=== PATIENT | female | born 1975 | race Caucasian/White ===

== ENCOUNTER 2020-09-13 17:10 | Inpatient (IN) | payer MEDICAID ==
[~2020-09-13] VITALS: Ht 175.3 cm; Wt 90.4 kg
--- NOTE | 2020-09-13 18:22 | PDOC2 ---
CONSULT Date of Consult Date of Consult DATE: 09/13/20 TIME: 18:17 Reason for Consult Reason for Consult: Abdominal pain Referring Physician Referring Physician: Pedro Identification/Chief Complaint Chief Complaint Abdominal pain nausea vomiting Source Source: Chart review, Patient History of Present Illness Reason for Visit: 45-year-old female with 2-week history of epigastric abdominal pain. She has been self-medicating with Aleve and ibuprofen. Does drink alcohol but has not for the last 3 days. She developed nausea vomiting over the last 24 hours and was told by a friend that a look like she was vomiting blood that is why she came to the emergency department for further evaluation. CT scan performed which showed abnormal thickening of the stomach consistent with gastritis as well as small extraluminal air perigastric concerning for gastric ulcer perforation. Patient currently is resting in bed describes her pain as 7 out of 10 although she appears fairly comfortable. She denies any nausea vomiting since coming to the emergency room. Patient denies any other medical problems although she has not seen a physician since 2006 and has not been taking her medications if she has not had a medical card since then but could not elaborate on the medication she is supposed to be taking Past Medical History Cardiovascular: No pertinent hx Pulmonary: No pertinent hx GI: No pertinent hx Heme/Onc: No pertinent hx Hepatobiliary: No pertinent hx Psych: No pertinent hx Rheumatologic: No pertinent hx Infectious disease: No pertinent hx ENT: No pertinent hx Renal/: No pertinent hx Endocrine: No pertinent hx Dermatology: No pertinent hx Past Surgical History Past Surgical History: Other (Repair of fracture left arm) Family History Family History: No Significant Social History ALCOHOL: occassional Drugs: None Lives: with Family ROS General: YES: Malaise Gastrointestinal: Yes Nausea, Yes Vomiting, Yes Abdominal Pain Physical Exam General: Alert, Oriented X3, Cooperative, mild distress HEENT: Atraumatic, EOMI Lungs: Clear to auscultation, Normal air movement Heart: Regular rate, No murmurs Abdomen: Soft, Other (Hypoactive bowel sounds tender to palpation in the epigastrium no peritoneal signs) Extremities: No edema Skin: No significant lesion Neuro: Normal speech Psych/Mental Status: Mental status NL Assessment/Plan Assessment/Plan Epigastric pain with possible gastric ulcer microperforation currently stable. Treat medically IV antibiotics proton pump inhibitor strict n.p.o. except for ice chips. Repeat lab in the a.m. with physical exam may need surgical interven tion if condition worsens JHONY NÚÑEZ MD Sep 13, 2020 18:22
[2020-09-13 19:00] VITALS: BP 117/77
[2020-09-13] MEDS ORDERED: IBUP200T44 PO (19:55)
[2020-09-13] MEDS ORDERED: NAPR500T8 PO (19:55)
[2020-09-13] MEDS: MORPHINE SULFATE 2 MG/ML INJ. IV PRN ×2 (20:39→22:53)
--- NOTE | 2020-09-13 20:59 | PDOC1 ---
History and Physical Date of Service: DOS: DATE: 09/13/20 TIME: 20:49 Chief Complaint: Chief Complain: Abdominal pain History of Present Illness: HPI: Patient is a 45-year-old female with past medical history of plaque psoriasis, alcohol use, smoking who presents with 2-week history of epigastric abdominal pain and nausea vomiting. Abdominal pain got worse last Thursday, 9 out of 10 cramping sensation. She states that there is some blood in her vomitus and it in her stool. Her last alcoholic drink was on . She has been taking Aleve and ibuprofen for her pains. She does not take any antiacid medications. She was seen in the ED at [facility] and found on CT scan performed which showed abnormal thickening of the stomach consistent with gastritis as well as small extraluminal air perigastric concerning for gastric ulcer perforation. Patient currently is complaining of epigastric abdominal pain and appears to be very much in distress. Past Medical/Surgical History: PMH/PSH: Medical history of plaque psoriasis. Denies any surgical history Allergies: Allergies: Coded Allergies: No Known Drug Allergies (Unverified , 09/13/20) Family History: Family History: Reviewed with no relevant findings Social History: Social History: Alcohol use not often according to her and continues to smoke Current Medications: Current Medications Current Medications Morphine Sulfate (Morphine Sulfate) 2 mg PRN Q2HR PRN IV PAIN Last administered on 09/13/20at 20:39; Start 09/13/20 at 20:30 Active Scripts Active Reported Motrin Ib (Ibuprofen) 200 Mg Tablet 200 Mg PO PRN Q4-6HRS PRN Naproxen 500 Mg Tablet.dr 500 Mg PO 6XDAY ROS: Review of Systems Review of System REVIEW OF SYSTEMS: GENERAL: Denies weakness SKIN: No bruising, hair changes or rashes. EYES: No blurred, double or loss of vision. NOSE AND THROAT: No history of nosebleeds, hoarseness or sore throat. HEART: No history of palpitations, chest pain or shortness of breath on exertion. LUNGS: Denies cough, hemoptysis, wheezing or shortness of breath. GASTROINTESTINAL: Denies changes in appetite, nausea, vomiting, diarrhea or constipation. GENITOURINARY: No history of frequency, urgency, hesitancy or nocturia. NEUROLOGIC: Denies history of numbness, tingling, or tremor. PSYCHIATRIC: No history of panic, anxiety or depression. ENDOCRINE: No history of heat or cold intolerance, polyuria or polydipsia. EXTREMITIES: Denies joint pain, pain on walking or stiffness. Physical Exam: Physcial Exam: GEN: No apparent distress. Alert and oriented HEENT: Normal cephalic, atraumatic, external auditory canals are patent EYES: Extraocular muscles are intact, pupil are equally round and reactive to light and accommodation MUSCULOSKELETAL: Well developed , well nourished, good range of motion ENDOCRINE: No thyromegaly was palpated LYMPHATICS: No cervical chain or axillary nodes were noted HEMATOPOIETIC: No bruising NECK: Supple, no JVD, no thyromegaly was noted LUNGS: Clear to auscultation in all lung ruggiero without rhonchi or wheezing HEART: RRR, S!, S2 present. Peripheral pulses intact, no obvious murmurs noted ABDOMEN: Soft, epigastric tenderness with guarding positive bowel sounds, no organomegaly, normal bowel sounds EXTREMITIES: Without clubbing, cyanosis, or edema. Pedal pulses intact. Negative Homans sign NEUROLOGIC: Normal speech and tone. A&O x 3, moves all extremities, no obvious focal deficits PSYCHIATRIC: Normal affect, normal mood. Stable SKIN: No ulcerations or rashes, good skin turgor, no jaundice VASCULAR: Good capillary refill, neurovascular bundle appears to be intact Labs: Labs: Significant for sodium of 130 Potassium of 2.9 Creatinine of 1.1 WBC of 20.6 Images: Images CT scan performed which showed abnormal thickening of the stomach consistent with gastritis as well as small extraluminal air perigastric concerning for gastric ulcer perforation Assessment/Plan Assessment/Plan Sepsis Acute abdominal pain due to perforated gastric ulcer Hyponatremia BARBARA due to vasomotor nephropathy Tobacco misuse Admit to medicine for further management General surgery consult Strict n.p.o. Continue IV fluids IV electrolyte replacement as needed IV Protonix Serial abdominal exams Contraindicated for DVT prophylaxis IV Protonix GI prophylaxis Full code Discussed with RN and SW Disposition inpatient management as above Surrogate decision maker is boyfriend Smoking cessation: Total time spent was 12 minutes in face to face counseling. Patient has agreed to consider nicotine patches/gum or to start on Varnicline when discharged Justifications for Admission Other Justification AVELINO RING MD Sep 13, 2020 20:59
[2020-09-13] MEDS ORDERED: DEXTROSE 50% 25 GM / 50ML DISP.SYRIN. IV PRN (21:00)
[2020-09-13] MEDS ORDERED: MORPHINE SULFATE 2 MG/ML INJ. IVP PRN (21:00)
[2020-09-13] MEDS ORDERED: ONDANSETRON PF 4 MG/2 ML VIAL. IVP PRN (21:00)
[2020-09-13] MEDS ORDERED: DOCUSATE SODIUM 100 MG CAPSULE. PO PRN (21:00)
[2020-09-13] MEDS ORDERED: SENNOSIDES 8.6 MG TABLET PO PRN (21:00)
[2020-09-13] MEDS ORDERED: MORPHINE SULFATE 2 MG/ML INJ. IV PRN (21:00)
[2020-09-13 21:31] LABS: BASO # 0.1 x10^3/uL (0.0-0.2); BASO % 1 % (0-3); EOS % 0 % (0-3); HEMATOCRIT 45.1 % (36.0-47.0); HEMOGLOBIN 15.3 g/dL (12.0-15.5); LYMPH # 0.2 x10^3/uL (1.0-4.8); LYMPH % 2 % (24-48); MEAN CORPUSCULAR HEMOGLOBIN 33 pg (25-35); MEAN CORPUSCULAR HGB CONC 34 g/dL (31-37); MEAN CORPUSCULAR VOLUME 97 fL (79-100); MONO # 0.3 x10^3/uL (0.0-1.1); MONO % 3 % (0-9); NEUT # 9.7 x10^3/uL (1.8-7.7); NEUT % 94 % (31-73); PLATELET COUNT 188 x10^3/uL (140-400); RED BLOOD COUNT 4.65 x10^6/uL (3.50-5.40); WHITE BLOOD COUNT 10.3 x10^3/uL (4.0-11.0)
[2020-09-13] MEDS: IV NORMAL SALINE 1000ML BAG 1,000 ML IV SCH (21:39)
[2020-09-13] MEDS: PANTOPRAZOLE IV PUSH 40 MG VIAL. IVP SCH (21:39)
[2020-09-13 21:46] LABS: ALBUMIN 3.4 g/dL (3.4-5.0); ALBUMIN/GLOBULIN RATIO 0.9 (1.0-1.7); CALCIUM 8.8 mg/dL (8.5-10.1); CREATININE 1.5 mg/dL (0.6-1.0); GFR 37.6; MAGNESIUM 1.6 mg/dL (1.8-2.4); PHOSPHORUS 2.6 mg/dL (2.6-4.7); POTASSIUM 3.9 mmol/L (3.5-5.1)
[2020-09-13 21:58] LABS: % BANDS 30 % (0-9); % LYMPHS 2 % (24-48); % MONOS 4 % (0-10); % SEGS 64 % (35-66); PLT ESTIMATE ADEQUATE (ADEQUATE); TOXIC VACUOLATION SLIGHT
[2020-09-13] MEDS: PIPERACILLIN/TAZOBACTAM 3.375 GM in IV NORMAL SALINE 50ML 50 ML IV SCH (22:53)
[2020-09-13 23:00] VITALS: BP 89/55
[2020-09-14] VITALS (20 sets, daily range): BP systolic 64–127; BP diastolic 40–77
[2020-09-14] MEDS ORDERED: ELECTROLYTE (NON-ICU) PROTOCOL. MC PRN (02:00)
[2020-09-14] MEDS: MORPHINE SULFATE 2 MG/ML INJ. IV PRN ×2 (02:19→18:27)
[2020-09-14] MEDS ORDERED: IV NORMAL SALINE 1000ML BAG 1,000 ML IV ONE ×2 (03:30)
[2020-09-14] MEDS ORDERED: MAGNESIUM SULFATE 2GM 50 ML IV ONE (03:30)
[2020-09-14] MEDS: DICYCLOMINE 20 MG/2 ML VIAL. IM PRN (04:15)
[2020-09-14] MEDS: PIPERACILLIN/TAZOBACTAM 3.375 GM in IV NORMAL SALINE 50ML 50 ML IV SCH ×2 (04:55→12:31)
[2020-09-14] MEDS: IV NORMAL SALINE 1000ML BAG 1,000 ML IV SCH ×3 (05:24→16:47)
--- NOTE | 2020-09-14 05:51 | NUR ---
Notified of low blood pressure and patient unable to urinate (bladder scan showed 0). Orders for another 500ml bolus and contact him with BP results when complete.
[2020-09-14] MEDS ORDERED: IV NORMAL SALINE 500ML BAG 500 ML IV ONE ×2 (06:15→07:15)
[2020-09-14 08:30] LABS: BASO % 0 % (0-3); EOS % 0 % (0-3); HEMATOCRIT 34.7 % (36.0-47.0); HEMOGLOBIN 11.6 g/dL (12.0-15.5); LYMPH # 0.4 x10^3/uL (1.0-4.8); LYMPH % 4 % (24-48); MEAN CORPUSCULAR HEMOGLOBIN 33 pg (25-35); MEAN CORPUSCULAR HGB CONC 33 g/dL (31-37); MEAN CORPUSCULAR VOLUME 99 fL (79-100); MONO # 0.4 x10^3/uL (0.0-1.1); MONO % 4 % (0-9); NEUT % 92 % (31-73); PLATELET COUNT 148 x10^3/uL (140-400); RED BLOOD COUNT 3.51 x10^6/uL (3.50-5.40); RED CELL DISTRIBUTION WIDTH 14.2 % (11.5-14.5); WHITE BLOOD COUNT 9.9 x10^3/uL (4.0-11.0)
[2020-09-14 09:08] LABS: CALCIUM 7.2 mg/dL (8.5-10.1); CREATININE 2.3 mg/dL (0.6-1.0); GFR 22.9; MAGNESIUM 1.9 mg/dL (1.8-2.4); PHOSPHORUS 2.9 mg/dL (2.6-4.7); POTASSIUM 3.7 mmol/L (3.5-5.1)
[2020-09-14] MEDS: PANTOPRAZOLE IV PUSH 40 MG VIAL. IVP SCH (10:18)
[2020-09-14 10:54] LABS: BARBITURATES NEG (NEG); BENZODIAZEPINES NEG (NEG); CANNABINOIDS NEG (NEG); COCAINE NEG (NEG); METHADONE NEG (NEG); OPIATES POS (NEG); PHENCYCLIDINE NEG (NEG)
[2020-09-14 10:56] LABS: AMPHETAMINE/METHAMPHETAMINE NEG (NEG)
--- NOTE | 2020-09-14 11:14 | PDOC ---
MARTIN GARCIA AMMONIUM NITRATE NEUTRALIZER 09/14/20 1114: SURGICAL PROGRESS NOTE DATE: 09/14/20 TIME: 11:12 Subjective ongoing pain d/w IPC, continue low pressor, now ARF, ICU tx Vital Signs Vital Signs Date Time Temp Pulse Resp B/P (MAP) Pulse Ox O2 Delivery O2 Flow Rate FiO2 09/14/20 08:00 Room Air 09/14/20 07:00 98.7 112 17 73/53 (60) 90 98.7 I&O Intake and Output 09/14/20 07:00 Intake Total 0 ml Balance 0 ml Intake Oral 0 ml General: Cooperative, Other (ill appearing ) Abdomen: Soft, Other (ttp upper abdomen) Labs Laboratory Tests Test 09/13/20 21:15 09/14/20 07:25 09/14/20 10:13 White Blood Count 10.3 x10^3/uL (4.0-11.0) 9.9 x10^3/uL (4.0-11.0) Red Blood Count 4.65 x10^6/uL (3.50-5.40) 3.51 x10^6/uL (3.50-5.40) Hemoglobin 15.3 g/dL (12.0-15.5) 11.6 g/dL (12.0-15.5) Hematocrit 45.1 % (36.0-47.0) 34.7 % (36.0-47.0) Mean Corpuscular Volume 97 fL (79-100) 99 fL (79-100) Mean Corpuscular Hemoglobin 33 pg (25-35) 33 pg (25-35) Mean Corpuscular Hemoglobin Concent 34 g/dL (31-37) 33 g/dL (31-37) Red Cell Distribution Width 14.0 % (11.5-14.5) 14.2 % (11.5-14.5) Platelet Count 188 x10^3/uL (140-400) 148 x10^3/uL (140-400) Neutrophils (%) (Auto) 94 % (31-73) 92 % (31-73) Lymphocytes (%) (Auto) 2 % (24-48) 4 % (24-48) Monocytes (%) (Auto) 3 % (0-9) 4 % (0-9) Eosinophils (%) (Auto) 0 % (0-3) 0 % (0-3) Basophils (%) (Auto) 1 % (0-3) 0 % (0-3) Neutrophils # (Auto) 9.7 x10^3/uL (1.8-7.7) 9.0 x10^3/uL (1.8-7.7) Lymphocytes # (Auto) 0.2 x10^3/uL (1.0-4.8) 0.4 x10^3/uL (1.0-4.8) Monocytes # (Auto) 0.3 x10^3/uL (0.0-1.1) 0.4 x10^3/uL (0.0-1.1) Eosinophils # (Auto) 0.0 x10^3/uL (0.0-0.7) 0.0 x10^3/uL (0.0-0.7) Basophils # (Auto) 0.1 x10^3/uL (0.0-0.2) 0.0 x10^3/uL (0.0-0.2) Segmented Neutrophils % 64 % (35-66) Band Neutrophils % 30 % (0-9) Lymphocytes % 2 % (24-48) Monocytes % 4 % (0-10) Toxic Vacuolation Slight Platelet Estimate Adequate (ADEQUATE) Prothrombin Time 13.0 SEC (11.7-14.0) Prothromb Time International Ratio 1.0 (0.8-1.1) Sodium Level 132 mmol/L (136-145) 138 mmol/L (136-145) Potassium Level 3.9 mmol/L (3.5-5.1) 3.7 mmol/L (3.5-5.1) Chloride Level 98 mmol/L (98-107) 108 mmol/L (98-107) Carbon Dioxide Level 24 mmol/L (21-32) 19 mmol/L (21-32) Anion Gap 10 (6-14) 11 (6-14) Blood Urea Nitrogen 19 mg/dL (7-20) 24 mg/dL (7-20) Creatinine 1.5 mg/dL (0.6-1.0) 2.3 mg/dL (0.6-1.0) Estimated GFR (Cockcroft-Gault) 37.6 22.9 BUN/Creatinine Ratio 13 (6-20) Glucose Level 134 mg/dL (70-99) 109 mg/dL (70-99) Lactic Acid Level 1.8 mmol/L (0.4-2.0) Calcium Level 8.8 mg/dL (8.5-10.1) 7.2 mg/dL (8.5-10.1) Phosphorus Level 2.6 mg/dL (2.6-4.7) 2.9 mg/dL (2.6-4.7) Magnesium Level 1.6 mg/dL (1.8-2.4) 1.9 mg/dL (1.8-2.4) Total Bilirubin 1.0 mg/dL (0.2-1.0) Aspartate Amino Transf (AST/SGOT) 14 U/L (15-37) Alanine Aminotransferase (ALT/SGPT) 12 U/L (14-59) Alkaline Phosphatase 56 U/L (46-116) Total Protein 7.0 g/dL (6.4-8.2) Albumin 3.4 g/dL (3.4-5.0) Albumin/Globulin Ratio 0.9 (1.0-1.7) Urine Opiates Screen Pos (NEG) Urine Methadone Screen Neg (NEG) Urine Barbiturates Neg (NEG) Urine Phencyclidine Screen Neg (NEG) Urine Amphetamine/Methamphetamine Neg (NEG) Urine Benzodiazepines Screen Neg (NEG) Urine Cocaine Screen Neg (NEG) Urine Cannabinoids Screen Neg (NEG) Urine Ethyl Alcohol Neg (NEG) Laboratory Tests Test 09/13/20 21:15 09/14/20 07:25 09/14/20 10:13 White Blood Count 10.3 x10^3/uL (4.0-11.0) 9.9 x10^3/uL (4.0-11.0) Red Blood Count 4.65 x10^6/uL (3.50-5.40) 3.51 x10^6/uL (3.50-5.40) Hemoglobin 15.3 g/dL (12.0-15.5) 11.6 g/dL (12.0-15.5) Hematocrit 45.1 % (36.0-47.0) 34.7 % (36.0-47.0) Mean Corpuscular Volume 97 fL (79-100) 99 fL (79-100) Mean Corpuscular Hemoglobin 33 pg (25-35) 33 pg (25-35) Mean Corpuscular Hemoglobin Concent 34 g/dL (31-37) 33 g/dL (31-37) Red Cell Distribution Width 14.0 % (11.5-14.5) 14.2 % (11.5-14.5) Platelet Count 188 x10^3/uL (140-400) 148 x10^3/uL (140-400) Neutrophils (%) (Auto) 94 % (31-73) 92 % (31-73) Lymphocytes (%) (Auto) 2 % (24-48) 4 % (24-48) Monocytes (%) (Auto) 3 % (0-9) 4 % (0-9) Eosinophils (%) (Auto) 0 % (0-3) 0 % (0-3) Basophils (%) (Auto) 1 % (0-3) 0 % (0-3) Neutrophils # (Auto) 9.7 x10^3/uL (1.8-7.7) 9.0 x10^3/uL (1.8-7.7) Lymphocytes # (Auto) 0.2 x10^3/uL (1.0-4.8) 0.4 x10^3/uL (1.0-4.8) Monocytes # (Auto) 0.3 x10^3/uL (0.0-1.1) 0.4 x10^3/uL (0.0-1.1) Eosinophils # (Auto) 0.0 x10^3/uL (0.0-0.7) 0.0 x10^3/uL (0.0-0.7) Basophils # (Auto) 0.1 x10^3/uL (0.0-0.2) 0.0 x10^3/uL (0.0-0.2) Segmented Neutrophils % 64 % (35-66) Band Neutrophils % 30 % (0-9) Lymphocytes % 2 % (24-48) Monocytes % 4 % (0-10) Toxic Vacuolation Slight Platelet Estimate Adequate (ADEQUATE) Prothrombin Time 13.0 SEC (11.7-14.0) Prothromb Time International Ratio 1.0 (0.8-1.1) Sodium Level 132 mmol/L (136-145) 138 mmol/L (136-145) Potassium Level 3.9 mmol/L (3.5-5.1) 3.7 mmol/L (3.5-5.1) Chloride Level 98 mmol/L (98-107) 108 mmol/L (98-107) Carbon Dioxide Level 24 mmol/L (21-32) 19 mmol/L (21-32) Anion Gap 10 (6-14) 11 (6-14) Blood Urea Nitrogen 19 mg/dL (7-20) 24 mg/dL (7-20) Creatinine 1.5 mg/dL (0.6-1.0) 2.3 mg/dL (0.6-1.0) Estimated GFR (Cockcroft-Gault) 37.6 22.9 BUN/Creatinine Ratio 13 (6-20) Glucose Level 134 mg/dL (70-99) 109 mg/dL (70-99) Lactic Acid Level 1.8 mmol/L (0.4-2.0) Calcium Level 8.8 mg/dL (8.5-10.1) 7.2 mg/dL (8.5-10.1) Phosphorus Level 2.6 mg/dL (2.6-4.7) 2.9 mg/dL (2.6-4.7) Magnesium Level 1.6 mg/dL (1.8-2.4) 1.9 mg/dL (1.8-2.4) Total Bilirubin 1.0 mg/dL (0.2-1.0) Aspartate Amino Transf (AST/SGOT) 14 U/L (15-37) Alanine Aminotransferase (ALT/SGPT) 12 U/L (14-59) Alkaline Phosphatase 56 U/L (46-116) Total Protein 7.0 g/dL (6.4-8.2) Albumin 3.4 g/dL (3.4-5.0) Albumin/Globulin Ratio 0.9 (1.0-1.7) Urine Opiates Screen Pos (NEG) Urine Methadone Screen Neg (NEG) Urine Barbiturates Neg (NEG) Urine Phencyclidine Screen Neg (NEG) Urine Amphetamine/Methamphetamine Neg (NEG) Urine Benzodiazepines Screen Neg (NEG) Urine Cocaine Screen Neg (NEG) Urine Cannabinoids Screen Neg (NEG) Urine Ethyl Alcohol Neg (NEG) Assessment/Plan gastric ulcer, possible perf will review with Dr Núñez, likely require surgical intervention Justicifation of Admission Dx: Justifications for Admission: Justification of Admission Dx: Yes Sepsis: Hemodynamic Instability JHONY NÚÑEZ MD 09/14/20 1136: SURGICAL PROGRESS NOTE Assessment/Plan Patient with continued pain elevated lactate decreased urine output hypotension in light of these changes plan on diagnostic laparoscopy with repair of presumed gastric ulcer or duodenal ulcer may need open laparotomy this was discussed with the patient plan for surgery today MARTIN GARCIA APRN Sep 14, 2020 11:14 JHONY NÚÑEZ MD Sep 14, 2020 11:36
[2020-09-14] MEDS ORDERED: VASOPRESSIN 20 UNIT in IV DEXTROSE 5% 100ML 100 ML IV PRN (11:15)
[2020-09-14] MEDS ORDERED: IV RINGERS,LACTATED 1000ML 1,000 ML IV SCH (12:00)
[2020-09-14] MEDS ORDERED: HYDROmorphone 2 MG/ML VIAL IVP PRN (12:00)
[2020-09-14] MEDS ORDERED: fentaNYL PF VIAL 100 MCG/2 ML VIAL IVP PRN (12:00)
[2020-09-14] MEDS ORDERED: PROCHLORPERAZINE 10 MG/2 ML VIAL. IVP PRN (12:00)
[2020-09-14] MEDS ORDERED: MORPHINE SULFATE 2 MG/ML INJ. IVP PRN (12:00)
[2020-09-14] MEDS: PANTOPRAZOLE SODIUM IV DRIP 80 MG in IV NORMAL SALINE 100ML 100 ML IV SCH ×2 (12:01→19:54)
[2020-09-14] MEDS: NOREPINEPHRINE VIAL 8 MG in IV DEXTROSE 5% 250 ML IV PRN ×2 (12:02→23:55)
--- NOTE | 2020-09-14 12:24 | PDOC ---
[facility] [facility] PROGRESS NOTE Date of Service DOS: DATE: 09/14/20 TIME: 12:21 Chief Complaint Chief Complaint Septic shock Hemodynamic instability BARBARA due to vasomotor nephropathyworsening Acute abdominal pain due to perforated gastric ulcer, concern for uncontained perforation Hyponatremia Tobacco misuse Admit to medicine for further management General surgery consult Strict n.p.o. Continue IV fluids IV electrolyte replacement as needed IV Protonix Serial abdominal exams Contraindicated for DVT prophylaxis IV Protonix GI prophylaxis Full code Discussed with RN and SW Disposition inpatient management as above Surrogate decision maker is boyfriend History of Present Illness History of Present Illness 45-year-old female with past medical history of plaque psoriasis, alcohol use, smoking who presents with 2-week history of epigastric abdominal pain and nausea vomiting. Abdominal pain got worse last Thursday, 9 out of 10 cramping sensation. She states that there is some blood in her vomitus and it in her stool. Her last alcoholic drink was on . She has been taking Aleve and ibuprofen for her pains. She does not take any antiacid medications. She was seen in the ED at [facility] and found on CT scan performed which showed abnormal thickening of the stomach consistent with gastritis as well as small extraluminal air perigastric concerning for gastric ulcer perforation. Patient currently is complaining of epigastric abdominal pain and appears to be very much in distress. 09/14/2020 Patient with labile blood pressures hanging in the low 70s to 80s systolics. About 3 L normal saline bolus and no urine output for the past 6 hours. Creatinine increased from 1.2-2.6. Patient will be transferred to the ICU for vasopressor and possible surgical intervention. Abdominal exam remained stable throughout my call. Patient's chart, labs, images were reviewed and discussed with RN Vitals/I&O Vitals/I&O: Vital Signs Date Time Temp Pulse Resp B/P (MAP) Pulse Ox O2 Delivery O2 Flow Rate FiO2 09/14/20 12:15 97.6 114 16 83/57 (66) 98 Room Air 97.6 I & O 09/13/20 09/13/20 09/14/20 15:00 23:00 07:00 Intake Total 0 ml Balance 0 ml Physical Exam General: Cooperative, Other (ill appearing ) Heart: Regular rate, No murmurs Abdomen: Soft, Other (ttp upper abdomen) Extremities: No edema Skin: No significant lesion Labs Labs: Laboratory Tests Test 09/13/20 21:15 09/14/20 07:25 09/14/20 09:30 09/14/20 10:13 White Blood Count 10.3 x10^3/uL (4.0-11.0) 9.9 x10^3/uL (4.0-11.0) Red Blood Count 4.65 x10^6/uL (3.50-5.40) 3.51 x10^6/uL (3.50-5.40) Hemoglobin 15.3 g/dL (12.0-15.5) 11.6 g/dL (12.0-15.5) Hematocrit 45.1 % (36.0-47.0) 34.7 % (36.0-47.0) Mean Corpuscular Volume 97 fL (79-100) 99 fL (79-100) Mean Corpuscular Hemoglobin 33 pg (25-35) 33 pg (25-35) Mean Corpuscular Hemoglobin Concent 34 g/dL (31-37) 33 g/dL (31-37) Red Cell Distribution Width 14.0 % (11.5-14.5) 14.2 % (11.5-14.5) Platelet Count 188 x10^3/uL (140-400) 148 x10^3/uL (140-400) Neutrophils (%) (Auto) 94 % (31-73) 92 % (31-73) Lymphocytes (%) (Auto) 2 % (24-48) 4 % (24-48) Monocytes (%) (Auto) 3 % (0-9) 4 % (0-9) Eosinophils (%) (Auto) 0 % (0-3) 0 % (0-3) Basophils (%) (Auto) 1 % (0-3) 0 % (0-3) Neutrophils # (Auto) 9.7 x10^3/uL (1.8-7.7) 9.0 x10^3/uL (1.8-7.7) Lymphocytes # (Auto) 0.2 x10^3/uL (1.0-4.8) 0.4 x10^3/uL (1.0-4.8) Monocytes # (Auto) 0.3 x10^3/uL (0.0-1.1) 0.4 x10^3/uL (0.0-1.1) Eosinophils # (Auto) 0.0 x10^3/uL (0.0-0.7) 0.0 x10^3/uL (0.0-0.7) Basophils # (Auto) 0.1 x10^3/uL (0.0-0.2) 0.0 x10^3/uL (0.0-0.2) Segmented Neutrophils % 64 % (35-66) Band Neutrophils % 30 % (0-9) Lymphocytes % 2 % (24-48) Monocytes % 4 % (0-10) Toxic Vacuolation Slight Platelet Estimate Adequate (ADEQUATE) Prothrombin Time 13.0 SEC (11.7-14.0) Prothromb Time International Ratio 1.0 (0.8-1.1) Sodium Level 132 mmol/L (136-145) 138 mmol/L (136-145) Potassium Level 3.9 mmol/L (3.5-5.1) 3.7 mmol/L (3.5-5.1) Chloride Level 98 mmol/L (98-107) 108 mmol/L (98-107) Carbon Dioxide Level 24 mmol/L (21-32) 19 mmol/L (21-32) Anion Gap 10 (6-14) 11 (6-14) Blood Urea Nitrogen 19 mg/dL (7-20) 24 mg/dL (7-20) Creatinine 1.5 mg/dL (0.6-1.0) 2.3 mg/dL (0.6-1.0) Estimated GFR (Cockcroft-Gault) 37.6 22.9 BUN/Creatinine Ratio 13 (6-20) Glucose Level 134 mg/dL (70-99) 109 mg/dL (70-99) Lactic Acid Level 1.8 mmol/L (0.4-2.0) 2.3 mmol/L (0.4-2.0) Calcium Level 8.8 mg/dL (8.5-10.1) 7.2 mg/dL (8.5-10.1) Phosphorus Level 2.6 mg/dL (2.6-4.7) 2.9 mg/dL (2.6-4.7) Magnesium Level 1.6 mg/dL (1.8-2.4) 1.9 mg/dL (1.8-2.4) Total Bilirubin 1.0 mg/dL (0.2-1.0) Aspartate Amino Transf (AST/SGOT) 14 U/L (15-37) Alanine Aminotransferase (ALT/SGPT) 12 U/L (14-59) Alkaline Phosphatase 56 U/L (46-116) Total Protein 7.0 g/dL (6.4-8.2) Albumin 3.4 g/dL (3.4-5.0) Albumin/Globulin Ratio 0.9 (1.0-1.7) Urine Opiates Screen Pos (NEG) Urine Methadone Screen Neg (NEG) Urine Barbiturates Neg (NEG) Urine Phencyclidine Screen Neg (NEG) Urine Amphetamine/Methamphetamine Neg (NEG) Urine Benzodiazepines Screen Neg (NEG) Urine Cocaine Screen Neg (NEG) Urine Cannabinoids Screen Neg (NEG) Urine Ethyl Alcohol Neg (NEG) Comment Review of Relevant I have reviewed the following items joel (where applicable) has been applied. Medications: Current Medications Medications (Trade) Dose Ordered Sig/Mouna Route PRN Reason Start Time Stop Time Status Last Admin Dose Admin Morphine Sulfate (Morphine Sulfate) 2 mg PRN Q2HR PRN IV PAIN 09/13/20 20:30 09/14/20 02:19 Sodium Chloride 1,000 ml @ 150 mls/hr Q6H40M IV 09/13/20 21:00 09/14/20 12:03 Piperacillin Sod/ Tazobactam Sod 3.375 gm/Sodium Chloride 50 ml @ 100 mls/hr Q6HRS IV 09/14/20 00:00 09/14/20 04:55 Pantoprazole Sodium (PROTONIX VIAL for IV PUSH) 40 mg BID IVP 09/13/20 21:00 09/14/20 10:42 DC 09/14/20 10:18 Magnesium Sulfate 50 ml @ 25 mls/hr 1X ONCE IV 09/14/20 03:30 09/14/20 05:29 DC 09/14/20 04:14 Dicyclomine HCl (Bentyl) 10 mg PRN QID PRN IM ABDOMINAL CRAMPS 09/14/20 03:00 09/14/20 04:15 Sodium Chloride 1,000 ml @ 1,000 mls/hr 1X ONCE IV 09/14/20 03:30 09/14/20 04:29 DC 09/14/20 04:15 Sodium Chloride 1,000 ml @ 1,000 mls/hr 1X ONCE IV 09/14/20 03:30 09/14/20 04:29 DC 09/14/20 04:15 Sodium Chloride 500 ml @ 500 mls/hr 1X ONCE IV 09/14/20 06:15 09/14/20 07:14 DC 09/14/20 06:15 Sodium Chloride 500 ml @ 500 mls/hr 1X ONCE IV 09/14/20 07:15 09/14/20 08:14 DC 09/14/20 07:15 Pantoprazole Sodium 80 mg/ Sodium Chloride 100 ml @ 10 mls/hr Q10H IV 09/14/20 11:30 09/14/20 12:01 Norepinephrine Bitartrate 8 mg/ Dextrose 258 ml @ 15.48 mls/ hr CONT PRN IV PER PROTOCOL 09/14/20 11:15 09/14/20 12:02 Justifications for Admission Other Justification Abdominal pain due to perforated gastric ulcer AVELINO RING MD Sep 14, 2020 12:24
--- NOTE | 2020-09-14 12:38 | NUR ---
SW following. Discussed with RN, pt from home, room air, NPO. Pt's blood pressure low. Pt transferred to the ICU. Michelle (JUWAN) to follow.
[2020-09-14] MEDS ORDERED: SUCCINYLCHOLINE 200 MG/10 ML VIAL. ONE (13:15)
[2020-09-14] MEDS ORDERED: ELECTROLYTE (ICU) PROTOCOL. MC PRN (13:15)
[2020-09-14] MEDS ORDERED: VASOPRESSIN 20 UNIT/ML VIAL. ONE (13:15)
[2020-09-14] MEDS ORDERED: ROCURONIUM 50 MG/5 ML VIAL. ONE ×2 (13:15→14:35)
[2020-09-14] MEDS ORDERED: KETAMINE HCL IN NACL, ISO-OSM 50 MG/5 ML SYRINGE ONE (13:15)
[2020-09-14] MEDS ORDERED: MIDAZOLAM HCL/PF 2 MG/2 ML VIAL. ONE (13:16)
[2020-09-14 13:32] LABS: U PREG PATIENT NEGATIVE (NEG)
[2020-09-14] MEDS ORDERED: BUPIVACAINE-EPI 0.25%-1:200000 MPF 30 ML VIAL. ONE (13:38)
[2020-09-14] MEDS ORDERED: SEVOFLURANE 61 TO 120 MINUTES. IH ONE (15:23)
[2020-09-14] MEDS ORDERED: NEOSTIGMINE 10 MG/10 ML VIAL. ONE (15:29)
[2020-09-14] MEDS ORDERED: GLYCOPYRROLATE 1 MG/5 ML VIAL. ONE (15:29)
--- NOTE | 2020-09-14 15:33 | PDOC4 ---
Operative Note Operative Note Date: September 14, 2020 at 1528 Preoperative diagnosis: Perforated gastric ulcer Postoperative diagnosis: Same Procedure: Robotic assisted laparoscopic repair of gastric ulcer and French patch Surgeon: Marshall Specimen: None Dictation: Patient is a 45-year-old female was mated to the hospital with epigastric abdominal pain but hemodynamically stable. Over the night she became unstable with more pain. The procedure of laparoscopic repair of gastric ulcer possible open repair was explained to the patient in detail risk benefits were also discussed including bleeding infection injury to intra-abdominal contents possible necessitating further or open operations alternatives to this procedure also discussed with the patient who seemed to understand and gave a verbal written consent to have the procedure performed. Patient was taken to the operating room placed in the supine position general anesthesia was initiated once patient was sleeping intubated central line was placed by anesthesia and then her abdomen was prepped and draped in usual sterile fashion using ChloraPrep. An area just below the umbilicus was injected with quarter percent Marcaine with epinephrine incision was made 11 blade scalpel and a varies needle was placed creating pneumoperitoneum once this was complete a 5 mm port was placed and a 5 mm camera was placed within the abdomen was noted there is quite a bit of ascites. A 5 mm port was placed in the left midabdomen and a 5 mm port was placed in the right midabdomen. Using a grasper the anterior surface of the stomach was visualized and inspected towards the distal end of the stomach prepyloric area there was a attached portion of omentum with blackened surface that came off of the stomach very easily and underneath that was a dime sized hole within the stomach. At this point the 5 mm ports were changed out for 8 mm da Ramana ports the da Ramana robot is brought and docked all port sites surgeon went to the robotic console using a grasper and needle drivers a two OV lock absorbable suture was used to oversew the ulcer closing the hole. A tongue of omentum was then placed over the top of this and sewn to the stomach covering the portion of the closed hole as a French patch. The abdomen was suctioned and irrigated especially the right and left upper quadrants. At this point the da Ramana robot was undocked from all ports surgeon went back to the operative field and a 19 Sami STONE drain was placed through the right port site the drain was placed between the liver and the stomach from the left to the right side this was sewn into place with a 2-0 silk. The pneumoperitoneum was reduced all ports were removed port sites were all closed with 4 subcuticular Monocryl Mastisol Steri-Strips and island dressings were applied. Patient was awakened and extubated in the operating room taken to recovery in stable condition all sponge instrument needle counts listed as correct estimated blood loss 5 mL JHONY NÚÑEZ MD Sep 14, 2020 15:33
[2020-09-14] MEDS ORDERED: fentaNYL PF VIAL 100 MCG/2 ML VIAL ONE ×2 (16:04→16:06)
[2020-09-14] MEDS ORDERED: PHENYLEPHRINE in 0.9% NACL PF 1 MG/10 ML SYRINGE. IV ONE (16:05)
[2020-09-14] MEDS ORDERED: PROCHLORPERAZINE 10 MG/2 ML VIAL. ONE (16:06)
[2020-09-14] MEDS: fentaNYL PF VIAL 100 MCG/2 ML VIAL IVP PRN ×4 (16:11→23:44)
--- NOTE | 2020-09-14 16:37 | RAD ---
Portable chest x-ray without comparison for status post line placement, NG tube placement. FINDINGS: There is a right IJ central line the distal tip which is at the cavoatrial junction, suitab le for use. There is an enteric tube present as well, the distal tip of which is in the distal esopha amara. Advancement by 10-12 cm is recommended. Left basilar effusion with associated atelectasis or inf iltrate. Myocardial megaly. Line overlying the abdomen of uncertain location and significance. Subjac ent emphysema throughout the left hemiabdominal wall is seen on the margin of the film. There is an o ld fracture of left clavicle which may be chronically nonunited. IMPRESSION: 1. Short enterogastric tube at the level of the distal esophagus. Advancement by 10 to 12 cm is recom mended. 2. Left pleural effusion with associated atelectasis or infiltrate. 3. Patchy gas within the left hemiabdominal wall at the lateral margin of the film. This is new from the patient's CT scan dated 09/13/2020, and may be postoperative? 4. 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
--- NOTE | 2020-09-14 16:40 | RAD ---
KUB without comparison for NG tube placement. FINDINGS: Enteric tube is present with the distal aspect of the tube within the gastric lumen. There is a drain projecting over the abdomen. There is large amount of subcutaneous is air throughout the l eft hemiabdominal wall. There is some contrast in the colon, and there are air-filled dilated loops o f small bowel over the left hemiabdomen. Bilateral pleural effusions, left greater than right are pre sent along with atelectasis and/or infiltrate at the left lung base. IMPRESSION: 1. Appropriate positioned enterogastric tube. 2. Other post surgical changes as described. Electronically signed by: Job Sexton MD (09/14/2020 4:38 PM) [id number]
[2020-09-14] MEDS: PIPERACILLIN/TAZOBACTAM 2.25 GM in IV NORMAL SALINE 50ML 50 ML IV SCH ×2 (18:28→23:47)
[2020-09-15] VITALS (20 sets, daily range): BP systolic 91–120; BP diastolic 64–92
[2020-09-15] MEDS: IV NORMAL SALINE 1000ML BAG 1,000 ML IV SCH ×4 (02:05→20:16)
[2020-09-15] MEDS: fentaNYL PF VIAL 100 MCG/2 ML VIAL IVP PRN ×8 (03:52→20:17)
[2020-09-15] MEDS: NOREPINEPHRINE VIAL 8 MG in IV DEXTROSE 5% 250 ML IV PRN (05:25)
[2020-09-15] MEDS: PANTOPRAZOLE SODIUM IV DRIP 80 MG in IV NORMAL SALINE 100ML 100 ML IV SCH ×2 (05:25→16:22)
[2020-09-15] MEDS: PIPERACILLIN/TAZOBACTAM 2.25 GM in IV NORMAL SALINE 50ML 50 ML IV SCH ×2 (05:26→11:54)
[2020-09-15 08:40] LABS: HEMATOCRIT 32.9 % (36.0-47.0); HEMOGLOBIN 10.9 g/dL (12.0-15.5); RED BLOOD COUNT 3.36 x10^6/uL (3.50-5.40); RED CELL DISTRIBUTION WIDTH 14.4 % (11.5-14.5); WHITE BLOOD COUNT 20.5 x10^3/uL (4.0-11.0)
[2020-09-15 09:14] LABS: ALBUMIN 1.9 g/dL (3.4-5.0); ALBUMIN/GLOBULIN RATIO 0.6 (1.0-1.7); CALCIUM 7.3 mg/dL (8.5-10.1); CREATININE 1.1 mg/dL (0.6-1.0); GFR 53.7; POTASSIUM 3.7 mmol/L (3.5-5.1); TOTAL BILIRUBIN 0.4 mg/dL (0.2-1.0); TOTAL PROTEIN 5.2 g/dL (6.4-8.2)
--- NOTE | 2020-09-15 09:20 | PDOC ---
PROGRESS NOTES Date of Service: DATE: 09/15/20 TIME: 09:20 Chief Complaint Chief Complaint Septic shock Hemodynamic instability BARBARA due to vasomotor nephropathyworsening Acute abdominal pain due to perforated gastric ulcer, concern for uncontained perforation Hyponatremia Tobacco misuse Admit to medicine for further management General surgery consult Strict n.p.o. Continue IV fluids IV electrolyte replacement as needed IV Protonix Serial abdominal exams Contraindicated for DVT prophylaxis IV Protonix GI prophylaxis Full code Discussed with RN and SW Disposition inpatient management as above Surrogate decision maker is boyfriend History of Present Illness History of Present Illness 45-year-old female with past medical history of plaque psoriasis, alcohol use, smoking who presents with 2-week history of epigastric abdominal pain and nausea vomiting. Abdominal pain got worse last Thursday, 9 out of 10 cramping sensation. She states that there is some blood in her vomitus and it in her stool. Her last alcoholic drink was on . She has been taking Aleve and ibuprofen for her pains. She does not take any antiacid medications. She was seen in the ED at [facility] and found on CT scan performed which showed abnormal thickening of the stomach consistent with gastritis as well as small extraluminal air perigastric concerning for gastric ulcer perforation. Patient currently is complaining of epigastric abdominal pain and appears to be very much in distress. 09/15/2020 Patient with labile blood pressures hanging in the low 70s to 80s systolics. Creatinine increased from 1.2-2.6. transferred to the ICU for vasopressor and possible surgical intervention. Patient's chart, labs, images were reviewed and discussed with RN Septic shock Hemodynamic instability BARBARA due to vasomotor nephropathyworsening Acute abdominal pain due to perforated gastric ulcer, concern for uncontained perforation Hyponatremia Tobacco misuse Admit to medicine for further management General surgery consult Strict n.p.o. Continue IV fluids IV electrolyte replacement as needed IV Protonix Serial abdominal exams Contraindicated for DVT prophylaxis 33 min cc time Vitals Vitals Vital Signs Date Time Temp Pulse Resp B/P (MAP) Pulse Ox O2 Delivery O2 Flow Rate FiO2 09/15/20 08:24 30 97 Room Air 6.0 09/15/20 06:00 92 108/76 (87) 09/15/20 04:00 99.1 99.1 Physical Exam General: Alert, Oriented X3, Cooperative, No acute distress, Other (ill appea ring ) Heart: Regular rate, Normal S1, Normal S2, No murmurs Abdomen: Soft, Other (ttp upper abdomen) Extremities: No cyanosis, No edema Skin: No significant lesion Labs LABS Laboratory Tests Test 09/14/20 09:30 09/14/20 10:13 09/14/20 13:04 09/14/20 13:08 Lactic Acid Level 2.3 mmol/L (0.4-2.0) Urine Opiates Screen Pos (NEG) Urine Methadone Screen Neg (NEG) Urine Barbiturates Neg (NEG) Urine Phencyclidine Screen Neg (NEG) Urine Amphetamine/Methamphetamine Neg (NEG) Urine Benzodiazepines Screen Neg (NEG) Urine Cocaine Screen Neg (NEG) Urine Cannabinoids Screen Neg (NEG) Urine Ethyl Alcohol Neg (NEG) SARS-CoV-2 Antigen (Rapid) Negative (NEGATIVE) Urine Test Negative (NEG) Test 09/14/20 14:30 09/15/20 08:30 Lactic Acid Level 1.6 mmol/L (0.4-2.0) White Blood Count 20.5 x10^3/uL (4.0-11.0) Red Blood Count 3.36 x10^6/uL (3.50-5.40) Hemoglobin 10.9 g/dL (12.0-15.5) Hematocrit 32.9 % (36.0-47.0) Mean Corpuscular Volume 98 fL (79-100) Mean Corpuscular Hemoglobin 32 pg (25-35) Mean Corpuscular Hemoglobin Concent 33 g/dL (31-37) Red Cell Distribution Width 14.4 % (11.5-14.5) Platelet Count 181 x10^3/uL (140-400) Sodium Level 138 mmol/L (136-145) Potassium Level 3.7 mmol/L (3.5-5.1) Chloride Level 109 mmol/L (98-107) Carbon Dioxide Level 19 mmol/L (21-32) Anion Gap 10 (6-14) Blood Urea Nitrogen 25 mg/dL (7-20) Creatinine 1.1 mg/dL (0.6-1.0) Estimated GFR (Cockcroft-Gault) 53.7 BUN/Creatinine Ratio 23 (6-20) Glucose Level 119 mg/dL (70-99) Calcium Level 7.3 mg/dL (8.5-10.1) Total Bilirubin 0.4 mg/dL (0.2-1.0) Aspartate Amino Transf (AST/SGOT) 33 U/L (15-37) Alanine Aminotransferase (ALT/SGPT) 16 U/L (14-59) Alkaline Phosphatase 56 U/L (46-116) Total Protein 5.2 g/dL (6.4-8.2) Albumin 1.9 g/dL (3.4-5.0) Albumin/Globulin Ratio 0.6 (1.0-1.7) Comment Review of Relevant I have reviewed the following items joel (where applicable) has been applied. Labs Laboratory Tests Test 09/13/20 21:15 09/14/20 07:25 09/14/20 09:30 09/14/20 10:13 White Blood Count 10.3 x10^3/uL (4.0-11.0) 9.9 x10^3/uL (4.0-11.0) Red Blood Count 4.65 x10^6/uL (3.50-5.40) 3.51 x10^6/uL (3.50-5.40) Hemoglobin 15.3 g/dL (12.0-15.5) 11.6 g/dL (12.0-15.5) Hematocrit 45.1 % (36.0-47.0) 34.7 % (36.0-47.0) Mean Corpuscular Volume 97 fL (79-100) 99 fL (79-100) Mean Corpuscular Hemoglobin 33 pg (25-35) 33 pg (25-35) Mean Corpuscular Hemoglobin Concent 34 g/dL (31-37) 33 g/dL (31-37) Red Cell Distribution Width 14.0 % (11.5-14.5) 14.2 % (11.5-14.5) Platelet Count 188 x10^3/uL (140-400) 148 x10^3/uL (140-400) Neutrophils (%) (Auto) 94 % (31-73) 92 % (31-73) Lymphocytes (%) (Auto) 2 % (24-48) 4 % (24-48) Monocytes (%) (Auto) 3 % (0-9) 4 % (0-9) Eosinophils (%) (Auto) 0 % (0-3) 0 % (0-3) Basophils (%) (Auto) 1 % (0-3) 0 % (0-3) Neutrophils # (Auto) 9.7 x10^3/uL (1.8-7.7) 9.0 x10^3/uL (1.8-7.7) Lymphocytes # (Auto) 0.2 x10^3/uL (1.0-4.8) 0.4 x10^3/uL (1.0-4.8) Monocytes # (Auto) 0.3 x10^3/uL (0.0-1.1) 0.4 x10^3/uL (0.0-1.1) Eosinophils # (Auto) 0.0 x10^3/uL (0.0-0.7) 0.0 x10^3/uL (0.0-0.7) Basophils # (Auto) 0.1 x10^3/uL (0.0-0.2) 0.0 x10^3/uL (0.0-0.2) Segmented Neutrophils % 64 % (35-66) Band Neutrophils % 30 % (0-9) Lymphocytes % 2 % (24-48) Monocytes % 4 % (0-10) Toxic Vacuolation Slight Platelet Estimate Adequate (ADEQUATE) Prothrombin Time 13.0 SEC (11.7-14.0) Prothromb Time International Ratio 1.0 (0.8-1.1) Sodium Level 132 mmol/L (136-145) 138 mmol/L (136-145) Potassium Level 3.9 mmol/L (3.5-5.1) 3.7 mmol/L (3.5-5.1) Chloride Level 98 mmol/L (98-107) 108 mmol/L (98-107) Carbon Dioxide Level 24 mmol/L (21-32) 19 mmol/L (21-32) Anion Gap 10 (6-14) 11 (6-14) Blood Urea Nitrogen 19 mg/dL (7-20) 24 mg/dL (7-20) Creatinine 1.5 mg/dL (0.6-1.0) 2.3 mg/dL (0.6-1.0) Estimated GFR (Cockcroft-Gault) 37.6 22.9 BUN/Creatinine Ratio 13 (6-20) Glucose Level 134 mg/dL (70-99) 109 mg/dL (70-99) Lactic Acid Level 1.8 mmol/L (0.4-2.0) 2.3 mmol/L (0.4-2.0) Calcium Level 8.8 mg/dL (8.5-10.1) 7.2 mg/dL (8.5-10.1) Phosphorus Level 2.6 mg/dL (2.6-4.7) 2.9 mg/dL (2.6-4.7) Magnesium Level 1.6 mg/dL (1.8-2.4) 1.9 mg/dL (1.8-2.4) Total Bilirubin 1.0 mg/dL (0.2-1.0) Aspartate Amino Transf (AST/SGOT) 14 U/L (15-37) Alanine Aminotransferase (ALT/SGPT) 12 U/L (14-59) Alkaline Phosphatase 56 U/L (46-116) Total Protein 7.0 g/dL (6.4-8.2) Albumin 3.4 g/dL (3.4-5.0) Albumin/Globulin Ratio 0.9 (1.0-1.7) Urine Opiates Screen Pos (NEG) Urine Methadone Screen Neg (NEG) Urine Barbiturates Neg (NEG) Urine Phencyclidine Screen Neg (NEG) Urine Amphetamine/Methamphetamine Neg (NEG) Urine Benzodiazepines Screen Neg (NEG) Urine Cocaine Screen Neg (NEG) Urine Cannabinoids Screen Neg (NEG) Urine Ethyl Alcohol Neg (NEG) Test 09/14/20 13:04 09/14/20 13:08 09/14/20 14:30 09/15/20 08:30 SARS-CoV-2 Antigen (Rapid) Negative (NEGATIVE) Urine Test Negative (NEG) Lactic Acid Level 1.6 mmol/L (0.4-2.0) White Blood Count 20.5 x10^3/uL (4.0-11.0) Red Blood Count 3.36 x10^6/uL (3.50-5.40) Hemoglobin 10.9 g/dL (12.0-15.5) Hematocrit 32.9 % (36.0-47.0) Mean Corpuscular Volume 98 fL (79-100) Mean Corpuscular Hemoglobin 32 pg (25-35) Mean Corpuscular Hemoglobin Concent 33 g/dL (31-37) Red Cell Distribution Width 14.4 % (11.5-14.5) Platelet Count 181 x10^3/uL (140-400) Sodium Level 138 mmol/L (136-145) Potassium Level 3.7 mmol/L (3.5-5.1) Chloride Level 109 mmol/L (98-107) Carbon Dioxide Level 19 mmol/L (21-32) Anion Gap 10 (6-14) Blood Urea Nitrogen 25 mg/dL (7-20) Creatinine 1.1 mg/dL (0.6-1.0) Estimated GFR (Cockcroft-Gault) 53.7 BUN/Creatinine Ratio 23 (6-20) Glucose Level 119 mg/dL (70-99) Calcium Level 7.3 mg/dL (8.5-10.1) Total Bilirubin 0.4 mg/dL (0.2-1.0) Aspartate Amino Transf (AST/SGOT) 33 U/L (15-37) Alanine Aminotransferase (ALT/SGPT) 16 U/L (14-59) Alkaline Phosphatase 56 U/L (46-116) Total Protein 5.2 g/dL (6.4-8.2) Albumin 1.9 g/dL (3.4-5.0) Albumin/Globulin Ratio 0.6 (1.0-1.7) Laboratory Tests Test 09/14/20 09:30 09/14/20 10:13 09/14/20 13:04 09/14/20 13:08 Lactic Acid Level 2.3 mmol/L (0.4-2.0) Urine Opiates Screen Pos (NEG) Urine Methadone Screen Neg (NEG) Urine Barbiturates Neg (NEG) Urine Phencyclidine Screen Neg (NEG) Urine Amphetamine/Methamphetamine Neg (NEG) Urine Benzodiazepines Screen Neg (NEG) Urine Cocaine Screen Neg (NEG) Urine Cannabinoids Screen Neg (NEG) Urine Ethyl Alcohol Neg (NEG) SARS-CoV-2 Antigen (Rapid) Negative (NEGATIVE) Urine Test Negative (NEG) Test 09/14/20 14:30 09/15/20 08:30 Lactic Acid Level 1.6 mmol/L (0.4-2.0) White Blood Count 20.5 x10^3/uL (4.0-11.0) Red Blood Count 3.36 x10^6/uL (3.50-5.40) Hemoglobin 10.9 g/dL (12.0-15.5) Hematocrit 32.9 % (36.0-47.0) Mean Corpuscular Volume 98 fL (79-100) Mean Corpuscular Hemoglobin 32 pg (25-35) Mean Corpuscular Hemoglobin Concent 33 g/dL (31-37) Red Cell Distribution Width 14.4 % (11.5-14.5) Platelet Count 181 x10^3/uL (140-400) Sodium Level 138 mmol/L (136-145) Potassium Level 3.7 mmol/L (3.5-5.1) Chloride Level 109 mmol/L (98-107) Carbon Dioxide Level 19 mmol/L (21-32) Anion Gap 10 (6-14) Blood Urea Nitrogen 25 mg/dL (7-20) Creatinine 1.1 mg/dL (0.6-1.0) Estimated GFR (Cockcroft-Gault) 53.7 BUN/Creatinine Ratio 23 (6-20) Glucose Level 119 mg/dL (70-99) Calcium Level 7.3 mg/dL (8.5-10.1) Total Bilirubin 0.4 mg/dL (0.2-1.0) Aspartate Amino Transf (AST/SGOT) 33 U/L (15-37) Alanine Aminotransferase (ALT/SGPT) 16 U/L (14-59) Alkaline Phosphatase 56 U/L (46-116) Total Protein 5.2 g/dL (6.4-8.2) Albumin 1.9 g/dL (3.4-5.0) Albumin/Globulin Ratio 0.6 (1.0-1.7) Medications Current Medications Morphine Sulfate (Morphine Sulfate) 2 mg PRN Q2HR PRN IV SEVERE PAIN - 1ST CHOICE Last administered on 09/14/20at 18:27; Start 09/13/20 at 20:30 Sennosides (Senna) 17.2 mg PRN BID PRN PO CONSTIPATION; Start 09/13/20 at 21:00 Docusate Sodium (Colace) 100 mg PRN DAILY PRN PO HARD STOOLS; Start 09/13/20 at 21:00 Ondansetron HCl (Zofran) 4 mg PRN Q6HRS PRN IVP NAUSEA/VOMITING; Start 09/13/20 at 21:00 Dextrose (Dextrose 50%-Water Syringe) 12.5 gm PRN Q15MIN PRN IV SEE COMMENTS; Start 09/13/20 at 21:00 Sodium Chloride 1,000 ml @ 125 mls/hr Q8H IV Last administered on 09/15/20at 02:05; Start 09/13/20 at 21:00 Acetaminophen (Tylenol) 650 mg PRN Q4HRS PRN PO TEMP OVER 100.4F OR MILD PAIN; Start 09/13/20 at 21:00 Piperacillin Sod/ Tazobactam Sod 3.375 gm/Sodium Chloride 50 ml @ 100 mls/hr Q6HRS IV Last administered on 09/14/20at 12:31; Start 09/14/20 at 00:00; Stop 09/14/20 at 13:16; Status DC Pantoprazole Sodium (PROTONIX VIAL for IV PUSH) 40 mg BID IVP Last administered on 09/14/20at 10:18; Start 09/13/20 at 21:00; Stop 09/14/20 at 10:42; Status DC Morphine Sulfate (Morphine Sulfate) 1 mg PRN Q1HR PRN IV MODERATE PAIN- 1ST CHOICE; Start 09/13/20 at 21:00 Morphine Sulfate (Morphine Sulfate) 2 mg PRN Q2HR PRN IVP SEVERE PAIN 7-10; Start 09/13/20 at 21:00; Stop 09/14/20 at 01:58; Status DC Info (Non-Icu Electrolyte Protocol) 1 ea CONT PRN PRN MC PER PROTOCOL; Start 09/14/20 at 02:00; Status Cancel Magnesium Sulfate 50 ml @ 25 mls/hr 1X ONCE IV Last administered on 09/14/20at 04:14; Start 09/14/20 at 03:30; Stop 09/14/20 at 05:29; Status DC Dicyclomine HCl (Bentyl) 10 mg PRN QID PRN IM ABDOMINAL CRAMPS Last administered on 09/14/20at 04:15; Start 09/14/20 at 03:00 Sodium Chloride 1,000 ml @ 1,000 mls/hr 1X ONCE IV Last administered on 09/14/20at 04:15; Start 09/14/20 at 03:30; Stop 09/14/20 at 04:29; Status DC Sodium Chloride 1,000 ml @ 1,000 mls/hr 1X ONCE IV Last administered on 09/14at 04:15; Start 09/14/20 at 03:30; Stop 09/14/20 at 04:29; Status DC Sodium Chloride 500 ml @ 500 mls/hr 1X ONCE IV Last administered on 09/14/20at 06:15; Start 09/14/20 at 06:15; Stop 09/14/20 at 07:14; Status DC Sodium Chloride 500 ml @ 500 mls/hr 1X ONCE IV Last administered on 09/14/20at 07:15; Start 09/14/20 at 07:15; Stop 09/14/20 at 08:14; Status DC Pantoprazole Sodium 80 mg/ Sodium Chloride 100 ml @ 10 mls/hr Q10H IV Last administered on 09/15/20at 05:25; Start 09/14/20 at 11:30; Stop 09/17/20 at 11:29 Norepinephrine Bitartrate 8 mg/ Dextrose 258 ml @ 15.48 mls/ hr CONT PRN IV PER PROTOCOL Last administered on 09/15/20at 05:25; Start 09/14/20 at 11:15 Vasopressin 20 unit/Dextrose 101 ml @ 12 mls/hr CONT PRN IV SEE I/O RECORD; Start 09/14/20 at 11:15 Fentanyl Citrate (Fentanyl 2ml Vial) 25 mcg PRN Q5MIN PRN IVP MILD PAIN 1-3 Last administered on 09/14/20at 16:32; Start 09/14/20 at 12:00; Stop 09/14/20 at 20:14; Status DC Fentanyl Citrate (Fentanyl 2ml Vial) 50 mcg PRN Q5MIN PRN IVP MODERATE PAIN 4-6 Last administered on 09/14/20at 16:57; Start 09/14/20 at 12:00; Stop 09/14/20 at 20:14; Status DC Morphine Sulfate (Morphine Sulfate) 1 mg PRN Q10MIN PRN IVP SEVERE PAIN 7-10; Start 09/14/20 at 12:00; Stop 09/14/20 at 20:15; Status DC Ringer's Solution 1,000 ml @ 30 mls/hr Q24H IV Last administered on 09/14/20at 16:31; Start 09/14/20 at 12:00; Stop 09/14/20 at 20:15; Status DC Hydromorphone HCl (Dilaudid) 0.5 mg PRN Q10MIN PRN IVP SEVERE PAIN 7-10, 2nd CHOICE; Start 09/14/20 at 12:00; Stop 09/14/20 at 20:15; Status DC Prochlorperazine Edisylate (Compazine) 5 mg PACU PRN PRN IVP NAUSEA, MRX1 Last administered on 09/14/20at 16:32; Start 09/14/20 at 12:00; Stop 09/14/20 at 20:15; Status DC Info (Icu Electrolyte Protocol) 1 ea CONT PRN PRN MC SEE COMMENTS; Start 09/14/20 at 13:15 Ketamine HCl (Ketamine) 50 mg STK-MED ONCE .ROUTE ; Start 09/14/20 at 13:15; Stop 09/14/20 at 13:15; Status DC Succinylcholine Chloride (Anectine) 200 mg STK-MED ONCE .ROUTE ; Start 09/14/20 at 13:15; Stop 09/14/20 at 13:15; Status DC Rocuronium [place] (Zemuron) 50 mg STK-MED ONCE .ROUTE ; Start 09/14/20 at 13:15; Stop 09/14/20 at 13:15; Status DC Vasopressin (Vasostrict) 20 unit STK-MED ONCE .ROUTE ; Start 09/14/20 at 13:15; Stop 09/14/20 at 13:16; Status DC Midazolam HCl (Versed) 2 mg STK-MED ONCE .ROUTE ; Start 09/14/20 at 13:16; Stop 09/14/20 at 13:16; Status DC Piperacillin Sod/ Tazobactam Sod 2.25 gm/Sodium Chloride 50 ml @ 100 mls/hr Q6HRS IV Last administered on 09/15/20at 05:26; Start 09/14/20 at 18:00 Bupivacaine HCl/ Epinephrine Bitart (Sensorcaine-Epi 0.25%-1:623905 Mpf) 30 ml STK-MED ONCE .ROUTE Last administered on 09/14/20at 14:33; Start 09/14/20 at 13:38; Stop 09/14/20 at 13:39; Status DC Rocuronium [place] (Zemuron) 50 mg STK-MED ONCE .ROUTE ; Start 09/14/20 at 14:35; Stop 09/14/20 at 14:35; Status DC Sevoflurane (Ultane) 60 ml STK-MED ONCE IH ; Start 09/14/20 at 15:23; Stop 09/14/20 at 15:23; Status DC Neostigmine Methylsulfate (Bloxiverz) 10 mg STK-MED ONCE .ROUTE ; Start 09/14/20 at 15:29; Stop 09/14/20 at 15:29; Status DC Glycopyrrolate (Robinul) 1 mg STK-MED ONCE .ROUTE ; Start 09/14/20 at 15:29; Stop 09/14/20 at 15:29; Status DC Fentanyl Citrate (Fentanyl 2ml Vial) 100 mcg STK-MED ONCE .ROUTE ; Start 09/14/20 at 16:04; Stop 09/14/20 at 16:04; Status DC Phenylephrine HCl (PHENYLEPHRINE in 0.9% NACL PF) 1 mg STK-MED ONCE IV ; Start 09/14/20 at 16:05; Stop 09/14/20 at 16:05; Status DC Prochlorperazine Edisylate (Compazine) 10 mg STK-MED ONCE .ROUTE ; Start 09/14/20 at 16:06; Stop 09/14/20 at 16:06; Status DC Fentanyl Citrate (Fentanyl 2ml Vial) 100 mcg STK-MED ONCE .ROUTE ; Start 09/14/20 at 16:06; Stop 09/14/20 at 16:06; Status DC Fentanyl Citrate (Fentanyl 2ml Vial) 75 mcg PRN Q2HR PRN IVP SEVERE PAIN Last administered on 09/15/20at 08:24; Start 09/14/20 at 18:45 Fentanyl Citrate (Fentanyl 2ml Vial) 50 mcg PRN Q2HR PRN IVP MODERATE PAIN Last administered on 09/15/20at 05:54; Start 09/14/20 at 18:45 Active Scripts Active Reported Motrin Ib (Ibuprofen) 200 Mg Tablet 200 Mg PO PRN Q4-6HRS PRN Naproxen 500 Mg Tablet.dr 500 Mg PO 6XDAY Vitals/I & O Vital Sign - Last 24 Hours 09/14/20 09/14/20 09/14/20 09/14/20 11:15 11:30 11:45 12:00 Pulse 114 111 114 Resp 18 16 18 B/P (MAP) 100/59 (73) 70/46 (54) 80/54 (63) Pulse Ox 98 98 97 O2 Delivery Room Air Room Air Room Air Room Air 09/14/20 09/14/20 09/14/20 09/14/20 12:00 12:15 13:00 13:45 Temp 97.6 97.6 Pulse 111 114 108 111 Resp 20 16 18 16 B/P (MAP) 64/40 (48) 83/57 (66) 87/67 (74) 127/63 (84) Pulse Ox 97 98 97 98 O2 Delivery Room Air Room Air Room Air Room Air 09/14/20 09/14/20 09/14/20 09/14/20 14:00 15:00 15:44 15:44 Temp 97.9 97.9 Pulse 108 114 Resp 18 20 B/P (MAP) 85/60 (68) 93/66 Pulse Ox 97 94 O2 Delivery Room Air Room Air Simple Mask Mask O2 Flow Rate 10 10 09/14/20 09/14/20 09/14/20 09/14/20 15:59 16:00 16:00 16:11 Pulse 95 Resp 22 22 B/P (MAP) 92/62 Pulse Ox 93 90 O2 Delivery Simple Mask Room Air Room Air Simple Mask O2 Flow Rate 10 10.0 09/14/20 09/14/20 09/14/20 09/14/20 16:14 16:29 16:32 16:45 Pulse 85 98 86 Resp 24 22 22 22 B/P (MAP) 99/65 97/58 90/63 Pulse Ox 95 93 99 93 O2 Delivery Simple Mask Simple Mask Simple Mask Nasal Cannula O2 Flow Rate 10 10 10.0 2 09/14/20 09/14/20 09/14/20 09/14/20 16:50 16:57 17:00 17:00 Temp 98.0 98.0 Pulse 86 Resp 21 20 4 20 B/P (MAP) 90/60 Pulse Ox 95 94 92 93 O2 Delivery Nasal Cannula Nasal Cannula Nasal Cannula Simple Mask O2 Flow Rate 6.0 2.0 6.0 10 09/14/20 09/14/20 09/14/20 09/14/20 17:00 18:00 18:18 18:27 Temp 97.4 97.4 Pulse 91 92 Resp 20 25 B/P (MAP) 101/77 (85) 106/61 (76) Pulse Ox 93 91 91 97 O2 Delivery Nasal Cannula Nasal Cannula Room Air Nasal Cannula O2 Flow Rate 5.0 6.0 6.0 6.0 09/14/20 09/14/20 09/14/20 09/14/20 19:00 20:00 20:00 21:00 Temp 98.1 98.1 Pulse 88 94 90 Resp 24 26 B/P (MAP) 93/59 (70) 89/57 (68) 98/60 (73) Pulse Ox 100 97 98 O2 Delivery Room Air Room Air Room Air Room Air 09/14/20 09/14/20 09/14/20 09/14/20 21:22 21:52 22:00 23:00 Pulse 110 106 Resp 16 B/P (MAP) 117/66 (83) 90/55 (67) Pulse Ox 98 98 93 93 O2 Delivery Room Air Room Air Room Air Room Air 09/14/20 09/15/20 09/15/20 09/15/20 23:44 00:00 00:00 01:00 Temp 97.7 97.7 Pulse 94 96 Resp 23 16 B/P (MAP) 95/72 (80) 93/68 (76) Pulse Ox 95 95 94 O2 Delivery Room Air Room Air Room Air Room Air 09/15/20 09/15/20 09/15/20 09/15/20 02:00 03:00 03:52 04:00 Pulse 94 100 Resp 24 B/P (MAP) 91/64 (73) 109/71 (84) Pulse Ox 95 94 97 O2 Delivery Room Air Room Air Room Air Room Air 09/15/20 09/15/20 09/15/20 09/15/20 04:00 05:00 05:54 06:00 Temp 99.1 99.1 Pulse 94 88 92 Resp 16 24 B/P (MAP) 99/67 (78) 107/76 (86) 108/76 (87) Pulse Ox 93 96 95 O2 Delivery Room Air Room Air Room Air Room Air 09/15/20 08:24 Resp 30 Pulse Ox 97 O2 Delivery Room Air O2 Flow Rate 6.0 Intake and Output 7/16/21 7/16/21 7/17/21 15:00 23:00 07:00 Intake Total 0 ml 2150 ml 50 ml Output Total 100 ml 745 ml 375 ml Balance -100 ml 1405 ml -325 ml Justicifation of Admission Dx: Justifications for Admission: Justification of Admission Dx: Yes Sepsis: Hemodynamic Instability JHONY ENG MD Sep 15, 2020 09:20
[2020-09-15] MEDS ORDERED: NICOTINE 21MG PATCH. TD ONE (12:00)
[2020-09-15] MEDS: PIPERACILLIN/TAZOBACTAM 3.375 GM in IV NORMAL SALINE 50ML 50 ML IV SCH ×2 (12:00→17:56)
[2020-09-15] MEDS: NICOTINE 21MG PATCH. TD SCH (12:25)
--- NOTE | 2020-09-15 12:41 | PDOC ---
PROGRESS NOTES Date of Service DATE: 09/15/20 TIME: 12:40 Subjective Subjective bothered by NG Objective Objective Vital Signs Date Time Temp Pulse Resp B/P (MAP) Pulse Ox O2 Delivery O2 Flow Rate FiO2 09/15/20 12:00 Room Air 09/15/20 12:00 98.0 101 30 99/68 (78) 98 98.0 09/15/20 08:24 6.0 Intake and Output 09/15/20 07:00 Intake Total 3194 ml Output Total 1265 ml Balance 1929 ml Intake Oral 0 ml IV Total 3194 ml Output Urine Total 985 ml Drainage Total 275 ml Estimated Blood Loss 5 ml Physical Exam Abdomen: Soft (drain serosang) Assessment Assessment S/P repair gastric ulcer Plan Plan of Care postop care, cont NG tube Comment Review of Relevant I have reviewed the following items joel (where applicable) has been applied. Labs Laboratory Tests Test 09/13/20 21:15 09/14/20 07:25 09/14/20 09:30 09/14/20 10:13 White Blood Count 10.3 x10^3/uL (4.0-11.0) 9.9 x10^3/uL (4.0-11.0) Red Blood Count 4.65 x10^6/uL (3.50-5.40) 3.51 x10^6/uL (3.50-5.40) Hemoglobin 15.3 g/dL (12.0-15.5) 11.6 g/dL (12.0-15.5) Hematocrit 45.1 % (36.0-47.0) 34.7 % (36.0-47.0) Mean Corpuscular Volume 97 fL (79-100) 99 fL (79-100) Mean Corpuscular Hemoglobin 33 pg (25-35) 33 pg (25-35) Mean Corpuscular Hemoglobin Concent 34 g/dL (31-37) 33 g/dL (31-37) Red Cell Distribution Width 14.0 % (11.5-14.5) 14.2 % (11.5-14.5) Platelet Count 188 x10^3/uL (140-400) 148 x10^3/uL (140-400) Neutrophils (%) (Auto) 94 % (31-73) 92 % (31-73) Lymphocytes (%) (Auto) 2 % (24-48) 4 % (24-48) Monocytes (%) (Auto) 3 % (0-9) 4 % (0-9) Eosinophils (%) (Auto) 0 % (0-3) 0 % (0-3) Basophils (%) (Auto) 1 % (0-3) 0 % (0-3) Neutrophils # (Auto) 9.7 x10^3/uL (1.8-7.7) 9.0 x10^3/uL (1.8-7.7) Lymphocytes # (Auto) 0.2 x10^3/uL (1.0-4.8) 0.4 x10^3/uL (1.0-4.8) Monocytes # (Auto) 0.3 x10^3/uL (0.0-1.1) 0.4 x10^3/uL (0.0-1.1) Eosinophils # (Auto) 0.0 x10^3/uL (0.0-0.7) 0.0 x10^3/uL (0.0-0.7) Basophils # (Auto) 0.1 x10^3/uL (0.0-0.2) 0.0 x10^3/uL (0.0-0.2) Segmented Neutrophils % 64 % (35-66) Band Neutrophils % 30 % (0-9) Lymphocytes % 2 % (24-48) Monocytes % 4 % (0-10) Toxic Vacuolation Slight Platelet Estimate Adequate (ADEQUATE) Prothrombin Time 13.0 SEC (11.7-14.0) Prothromb Time International Ratio 1.0 (0.8-1.1) Sodium Level 132 mmol/L (136-145) 138 mmol/L (136-145) Potassium Level 3.9 mmol/L (3.5-5.1) 3.7 mmol/L (3.5-5.1) Chloride Level 98 mmol/L (98-107) 108 mmol/L (98-107) Carbon Dioxide Level 24 mmol/L (21-32) 19 mmol/L (21-32) Anion Gap 10 (6-14) 11 (6-14) Blood Urea Nitrogen 19 mg/dL (7-20) 24 mg/dL (7-20) Creatinine 1.5 mg/dL (0.6-1.0) 2.3 mg/dL (0.6-1.0) Estimated GFR (Cockcroft-Gault) 37.6 22.9 BUN/Creatinine Ratio 13 (6-20) Glucose Level 134 mg/dL (70-99) 109 mg/dL (70-99) Lactic Acid Level 1.8 mmol/L (0.4-2.0) 2.3 mmol/L (0.4-2.0) Calcium Level 8.8 mg/dL (8.5-10.1) 7.2 mg/dL (8.5-10.1) Phosphorus Level 2.6 mg/dL (2.6-4.7) 2.9 mg/dL (2.6-4.7) Magnesium Level 1.6 mg/dL (1.8-2.4) 1.9 mg/dL (1.8-2.4) Total Bilirubin 1.0 mg/dL (0.2-1.0) Aspartate Amino Transf (AST/SGOT) 14 U/L (15-37) Alanine Aminotransferase (ALT/SGPT) 12 U/L (14-59) Alkaline Phosphatase 56 U/L (46-116) Total Protein 7.0 g/dL (6.4-8.2) Albumin 3.4 g/dL (3.4-5.0) Albumin/Globulin Ratio 0.9 (1.0-1.7) Urine Opiates Screen Pos (NEG) Urine Methadone Screen Neg (NEG) Urine Barbiturates Neg (NEG) Urine Phencyclidine Screen Neg (NEG) Urine Amphetamine/Methamphetamine Neg (NEG) Urine Benzodiazepines Screen Neg (NEG) Urine Cocaine Screen Neg (NEG) Urine Cannabinoids Screen Neg (NEG) Urine Ethyl Alcohol Neg (NEG) Test 09/14/20 13:04 09/14/20 13:08 09/14/20 14:30 09/15/20 08:30 SARS-CoV-2 Antigen (Rapid) Negative (NEGATIVE) Urine Test Negative (NEG) Lactic Acid Level 1.6 mmol/L (0.4-2.0) White Blood Count 20.5 x10^3/uL (4.0-11.0) Red Blood Count 3.36 x10^6/uL (3.50-5.40) Hemoglobin 10.9 g/dL (12.0-15.5) Hematocrit 32.9 % (36.0-47.0) Mean Corpuscular Volume 98 fL (79-100) Mean Corpuscular Hemoglobin 32 pg (25-35) Mean Corpuscular Hemoglobin Concent 33 g/dL (31-37) Red Cell Distribution Width 14.4 % (11.5-14.5) Platelet Count 181 x10^3/uL (140-400) Sodium Level 138 mmol/L (136-145) Potassium Level 3.7 mmol/L (3.5-5.1) Chloride Level 109 mmol/L (98-107) Carbon Dioxide Level 19 mmol/L (21-32) Anion Gap 10 (6-14) Blood Urea Nitrogen 25 mg/dL (7-20) Creatinine 1.1 mg/dL (0.6-1.0) Estimated GFR (Cockcroft-Gault) 53.7 BUN/Creatinine Ratio 23 (6-20) Glucose Level 119 mg/dL (70-99) Calcium Level 7.3 mg/dL (8.5-10.1) Total Bilirubin 0.4 mg/dL (0.2-1.0) Aspartate Amino Transf (AST/SGOT) 33 U/L (15-37) Alanine Aminotransferase (ALT/SGPT) 16 U/L (14-59) Alkaline Phosphatase 56 U/L (46-116) Troponin I Quantitative 1.562 ng/mL (0.000-0.055) Total Protein 5.2 g/dL (6.4-8.2) Albumin 1.9 g/dL (3.4-5.0) Albumin/Globulin Ratio 0.6 (1.0-1.7) Laboratory Tests Test 09/14/20 13:04 09/14/20 13:08 09/14/20 14:30 09/15/20 08:30 SARS-CoV-2 Antigen (Rapid) Negative (NEGATIVE) Urine Test Negative (NEG) Lactic Acid Level 1.6 mmol/L (0.4-2.0) White Blood Count 20.5 x10^3/uL (4.0-11.0) Red Blood Count 3.36 x10^6/uL (3.50-5.40) Hemoglobin 10.9 g/dL (12.0-15.5) Hematocrit 32.9 % (36.0-47.0) Mean Corpuscular Volume 98 fL (79-100) Mean Corpuscular Hemoglobin 32 pg (25-35) Mean Corpuscular Hemoglobin Concent 33 g/dL (31-37) Red Cell Distribution Width 14.4 % (11.5-14.5) Platelet Count 181 x10^3/uL (140-400) Sodium Level 138 mmol/L (136-145) Potassium Level 3.7 mmol/L (3.5-5.1) Chloride Level 109 mmol/L (98-107) Carbon Dioxide Level 19 mmol/L (21-32) Anion Gap 10 (6-14) Blood Urea Nitrogen 25 mg/dL (7-20) Creatinine 1.1 mg/dL (0.6-1.0) Estimated GFR (Cockcroft-Gault) 53.7 BUN/Creatinine Ratio 23 (6-20) Glucose Level 119 mg/dL (70-99) Calcium Level 7.3 mg/dL (8.5-10.1) Total Bilirubin 0.4 mg/dL (0.2-1.0) Aspartate Amino Transf (AST/SGOT) 33 U/L (15-37) Alanine Aminotransferase (ALT/SGPT) 16 U/L (14-59) Alkaline Phosphatase 56 U/L (46-116) Troponin I Quantitative 1.562 ng/mL (0.000-0.055) Total Protein 5.2 g/dL (6.4-8.2) Albumin 1.9 g/dL (3.4-5.0) Albumin/Globulin Ratio 0.6 (1.0-1.7) Medications Current Medications Morphine Sulfate (Morphine Sulfate) 2 mg PRN Q2HR PRN IV SEVERE PAIN - 1ST CHOICE Last administered on 09/14/20at 18:27; Start 09/13/20 at 20:30 Sennosides (Senna) 17.2 mg PRN BID PRN PO CONSTIPATION; Start 09/13/20 at 21:00 Docusate Sodium (Colace) 100 mg PRN DAILY PRN PO HARD STOOLS; Start 09/13/20 at 21:00 Ondansetron HCl (Zofran) 4 mg PRN Q6HRS PRN IVP NAUSEA/VOMITING; Start 09/13/20 at 21:00 Dextrose (Dextrose 50%-Water Syringe) 12.5 gm PRN Q15MIN PRN IV SEE COMMENTS; Start 09/13/20 at 21:00 Sodium Chloride 1,000 ml @ 125 mls/hr Q8H IV Last administered on 09/15/20at 10:13; Start 09/13/20 at 21:00 Acetaminophen (Tylenol) 650 mg PRN Q4HRS PRN PO TEMP OVER 100.4F OR MILD PAIN; Start 09/13/20 at 21:00 Piperacillin Sod/ Tazobactam Sod 3.375 gm/Sodium Chloride 50 ml @ 100 mls/hr Q6HRS IV Last administered on 09/14/20at 12:31; Start 09/14/20 at 00:00; Stop 09/14/20 at 13:16; Status DC Pantoprazole Sodium (PROTONIX VIAL for IV PUSH) 40 mg BID IVP Last administered on 09/14/20at 10:18; Start 09/13/20 at 21:00; Stop 09/14/20 at 10:42; Status DC Morphine Sulfate (Morphine Sulfate) 1 mg PRN Q1HR PRN IV MODERATE PAIN- 1ST CHOICE; Start 09/13/20 at 21:00 Morphine Sulfate (Morphine Sulfate) 2 mg PRN Q2HR PRN IVP SEVERE PAIN 7-10; Start 09/13/20 at 21:00; Stop 09/14/20 at 01:58; Status DC Info (Non-Icu Electrolyte Protocol) 1 ea CONT PRN PRN MC PER PROTOCOL; Start 09/14/20 at 02:00; Status Cancel Magnesium Sulfate 50 ml @ 25 mls/hr 1X ONCE IV Last administered on 09/14/20at 04:14; Start 09/14/20 at 03:30; Stop 09/14/20 at 05:29; Status DC Dicyclomine HCl (Bentyl) 10 mg PRN QID PRN IM ABDOMINAL CRAMPS Last administered on 09/14/20at 04:15; Start 09/14/20 at 03:00 Sodium Chloride 1,000 ml @ 1,000 mls/hr 1X ONCE IV Last administered on 09/14/20at 04:15; Start 09/14/20 at 03:30; Stop 09/14/20 at 04:29; Status DC Sodium Chloride 1,000 ml @ 1,000 mls/hr 1X ONCE IV Last administered on 09/14/20at 04:15; Start 09/14/20 at 03:30; Stop 09/14/20 at 04:29; Status DC Sodium Chloride 500 ml @ 500 mls/hr 1X ONCE IV Last administered on 09/14/20at 06:15; Start 09/14/20 at 06:15; Stop 09/14/20 at 07:14; Status DC Sodium Chloride 500 ml @ 500 mls/hr 1X ONCE IV Last administered on 09/14/20at 07:15; Start 09/14/20 at 07:15; Stop 09/14/20 at 08:14; Status DC Pantoprazole Sodium 80 mg/ Sodium Chloride 100 ml @ 10 mls/hr Q10H IV Last administered on 09/15/20at 05:25; Start 09/14/20 at 11:30; Stop 09/17/20 at 11:29 Norepinephrine Bitartrate 8 mg/ Dextrose 258 ml @ 15.48 mls/ hr CONT PRN IV PER PROTOCOL Last administered on 09/15/20at 05:25; Start 09/14/20 at 11:15 Vasopressin 20 unit/Dextrose 101 ml @ 12 mls/hr CONT PRN IV SEE I/O RECORD; Start 09/14/20 at 11:15 Fentanyl Citrate (Fentanyl 2ml Vial) 25 mcg PRN Q5MIN PRN IVP MILD PAIN 1-3 Last administered on 09/14/20at 16:32; Start 09/14/20 at 12:00; Stop 09/14/20 at 20:14; Status DC Fentanyl Citrate (Fentanyl 2ml Vial) 50 mcg PRN Q5MIN PRN IVP MODERATE PAIN 4-6 Last administered on 09/14/20at 16:57; Start 09/14/20 at 12:00; Stop 09/14/20 at 20:14; Status DC Morphine Sulfate (Morphine Sulfate) 1 mg PRN Q10MIN PRN IVP SEVERE PAIN 7-10; Start 09/14/20 at 12:00; Stop 09/14/20 at 20:15; Status DC Ringer's Solution 1,000 ml @ 30 mls/hr Q24H IV Last administered on 09/14/20at 16:31; Start 09/14/20 at 12:00; Stop 09/14/20 at 20:15; Status DC Hydromorphone HCl (Dilaudid) 0.5 mg PRN Q10MIN PRN IVP SEVERE PAIN 7-10, 2nd CHOICE; Start 09/14/20 at 12:00; Stop 09/14/20 at 20:15; Status DC Prochlorperazine Edisylate (Compazine) 5 mg PACU PRN PRN IVP NAUSEA, MRX1 Last administered on 09/14/20at 16:32; Start 09/14/20 at 12:00; Stop 09/14/20 at 20:15; Status DC Info (Icu Electrolyte Protocol) 1 ea CONT PRN PRN MC SEE COMMENTS; Start 09/14/20 at 13:15 Ketamine HCl (Ketamine) 50 mg STK-MED ONCE .ROUTE ; Start 09/14/20 at 13:15; Stop 09/14/20 at 13:15; Status DC Succinylcholine Chloride (Anectine) 200 mg STK-MED ONCE .ROUTE ; Start 09/14/20 at 13:15; Stop 09/14/20 at 13:15; Status DC Rocuronium [place] (Zemuron) 50 mg STK-MED ONCE .ROUTE ; Start 09/14/20 at 13:15; Stop 09/14/20 at 13:15; Status DC Vasopressin (Vasostrict) 20 unit STK-MED ONCE .ROUTE ; Start 09/14/20 at 13:15; Stop 09/14/20 at 13:16; Status DC Midazolam HCl (Versed) 2 mg STK-MED ONCE .ROUTE ; Start 09/14/20 at 13:16; Stop 09/14/20 at 13:16; Status DC Piperacillin Sod/ Tazobactam Sod 2.25 gm/Sodium Chloride 50 ml @ 100 mls/hr Q6HRS IV Last administered on 09/15/20at 11:54; Start 09/14/20 at 18:00; Stop 09/15/20 at 11:59; Status DC Bupivacaine HCl/ Epinephrine Bitart (Sensorcaine-Epi 0.25%-1:141980 Mpf) 30 ml STK-MED ONCE .ROUTE Last administered on 09/14/20at 14:33; Start 09/14/20 at 13:38; Stop 09/14/20 at 13:39; Status DC Rocuronium [place] (Zemuron) 50 mg STK-MED ONCE .ROUTE ; Start 09/14/20 at 14:35; Stop 09/14/20 at 14:35; Status DC Sevoflurane (Ultane) 60 ml STK-MED ONCE IH ; Start 09/14/20 at 15:23; Stop 09/14/20 at 15:23; Status DC Neostigmine Methylsulfate (Bloxiverz) 10 mg STK-MED ONCE .ROUTE ; Start 09/14/20 at 15:29; Stop 09/14/20 at 15:29; Status DC Glycopyrrolate (Robinul) 1 mg STK-MED ONCE .ROUTE ; Start 09/14/20 at 15:29; Stop 09/14/20 at 15:29; Status DC Fentanyl Citrate (Fentanyl 2ml Vial) 100 mcg STK-MED ONCE .ROUTE ; Start 09/14/20 at 16:04; Stop 09/14/20 at 16:04; Status DC Phenylephrine HCl (PHENYLEPHRINE in 0.9% NACL PF) 1 mg STK-MED ONCE IV ; Start 09/14/20 at 16:05; Stop 09/14/20 at 16:05; Status DC Prochlorperazine Edisylate (Compazine) 10 mg STK-MED ONCE .ROUTE ; Start 09/14/20 at 16:06; Stop 09/14/20 at 16:06; Status DC Fentanyl Citrate (Fentanyl 2ml Vial) 100 mcg STK-MED ONCE .ROUTE ; Start 09/14/20 at 16:06; Stop 09/14/20 at 16:06; Status DC Fentanyl Citrate (Fentanyl 2ml Vial) 75 mcg PRN Q2HR PRN IVP SEVERE PAIN Last administered on 09/15/20at 10:36; Start 09/14/20 at 18:45 Fentanyl Citrate (Fentanyl 2ml Vial) 50 mcg PRN Q2HR PRN IVP MODERATE PAIN Last administered on 09/15/20at 05:54; Start 09/14/20 at 18:45 Nicotine (Nicoderm Cq 21mg) 1 patch DAILY TD Last administered on 09/15/20at 12:25; Start 09/15/20 at 12:00 Nicotine (Nicoderm Cq 21mg) 1 patch 1X ONCE TD ; Start 09/15/20 at 12:00; Stop 09/15/20 at 12:01; Status UNV Piperacillin Sod/ Tazobactam Sod 3.375 gm/Sodium Chloride 50 ml @ 100 mls/hr Q6HRS IV ; Start 09/15/20 at 12:00 Active Scripts Active Reported Motrin Ib (Ibuprofen) 200 Mg Tablet 200 Mg PO PRN Q4-6HRS PRN Naproxen 500 Mg Tablet.dr 500 Mg PO 6XDAY Vitals/I & O Vital Sign - Last 24 Hours 09/14/20 09/14/20 09/14/20 09/14/20 13:00 13:45 14:00 15:00 Pulse 108 111 108 Resp 18 16 18 B/P (MAP) 87/67 (74) 127/63 (84) 85/60 (68) Pulse Ox 97 98 97 O2 Delivery Room Air Room Air Room Air Room Air 09/14/20 09/14/20 09/14/20 09/14/20 15:44 15:44 15:59 16:00 Temp 97.9 97.9 Pulse 114 95 Resp 20 22 B/P (MAP) 93/66 92/62 Pulse Ox 94 93 O2 Delivery Simple Mask Mask Simple Mask Room Air O2 Flow Rate 10 10 10 09/14/20 09/14/20 09/14/20 09/14/20 16:00 16:11 16:14 16:29 Pulse 85 98 Resp 22 22 B/P (MAP) 99/65 97/58 Pulse Ox 90 95 93 O2 Delivery Room Air Simple Mask Simple Mask Simple Mask O2 Flow Rate 10.0 10 10 09/14/20 09/14/20 09/14/20 09/14/20 16:32 16:45 16:50 16:57 Pulse 86 Resp 22 22 21 20 B/P (MAP) 90/63 Pulse Ox 99 93 95 94 O2 Delivery Simple Mask Nasal Cannula Nasal Cannula Nasal Cannula O2 Flow Rate 10.0 2 6.0 2.0 09/14/20 09/14/20 09/14/20 09/14/20 17:00 17:00 17:00 18:00 Temp 98.0 97.4 98.0 97.4 Pulse 86 91 92 Resp 4 20 B/P (MAP) 90/60 101/77 (85) 106/61 (76) Pulse Ox 92 93 93 91 O2 Delivery Nasal Cannula Simple Mask Nasal Cannula Nasal Cannula O2 Flow Rate 6.0 10 5.0 6.0 09/14/20 09/14/20 09/14/20 09/14/20 18:18 18:27 19:00 20:00 Pulse 88 Resp 21 B/P (MAP) 93/59 (70) Pulse Ox 91 97 100 O2 Delivery Room Air Nasal Cannula Room Air Room Air O2 Flow Rate 6.0 6.0 09/14/20 09/14/20 09/14/20 09/14/20 20:00 21:00 21:22 21:52 Temp 98.1 98.1 Pulse 94 90 Resp 19 B/P (MAP) 89/57 (68) 98/60 (73) Pulse Ox 97 98 98 98 O2 Delivery Room Air Room Air Room Air Room Air 09/14/20 09/14/20 09/14/20 09/15/20 22:00 23:00 23:44 00:00 Temp 97.7 97.7 Pulse 110 106 94 Resp 23 B/P (MAP) 117/66 (83) 90/55 (67) 95/72 (80) Pulse Ox 93 93 95 95 O2 Delivery Room Air Room Air Room Air Room Air 09/15/20 09/15/20 09/15/20 09/15/20 00:00 01:00 02:00 03:00 Pulse 96 94 100 Resp 16 19 B/P (MAP) 93/68 (76) 91/64 (73) 109/71 (84) Pulse Ox 94 95 94 O2 Delivery Room Air Room Air Room Air Room Air 09/15/20 09/15/20 09/15/20 09/15/20 03:52 04:00 04:00 05:00 Temp 99.1 99.1 Pulse 94 88 Resp 24 16 16 B/P (MAP) 99/67 (78) 107/76 (86) Pulse Ox 97 93 96 O2 Delivery Room Air Room Air Room Air Room Air 09/15/20 09/15/20 09/15/20 09/15/20 05:54 06:00 07:00 08:00 Pulse 92 90 Resp 22 B/P (MAP) 108/76 (87) 120/85 (97) Pulse Ox 95 96 O2 Delivery Room Air Room Air Room Air Room Air 09/15/20 09/15/20 09/15/20 09/15/20 08:00 08:24 08:54 09:00 Temp 97.8 97.8 Pulse 114 93 Resp 22 30 18 25 B/P (MAP) 119/83 (95) 105/77 (86) Pulse Ox 97 97 100 95 O2 Delivery Room Air Room Air Room Air Room Air O2 Flow Rate 6.0 09/15/20 09/15/20 09/15/20 09/15/20 10:00 10:36 11:00 11:06 Pulse 95 101 Resp 24 30 22 18 B/P (MAP) 118/85 (96) 93/70 (78) Pulse Ox 97 96 94 100 O2 Delivery Room Air Room Air Room Air Room Air 09/15/20 09/15/20 12:00 12:00 Temp 98.0 98.0 Pulse 101 Resp 30 B/P (MAP) 99/68 (78) Pulse Ox 98 O2 Delivery Room Air Room Air Intake and Output 09/14/20 09/14/20 09/15/20 15:00 23:00 07:00 Intake Total 0 ml 2150 ml 1044 ml Output Total 100 ml 745 ml 420 ml Balance -100 ml 1405 ml 624 ml Justifications for Admission Other Justification Abdominal pain due to perforated gastric ulcer RACHAEL BOYD MD Sep 15, 2020 12:41
--- NOTE | 2020-09-15 13:11 | CONS ---
DATE OF CONSULTATION: 09/15/2020 REFERRING PHYSICIAN: Rogelio Guevara MD REASON FOR CONSULTATION: Sepsis, antibiotic management. HISTORY OF PRESENT ILLNESS: A 45-year-old female who presented to [facility] with complaints of epigastric pain. Two weeks prior to admission, the patient developed nausea and vomiting. She started vomiting blood. CT of the abdomen showed abnormal thickening of the stomach consistent with gastritis as well as small extraluminal air perigastric concerning for gastric ulcer perforation. The patient underwent robotic-assisted laparoscopic repair of the gastric ulcer and French patch on 09/14/2020. The patient had BARBARA, hyponatremia on admission, which is currently resolved. White count is elevated at 20.5 today, hemoglobin is 10.9, was 15.3. Urine test was negative. UDS was only positive for opiates. SARS-COVID was negative. ID consultation was requested for antibiotic management. Today, the patient states her pain is under control. Denies any nausea, vomiting, fevers, chills, or symptoms. PAST MEDICAL HISTORY: Psoriasis. PAST SURGICAL HISTORY: None. ALLERGIES: None. SOCIAL HISTORY: Continues to smoke. ETOH social. CURRENT MEDICATIONS: Zosyn. Other medications reviewed in medication list. REVIEW OF SYSTEMS: Negative except for above in HPI. PHYSICAL EXAMINATION: VITAL SIGNS: Temperature 97.8, pulse 101, respiratory rate 22, blood pressure 93/70, oxygen saturation 100% on room air. GENERAL: Alert, oriented x 3 female sitting upright in chair in ICU, in no acute distress. HEENT: Normocephalic, atraumatic. Anicteric. NG tube in place. NECK: Supple, no lymphadenopathy. LUNGS: Clear bilaterally. No wheezing. HEART: S1, S2. No gallops or murmurs. ABDOMEN: Soft. Laparoscopic dressing intact, dry, not taken down. Drain in place. Mild tenderness to palpation in the upper quadrant. No rebound or guarding. EXTREMITIES: No edema, no cyanosis. DERMATOLOGIC: Warm, dry, no generalized rash. NEUROLOGIC: Alert, oriented x 3, grossly nonfocal. PSYCHIATRIC: Calm and cooperative. LABORATORY DATA: WBC 20.5, hemoglobin 10.9, hematocrit 32.9, platelets 181. Sodium 138, potassium 3.7, chloride 109, bicarb 19, BUN 25, creatinine 1.1, glucose 119. Troponin 1.562. Albumin 1.9. UA none. Urine test negative. SARS-COVID negative. UDS noted. IMAGING: KUB and chest x-ray noted. IMPRESSION: 1. Septic shock from perforated viscus. 2. Acute abdominal pain due to perforated gastric ulcer. 3. Status post robotic-assisted laparoscopic repair of gastric ulcer and French patch on 09/14/2020. 4. Leukocytosis, likely reactive.Recent postoperative pt 5. Anemia, acute blood loss. 6. History of tobaccoism. 7. BARBARA with hyponatremia, resolved. 8. Protein-calorie malnutrition. RECOMMENDATIONS: 1. Change Zosyn to 3.375 q. 6 hours as renal function has improved. 2. Drain and wound care as directed. 3. Follow up labs and cultures. 4. Continue supportive care. 5. Maintain aspiration precaution. Thank you, Dr. Guevara, for consulting Infectious Disease to participate in this patient's care. If you have any questions, do not hesitate to contact me. Discussed with nursing staff. CCT: 35 minutes. GILMAR/JIM/JEFF DR: Andre TID: [id number] MTDD
--- NOTE | 2020-09-15 15:07 | RAD ---
EXAM: XR CHEST 1V 09/15/2020 11:52 AM CLINICAL INDICATION: Atelectasis COMPARISON: Chest radiograph 09/14/2020 TECHNIQUE: AP view of the chest FINDINGS: The right IJ central venous catheter is unchanged with tip at the superior cavoatrial junc tion. Nasogastric tube has been advanced and terminates in the gastric body. An additional drain proj ects over the left upper quadrant. The heart is enlarged, unchanged. There is mediastinal and hilar f ullness, unchanged. Small left pleural effusion and basilar opacities are unchanged. There are calcif ied granulomas in the lungs. No pneumothorax. Old left clavicle fracture is unchanged. IMPRESSION: 1. Unchanged fullness of the mediastinum and left hilum. This could be due to mediastinal lymphadenop athy, mediastinal mass, or enlargement/tortuosity of the aorta. Considered CT of the chest to further evaluate if indicated. 2. Unchanged small left pleural effusion and basilar opacities. Electronically signed by: Tamie Johnson MD (09/15/2020 3:05 PM) [id number]
--- NOTE | 2020-09-15 15:16 | EKG ---
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
[2020-09-16] VITALS (8 sets, daily range): BP systolic 122–161; BP diastolic 67–106
[2020-09-16] MEDS: PIPERACILLIN/TAZOBACTAM 3.375 GM in IV NORMAL SALINE 50ML 50 ML IV SCH ×4 (00:11→18:11)
[2020-09-16] MEDS: PANTOPRAZOLE SODIUM IV DRIP 80 MG in IV NORMAL SALINE 100ML 100 ML IV SCH ×2 (02:05→11:47)
[2020-09-16] MEDS: fentaNYL PF VIAL 100 MCG/2 ML VIAL IVP PRN ×8 (02:05→22:37)
[2020-09-16] MEDS: IV NORMAL SALINE 1000ML BAG 1,000 ML IV SCH ×3 (02:38→19:59)
[2020-09-16 06:19] LABS: BASO % 0 % (0-3); EOS # 0.1 x10^3/uL (0.0-0.7); EOS % 0 % (0-3); HEMATOCRIT 30.4 % (36.0-47.0); HEMOGLOBIN 9.8 g/dL (12.0-15.5); LYMPH # 0.4 x10^3/uL (1.0-4.8); LYMPH % 2 % (24-48); MEAN CORPUSCULAR HEMOGLOBIN 32 pg (25-35); MEAN CORPUSCULAR HGB CONC 32 g/dL (31-37); MEAN CORPUSCULAR VOLUME 98 fL (79-100); MONO # 0.7 x10^3/uL (0.0-1.1); MONO % 4 % (0-9); NEUT % 93 % (31-73); PLATELET COUNT 154 x10^3/uL (140-400); RED CELL DISTRIBUTION WIDTH 14.7 % (11.5-14.5); WHITE BLOOD COUNT 18.2 x10^3/uL (4.0-11.0)
[2020-09-16 06:35] LABS: ALBUMIN 1.7 g/dL (3.4-5.0); ALBUMIN/GLOBULIN RATIO 0.7 (1.0-1.7); CALCIUM 7.2 mg/dL (8.5-10.1); CREATININE 0.8 mg/dL (0.6-1.0); GFR 77.6; POTASSIUM 3.3 mmol/L (3.5-5.1); TOTAL BILIRUBIN 0.4 mg/dL (0.2-1.0); TOTAL PROTEIN 4.2 g/dL (6.4-8.2)
[2020-09-16] MEDS: POTASSIUM CHLORIDE 20MEQ 100 ML IV SCH ×2 (07:36→09:43)
--- NOTE | 2020-09-16 07:40 | PDOC ---
Infectious Disease Note Subjective: Subjective Patient feels better Had a bowel movement Has been passing gas Denies any fever, nausea, vomiting, shortness of breath or cough Vital Signs: Vital Signs Vital Signs Date Time Temp Pulse Resp B/P (MAP) Pulse Ox O2 Delivery O2 Flow Rate FiO2 09/16/20 04:15 98.0 98 24 136/96 (109) 99 Room Air 98.0 09/15/20 08:24 6.0 Physical Exam: PHYSICAL EXAM GENERAL: Alert, oriented x 3 female lying in bed in no acute distress. HEENT: Normocephalic, atraumatic. Anicteric. NG tube in place. Poor dentition NECK: Supple, no lymphadenopathy. LUNGS: Clear bilaterally. No wheezing. HEART: S1, S2. No gallops or murmurs. ABDOMEN: Soft. Laparoscopic dressing intact, dry, not taken down. Drain in place. Mild tenderness to palpation in the upper quadrant. No rebound or guarding. EXTREMITIES: No edema, no cyanosis. DERMATOLOGIC: Warm, dry, no generalized rash. NEUROLOGIC: Alert, oriented x 3, grossly nonfocal. PSYCHIATRIC: Calm and cooperative. Medications: Inpatient Meds: Medications reviewed. Labs: Lab Laboratory Tests Test 09/15/20 08:30 09/15/20 18:00 09/16/20 06:00 White Blood Count 20.5 x10^3/uL (4.0-11.0) 18.2 x10^3/uL (4.0-11.0) Red Blood Count 3.36 x10^6/uL (3.50-5.40) 3.10 x10^6/uL (3.50-5.40) Hemoglobin 10.9 g/dL (12.0-15.5) 9.8 g/dL (12.0-15.5) Hematocrit 32.9 % (36.0-47.0) 30.4 % (36.0-47.0) Mean Corpuscular Volume 98 fL (79-100) 98 fL (79-100) Mean Corpuscular Hemoglobin 32 pg (25-35) 32 pg (25-35) Mean Corpuscular Hemoglobin Concent 33 g/dL (31-37) 32 g/dL (31-37) Red Cell Distribution Width 14.4 % (11.5-14.5) 14.7 % (11.5-14.5) Platelet Count 181 x10^3/uL (140-400) 154 x10^3/uL (140-400) Sodium Level 138 mmol/L (136-145) 139 mmol/L (136-145) Potassium Level 3.7 mmol/L (3.5-5.1) 3.3 mmol/L (3.5-5.1) Chloride Level 109 mmol/L (98-107) 108 mmol/L (98-107) Carbon Dioxide Level 19 mmol/L (21-32) 18 mmol/L (21-32) Anion Gap 10 (6-14) 13 (6-14) Blood Urea Nitrogen 25 mg/dL (7-20) 19 mg/dL (7-20) Creatinine 1.1 mg/dL (0.6-1.0) 0.8 mg/dL (0.6-1.0) Estimated GFR (Cockcroft-Gault) 53.7 77.6 BUN/Creatinine Ratio 23 (6-20) 24 (6-20) Glucose Level 119 mg/dL (70-99) 63 mg/dL (70-99) Calcium Level 7.3 mg/dL (8.5-10.1) 7.2 mg/dL (8.5-10.1) Total Bilirubin 0.4 mg/dL (0.2-1.0) 0.4 mg/dL (0.2-1.0) Aspartate Amino Transf (AST/SGOT) 33 U/L (15-37) 16 U/L (15-37) Alanine Aminotransferase (ALT/SGPT) 16 U/L (14-59) 14 U/L (14-59) Alkaline Phosphatase 56 U/L (46-116) 61 U/L (46-116) Troponin I Quantitative 1.562 ng/mL (0.000-0.055) 0.703 ng/mL (0.000-0.055) 0.284 ng/mL (0.000-0.055) Total Protein 5.2 g/dL (6.4-8.2) 4.2 g/dL (6.4-8.2) Albumin 1.9 g/dL (3.4-5.0) 1.7 g/dL (3.4-5.0) Albumin/Globulin Ratio 0.6 (1.0-1.7) 0.7 (1.0-1.7) Neutrophils (%) (Auto) 93 % (31-73) Lymphocytes (%) (Auto) 2 % (24-48) Monocytes (%) (Auto) 4 % (0-9) Eosinophils (%) (Auto) 0 % (0-3) Basophils (%) (Auto) 0 % (0-3) Neutrophils # (Auto) 17.0 x10^3/uL (1.8-7.7) Lymphocytes # (Auto) 0.4 x10^3/uL (1.0-4.8) Monocytes # (Auto) 0.7 x10^3/uL (0.0-1.1) Eosinophils # (Auto) 0.1 x10^3/uL (0.0-0.7) Basophils # (Auto) 0.0 x10^3/uL (0.0-0.2) Objective: Assessment: 1. Septic shock from perforated viscus. 2. Acute abdominal pain due to perforated gastric ulcer. 3. Status post robotic-assisted laparoscopic repair of gastric ulcer and French patch on 09/14/2020. 4. Leukocytosis, likely reactive. 5. Anemia, acute blood loss. 6. History of tobaccoism. 7. BARBARA with hyponatremia, resolved. 8. Protein-calorie malnutrition. Plan: Plan of Care : cont Zosyn Drain and wound care as directed. Follow up labs and cultures. Continue supportive care. Maintain aspiration precaution. DARYN SHEPPARD MD Sep 16, 2020 07:39
[2020-09-16] MEDS: NICOTINE 21MG PATCH. TD SCH (09:42)
--- NOTE | 2020-09-16 10:19 | PDOC ---
PROGRESS NOTES Date of Service DATE: 09/16/20 TIME: 10:18 Subjective Subjective improving Objective Objective Vital Signs Date Time Temp Pulse Resp B/P (MAP) Pulse Ox O2 Delivery O2 Flow Rate FiO2 09/16/20 08:06 23 100 Room Air 09/16/20 08:00 97.8 97 137/93 (108) 97.8 09/15/20 08:24 6.0 Intake and Output 09/16/20 07:00 Intake Total 2166 ml Output Total 2035 ml Balance 131 ml Intake Oral 350 ml IV Total 1816 ml Output Urine Total 1075 ml Gastric Drainage Total 900 ml Drainage Total 60 ml Physical Exam Abdomen: Soft (STONE serosang) Assessment Assessment S/P repair gastric perforation Plan Plan of Care Rob Peraza in 1 more day Comment Review of Relevant I have reviewed the following items joel (where applicable) has been applied. Labs Laboratory Tests Test 09/14/20 13:04 09/14/20 13:08 09/14/20 14:30 09/15/20 08:30 SARS-CoV-2 Antigen (Rapid) Negative (NEGATIVE) Urine Test Negative (NEG) Lactic Acid Level 1.6 mmol/L (0.4-2.0) White Blood Count 20.5 x10^3/uL (4.0-11.0) Red Blood Count 3.36 x10^6/uL (3.50-5.40) Hemoglobin 10.9 g/dL (12.0-15.5) Hematocrit 32.9 % (36.0-47.0) Mean Corpuscular Volume 98 fL (79-100) Mean Corpuscular Hemoglobin 32 pg (25-35) Mean Corpuscular Hemoglobin Concent 33 g/dL (31-37) Red Cell Distribution Width 14.4 % (11.5-14.5) Platelet Count 181 x10^3/uL (140-400) Sodium Level 138 mmol/L (136-145) Potassium Level 3.7 mmol/L (3.5-5.1) Chloride Level 109 mmol/L (98-107) Carbon Dioxide Level 19 mmol/L (21-32) Anion Gap 10 (6-14) Blood Urea Nitrogen 25 mg/dL (7-20) Creatinine 1.1 mg/dL (0.6-1.0) Estimated GFR (Cockcroft-Gault) 53.7 BUN/Creatinine Ratio 23 (6-20) Glucose Level 119 mg/dL (70-99) Calcium Level 7.3 mg/dL (8.5-10.1) Total Bilirubin 0.4 mg/dL (0.2-1.0) Aspartate Amino Transf (AST/SGOT) 33 U/L (15-37) Alanine Aminotransferase (ALT/SGPT) 16 U/L (14-59) Alkaline Phosphatase 56 U/L (46-116) Troponin I Quantitative 1.562 ng/mL (0.000-0.055) Total Protein 5.2 g/dL (6.4-8.2) Albumin 1.9 g/dL (3.4-5.0) Albumin/Globulin Ratio 0.6 (1.0-1.7) Test 09/15/20 18:00 09/16/20 06:00 Troponin I Quantitative 0.703 ng/mL (0.000-0.055) 0.284 ng/mL (0.000-0.055) White Blood Count 18.2 x10^3/uL (4.0-11.0) Red Blood Count 3.10 x10^6/uL (3.50-5.40) Hemoglobin 9.8 g/dL (12.0-15.5) Hematocrit 30.4 % (36.0-47.0) Mean Corpuscular Volume 98 fL (79-100) Mean Corpuscular Hemoglobin 32 pg (25-35) Mean Corpuscular Hemoglobin Concent 32 g/dL (31-37) Red Cell Distribution Width 14.7 % (11.5-14.5) Platelet Count 154 x10^3/uL (140-400) Neutrophils (%) (Auto) 93 % (31-73) Lymphocytes (%) (Auto) 2 % (24-48) Monocytes (%) (Auto) 4 % (0-9) Eosinophils (%) (Auto) 0 % (0-3) Basophils (%) (Auto) 0 % (0-3) Neutrophils # (Auto) 17.0 x10^3/uL (1.8-7.7) Lymphocytes # (Auto) 0.4 x10^3/uL (1.0-4.8) Monocytes # (Auto) 0.7 x10^3/uL (0.0-1.1) Eosinophils # (Auto) 0.1 x10^3/uL (0.0-0.7) Basophils # (Auto) 0.0 x10^3/uL (0.0-0.2) Sodium Level 139 mmol/L (136-145) Potassium Level 3.3 mmol/L (3.5-5.1) Chloride Level 108 mmol/L (98-107) Carbon Dioxide Level 18 mmol/L (21-32) Anion Gap 13 (6-14) Blood Urea Nitrogen 19 mg/dL (7-20) Creatinine 0.8 mg/dL (0.6-1.0) Estimated GFR (Cockcroft-Gault) 77.6 BUN/Creatinine Ratio 24 (6-20) Glucose Level 63 mg/dL (70-99) Calcium Level 7.2 mg/dL (8.5-10.1) Total Bilirubin 0.4 mg/dL (0.2-1.0) Aspartate Amino Transf (AST/SGOT) 16 U/L (15-37) Alanine Aminotransferase (ALT/SGPT) 14 U/L (14-59) Alkaline Phosphatase 61 U/L (46-116) Total Protein 4.2 g/dL (6.4-8.2) Albumin 1.7 g/dL (3.4-5.0) Albumin/Globulin Ratio 0.7 (1.0-1.7) Laboratory Tests Test 09/15/20 18:00 09/16/20 06:00 Troponin I Quantitative 0.703 ng/mL (0.000-0.055) 0.284 ng/mL (0.000-0.055) White Blood Count 18.2 x10^3/uL (4.0-11.0) Red Blood Count 3.10 x10^6/uL (3.50-5.40) Hemoglobin 9.8 g/dL (12.0-15.5) Hematocrit 30.4 % (36.0-47.0) Mean Corpuscular Volume 98 fL (79-100) Mean Corpuscular Hemoglobin 32 pg (25-35) Mean Corpuscular Hemoglobin Concent 32 g/dL (31-37) Red Cell Distribution Width 14.7 % (11.5-14.5) Platelet Count 154 x10^3/uL (140-400) Neutrophils (%) (Auto) 93 % (31-73) Lymphocytes (%) (Auto) 2 % (24-48) Monocytes (%) (Auto) 4 % (0-9) Eosinophils (%) (Auto) 0 % (0-3) Basophils (%) (Auto) 0 % (0-3) Neutrophils # (Auto) 17.0 x10^3/uL (1.8-7.7) Lymphocytes # (Auto) 0.4 x10^3/uL (1.0-4.8) Monocytes # (Auto) 0.7 x10^3/uL (0.0-1.1) Eosinophils # (Auto) 0.1 x10^3/uL (0.0-0.7) Basophils # (Auto) 0.0 x10^3/uL (0.0-0.2) Sodium Level 139 mmol/L (136-145) Potassium Level 3.3 mmol/L (3.5-5.1) Chloride Level 108 mmol/L (98-107) Carbon Dioxide Level 18 mmol/L (21-32) Anion Gap 13 (6-14) Blood Urea Nitrogen 19 mg/dL (7-20) Creatinine 0.8 mg/dL (0.6-1.0) Estimated GFR (Cockcroft-Gault) 77.6 BUN/Creatinine Ratio 24 (6-20) Glucose Level 63 mg/dL (70-99) Calcium Level 7.2 mg/dL (8.5-10.1) Total Bilirubin 0.4 mg/dL (0.2-1.0) Aspartate Amino Transf (AST/SGOT) 16 U/L (15-37) Alanine Aminotransferase (ALT/SGPT) 14 U/L (14-59) Alkaline Phosphatase 61 U/L (46-116) Total Protein 4.2 g/dL (6.4-8.2) Albumin 1.7 g/dL (3.4-5.0) Albumin/Globulin Ratio 0.7 (1.0-1.7) Medications Current Medications Morphine Sulfate (Morphine Sulfate) 2 mg PRN Q2HR PRN IV SEVERE PAIN - 1ST CHOICE Last administered on 09/14/20at 18:27; Start 09/13/20 at 20:30 Sennosides (Senna) 17.2 mg PRN BID PRN PO CONSTIPATION; Start 09/13/20 at 21:00 Docusate Sodium (Colace) 100 mg PRN DAILY PRN PO HARD STOOLS; Start 09/13/20 at 21:00 Ondansetron HCl (Zofran) 4 mg PRN Q6HRS PRN IVP NAUSEA/VOMITING; Start 09/13/20 at 21:00 Dextrose (Dextrose 50%-Water Syringe) 12.5 gm PRN Q15MIN PRN IV SEE COMMENTS; Start 09/13/20 at 21:00 Sodium Chloride 1,000 ml @ 125 mls/hr Q8H IV Last administered on 09/15/20at 20:16; Start 09/13/20 at 21:00 Acetaminophen (Tylenol) 650 mg PRN Q4HRS PRN PO TEMP OVER 100.4F OR MILD PAIN; Start 09/13/20 at 21:00 Piperacillin Sod/ Tazobactam Sod 3.375 gm/Sodium Chloride 50 ml @ 100 mls/hr Q6HRS IV Last administered on 09/14/20at 12:31; Start 09/14/20 at 00:00; Stop 09/14/20 at 13:16; Status DC Pantoprazole Sodium (PROTONIX VIAL for IV PUSH) 40 mg BID IVP Last administered on 09/14/20at 10:18; Start 09/13/20 at 21:00; Stop 09/14/20 at 10:42; Status DC Morphine Sulfate (Morphine Sulfate) 1 mg PRN Q1HR PRN IV MODERATE PAIN- 1ST CHOICE; Start 09/13/20 at 21:00 Morphine Sulfate (Morphine Sulfate) 2 mg PRN Q2HR PRN IVP SEVERE PAIN 7-10; Start 09/13/20 at 21:00; Stop 09/14/20 at 01:58; Status DC Info (Non-Icu Electrolyte Protocol) 1 ea CONT PRN PRN MC PER PROTOCOL; Start 09/14/20 at 02:00; Status Cancel Magnesium Sulfate 50 ml @ 25 mls/hr 1X ONCE IV Last administered on 09/14/20at 04:14; Start 09/14/20 at 03:30; Stop 09/14/20 at 05:29; Status DC Dicyclomine HCl (Bentyl) 10 mg PRN QID PRN IM ABDOMINAL CRAMPS Last administered on 09/14/20at 04:15; Start 09/14/20 at 03:00 Sodium Chloride 1,000 ml @ 1,000 mls/hr 1X ONCE IV Last administered on 09/14/20at 04:15; Start 09/14/20 at 03:30; Stop 09/14/20 at 04:29; Status DC Sodium Chloride 1,000 ml @ 1,000 mls/hr 1X ONCE IV Last administered on 09/14/20at 04:15; Start 09/14/20 at 03:30; Stop 09/14/20 at 04:29; Status DC Sodium Chloride 500 ml @ 500 mls/hr 1X ONCE IV Last administered on 09/14/20at 06:15; Start 09/14/20 at 06:15; Stop 09/14/20 at 07:14; Status DC Sodium Chloride 500 ml @ 500 mls/hr 1X ONCE IV Last administered on 09/14/20at 07:15; Start 09/14/20 at 07:15; Stop 09/14/20 at 08:14; Status DC Pantoprazole Sodium 80 mg/ Sodium Chloride 100 ml @ 10 mls/hr Q10H IV Last administered on 09/16/20at 02:05; Start 09/14/20 at 11:30; Stop 09/17/20 at 11:29 Norepinephrine Bitartrate 8 mg/ Dextrose 258 ml @ 15.48 mls/ hr CONT PRN IV PER PROTOCOL Last administered on 09/15/20at 05:25; Start 09/14/20 at 11:15 Vasopressin 20 unit/Dextrose 101 ml @ 12 mls/hr CONT PRN IV SEE I/O RECORD; Start 09/14/20 at 11:15 Fentanyl Citrate (Fentanyl 2ml Vial) 25 mcg PRN Q5MIN PRN IVP MILD PAIN 1-3 Last administered on 09/14/20at 16:32; Start 09/14/20 at 12:00; Stop 09/14/20 at 20:14; Status DC Fentanyl Citrate (Fentanyl 2ml Vial) 50 mcg PRN Q5MIN PRN IVP MODERATE PAIN 4-6 Last administered on 09/14/20at 16:57; Start 09/14/20 at 12:00; Stop 09/14/20 at 20:14; Status DC Morphine Sulfate (Morphine Sulfate) 1 mg PRN Q10MIN PRN IVP SEVERE PAIN 7-10; Start 09/14/20 at 12:00; Stop 09/14/20 at 20:15; Status DC Ringer's Solution 1,000 ml @ 30 mls/hr Q24H IV Last administered on 09/14/20at 16:31; Start 09/14/20 at 12:00; Stop 09/14/20 at 20:15; Status DC Hydromorphone HCl (Dilaudid) 0.5 mg PRN Q10MIN PRN IVP SEVERE PAIN 7-10, 2nd CHOICE; Start 09/14/20 at 12:00; Stop 09/14/20 at 20:15; Status DC Prochlorperazine Edisylate (Compazine) 5 mg PACU PRN PRN IVP NAUSEA, MRX1 Last administered on 09/14/20at 16:32; Start 09/14/20 at 12:00; Stop 09/14/20 at 20:15; Status DC Info (Icu Electrolyte Protocol) 1 ea CONT PRN PRN MC SEE COMMENTS; Start 09/14/20 at 13:15 Ketamine HCl (Ketamine) 50 mg STK-MED ONCE .ROUTE ; Start 09/14/20 at 13:15; Stop 09/14/20 at 13:15; Status DC Succinylcholine Chloride (Anectine) 200 mg STK-MED ONCE .ROUTE ; Start 09/14/20 at 13:15; Stop 09/14/20 at 13:15; Status DC Rocuronium [place] (Zemuron) 50 mg STK-MED ONCE .ROUTE ; Start 09/14/20 at 13:15; Stop 09/14/20 at 13:15; Status DC Vasopressin (Vasostrict) 20 unit STK-MED ONCE .ROUTE ; Start 09/14/20 at 13:15; Stop 09/14/20 at 13:16; Status DC Midazolam HCl (Versed) 2 mg STK-MED ONCE .ROUTE ; Start 09/14/20 at 13:16; Stop 09/14/20 at 13:16; Status DC Piperacillin Sod/ Tazobactam Sod 2.25 gm/Sodium Chloride 50 ml @ 100 mls/hr Q6HRS IV Last administered on 09/15/20at 11:54; Start 09/14/20 at 18:00; Stop 09/15/20 at 11:59; Status DC Bupivacaine HCl/ Epinephrine Bitart (Sensorcaine-Epi 0.25%-1:324395 Mpf) 30 ml STK-MED ONCE .ROUTE Last administered on 09/14/20at 14:33; Start 09/14/20 at 13:38; Stop 09/14/20 at 13:39; Status DC Rocuronium [place] (Zemuron) 50 mg STK-MED ONCE .ROUTE ; Start 09/14/20 at 14:35; Stop 09/14/20 at 14:35; Status DC Sevoflurane (Ultane) 60 ml STK-MED ONCE IH ; Start 09/14/20 at 15:23; Stop at 15:23; Status DC Neostigmine Methylsulfate (Bloxiverz) 10 mg STK-MED ONCE .ROUTE ; Start 09/14/20 at 15:29; Stop 09/14/20 at 15:29; Status DC Glycopyrrolate (Robinul) 1 mg STK-MED ONCE .ROUTE ; Start 09/14/20 at 15:29; Stop 09/14/20 at 15:29; Status DC Fentanyl Citrate (Fentanyl 2ml Vial) 100 mcg STK-MED ONCE .ROUTE ; Start 09/14/20 at 16:04; Stop 09/14/20 at 16:04; Status DC Phenylephrine HCl (PHENYLEPHRINE in 0.9% NACL PF) 1 mg STK-MED ONCE IV ; Start 09/14/20 at 16:05; Stop 09/14/20 at 16:05; Status DC Prochlorperazine Edisylate (Compazine) 10 mg STK-MED ONCE .ROUTE ; Start 09/14/20 at 16:06; Stop 09/14/20 at 16:06; Status DC Fentanyl Citrate (Fentanyl 2ml Vial) 100 mcg STK-MED ONCE .ROUTE ; Start 09/14/20 at 16:06; Stop 09/14/20 at 16:06; Status DC Fentanyl Citrate (Fentanyl 2ml Vial) 75 mcg PRN Q2HR PRN IVP SEVERE PAIN Last administered on 09/16/20at 07:36; Start 09/14/20 at 18:45 Fentanyl Citrate (Fentanyl 2ml Vial) 50 mcg PRN Q2HR PRN IVP MODERATE PAIN Last administered on 09/15/20at 05:54; Start 09/14/20 at 18:45 Nicotine (Nicoderm Cq 21mg) 1 patch DAILY TD Last administered on 09/16/20at 09:42; Start 09/15/20 at 12:00 Nicotine (Nicoderm Cq 21mg) 1 patch 1X ONCE TD ; Start 09/15/20 at 12:00; Stop 09/15/20 at 12:01; Status UNV Piperacillin Sod/ Tazobactam Sod 3.375 gm/Sodium Chloride 50 ml @ 100 mls/hr Q6HRS IV Last administered on 09/16/20at 05:22; Start 09/15/20 at 12:00 Potassium Chloride/Water 100 ml @ 100 mls/hr Q1H IV Last administered on 09/16/20at 09:43; Start 09/16/20 at 07:30; Stop 09/16/20 at 09:29; Status DC Active Scripts Active Reported Motrin Ib (Ibuprofen) 200 Mg Tablet 200 Mg PO PRN Q4-6HRS PRN Naproxen 500 Mg Tablet.dr 500 Mg PO 6XDAY Vitals/I & O Vital Sign - Last 24 Hours 09/15/20 09/15/20 09/15/20 09/15/20 10:36 11:00 11:06 12:00 Temp 98.0 98.0 Pulse 101 101 Resp 30 22 18 30 B/P (MAP) 93/70 (78) 99/68 (78) Pulse Ox 96 94 100 98 O2 Delivery Room Air Room Air Room Air Room Air 09/15/20 09/15/20 09/15/20 09/15/20 12:00 12:37 13:00 13:07 Pulse 100 Resp 30 24 24 B/P (MAP) 92/64 (73) Pulse Ox 97 95 95 O2 Delivery Room Air Room Air Room Air Room Air 09/15/20 09/15/20 09/15/20 09/15/20 14:00 15:00 15:43 16:00 Temp 97.5 97.5 Pulse 106 110 111 Resp 26 27 20 26 B/P (MAP) 107/73 (84) 106/77 (87) 96/71 (79) Pulse Ox 99 94 93 95 O2 Delivery Room Air Room Air Room Air Room Air 09/15/20 09/15/20 09/15/20 09/15/20 16:00 16:13 17:00 17:59 Pulse 110 Resp 30 B/P (MAP) 107/83 (91) Pulse Ox 95 95 97 O2 Delivery Room Air Room Air Room Air Room Air 09/15/20 09/15/20 09/15/20 09/15/20 18:00 18:45 20:04 20:08 Temp 98.6 98.6 Pulse 121 114 Resp 24 B/P (MAP) 112/68 (83) 117/92 (100) Pulse Ox 96 96 95 O2 Delivery Room Air Room Air Room Air Room Air 09/15/20 09/15/20 09/16/20 09/16/20 20:17 20:54 00:13 02:05 Temp 98.3 98.3 Pulse 103 Resp B/P (MAP) 122/93 (103) Pulse Ox 95 95 98 98 O2 Delivery Room Air Room Air Room Air Room Air 09/16/20 09/16/20 09/16/20 09/16/20 02:35 04:15 07:36 08:00 Temp 98.0 98.0 Pulse 98 Resp B/P (MAP) 136/96 (109) Pulse Ox 98 99 100 O2 Delivery Room Air Room Air Room Air Room Air 09/16/20 09/16/20 08:00 08:06 Temp 97.8 97.8 Pulse 97 Resp B/P (MAP) 137/93 (108) Pulse Ox 99 100 O2 Delivery Room Air Room Air Intake and Output 09/15/20 09/15/20 09/16/20 15:00 23:00 07:00 Intake Total 264 ml 1602 ml 300 ml Output Total 400 ml 1105 ml 530 ml Balance -136 ml 497 ml -230 ml Justifications for Admission Other Justification Abdominal pain due to perforated gastric ulcer RACHAEL BOYD MD Sep 16, 2020 10:19
--- NOTE | 2020-09-16 10:42 | PDOC ---
PROGRESS NOTES Date of Service: DATE: 09/16/20 TIME: 10:42 Chief Complaint Chief Complaint impression Septic shock Hemodynamic instability BARBARA due to vasomotor nephropathyworsening Acute abdominal pain due to perforated gastric ulcer, concern for uncontained perforation Hyponatremia Tobacco misuse Admit to medicine for further management General surgery consult Strict n.p.o. Continue IV fluids IV electrolyte replacement as needed IV Protonix Serial abdominal exams Contraindicated for DVT prophylaxis IV Protonix GI prophylaxis Full code Discussed with RN and SW Disposition inpatient management as above Surrogate decision maker is boyfriend History of Present Illness History of Present Illness 45-year-old female with past medical history of plaque psoriasis, alcohol use, smoking who presents with 2-week history of epigastric abdominal pain and nausea vomiting. Abdominal pain got worse last Thursday, 9 out of 10 cramping sensation. She states that there is some blood in her vomitus and it in her stool. Her last alcoholic drink was on . She has been taking Aleve and ibuprofen for her pains. She does not take any antiacid medications. She was seen in the ED at [facility] and found on CT scan performed which showed abnormal thickening of the stomach consistent with gastritis as well as small extraluminal air perigastric concerning for gastric ulcer perforation. Patient currently is complaining of epigastric abdominal pain and appears to be very much in distress. 09/16/2020 continue Zosyn to 3.375 q. 6 hours Status post robotic-assisted laparoscopic repair of gastric ulcer and French patch on 09/14/2020. Leukocytosis, likely reactive.Recent postoperative pt Patient with labile blood pressures hanging in the low 70s to 80s systolics. Creatinine increased from 1.2-2.6. transferred to the ICU for vasopressor and possible surgical intervention. 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 Continue IV fluids IV electrolyte replacement as needed IV Protonix Serial abdominal exams Contraindicated for DVT prophylaxis mediastinal lymphadenopathy, mediastinal mass, or enlargement/tortuosity of the aorta. CT of the chest to further evaluate . / PULM CONSULT ECHO 33 min cc time 09/15/2020 Patient with labile blood pressures hanging in the low 70s to 80s systolics. Creatinine increased from 1.2-2.6. transferred to the ICU for vasopressor and possible surgical intervention. Patient's chart, labs, images were reviewed and discussed with RN Septic shock Hemodynamic instability BARBARA due to vasomotor nephropathyworsening Acute abdominal pain due to perforated gastric ulcer, concern for uncontained perforation Hyponatremia Tobacco misuse Admit to medicine for further management General surgery consult Strict n.p.o. Continue IV fluids IV electrolyte replacement as needed IV Protonix Serial abdominal exams Contraindicated for DVT prophylaxis 33 min cc time Vitals Vitals Vital Signs Date Time Temp Pulse Resp B/P (MAP) Pulse Ox O2 Delivery O2 Flow Rate FiO2 09/16/20 08:06 23 100 Room Air 09/16/20 08:00 97.8 97 137/93 (108) 97.8 09/15/20 08:24 6.0 Physical Exam Physical Exam GENERAL: Alert, oriented x 3 female lying in bed in no acute distress. HEENT: Normocephalic, atraumatic. Anicteric. NG tube in place. Poor dentition NECK: Supple, no lymphadenopathy. LUNGS: Clear bilaterally. No wheezing. HEART: S1, S2. No gallops or murmurs. ABDOMEN: Soft. Laparoscopic dressing intact, dry, not taken down. Drain in place. Mild tenderness to palpation in the upper quadrant. No rebound or guarding. EXTREMITIES: No edema, no cyanosis. DERMATOLOGIC: Warm, dry, no generalized rash. NEUROLOGIC: Alert, oriented x 3, grossly nonfocal. PSYCHIATRIC: Calm and cooperative. General: Alert, Oriented X3, Cooperative, No acute distress, Other (ill appearing ) Heart: Regular rate, Normal S1, Normal S2, No murmurs Abdomen: Soft (STONE serosang) Extremities: No cyanosis, No edema Skin: No significant lesion Labs LABS OPERATIVE REPORT Patient Name: Rod Nicholson Unit Number: [id number] Date of : 1975 Patient Status: Admitted Inpatient Attending Doctor: Rosaura Beth III, DO Operative Note Operative Note Operative Note Date: September 14, 2020 at 1528 Preoperative diagnosis: Perforated gastric ulcer Postoperative diagnosis: Same Procedure: Robotic assisted laparoscopic repair of gastric ulcer and French patch Surgeon: Marshall Specimen: None Dictation: Patient is a 45-year-old female was mated to the hospital with epiga stric abdominal pain but hemodynamically stable. Over the night she became unstable with more pain. The procedure of laparoscopic repair of gastric ulcer possible open repair was explained to the patient in detail risk benefits were also discussed including bleeding infection injury to intra-abdominal contents possible necessitating further or open operations alternatives to this procedure also discussed with the patient who seemed to understand and gave a verbal written consent to have the procedure performed. Patient was taken to the operating room placed in the supine position general anesthesia was initiated once patient was sleeping intubated central line was placed by anesthesia and then her abdomen was prepped and draped in usual sterile fashion using ChloraPrep. An area just below the umbilicus was injected with quarter percent Marcaine with epinephrine incision was made 11 blade scalpel and a varies needle was placed creating pneumoperitoneum once this was complete a 5 mm port was placed and a 5 mm camera was placed within the abdomen was noted there is quite a bit of ascites. A 5 mm port was placed in the left midabdomen and a 5 mm port was placed in the right midabdomen. Using a grasper the anterior surface of the stomach was visualized and inspected towards the distal end of the stomach prepyloric area there was a attached portion of omentum with blackened surface that came off of the stomach very easily and underneath that was a dime sized hole within the stomach. At this point the 5 mm ports were changed out for 8 mm da Ramana ports the da Ramana robot is brought and docked all port sites surgeon went to the robotic console using a grasper and needle drivers a two OV lock absorbable suture was used to oversew the ulcer closing the hole. A tongue of omentum was then placed over the top of this and sewn to the stomach covering the portion of the closed hole as a French patch. The abdomen was suctioned and irrigated especially the right and left upper quadrants. At this point the da Ramana robot was undocked from all ports surgeon went back to the operative field and a 19 Mong[place]ian STONE drain was placed through the right port site the drain was placed between the liver and the stomach from the left to the right side this was sewn into place with a 2-0 silk. The pneumoperitoneum was reduced all ports were removed port sites were all closed with 4 subcuticular Monocryl Mastisol Steri-Strips and island dressings were applied. Patient was awakened and extubated in the operating room taken to recovery in stable condition all sponge instrument needle counts listed as correct estimated blood loss 5 mL JHONY NÚÑEZ MD Signed PATIENT: ROD NICHOLSON AACCOUNT: [id number] : 1975 LOCATION: [address] [place] [address] AGE: 45 SEX: F EXAM STATUS: ADM IN ORD. PHYSICIAN: JHONY ENG MD REASON: ATELECTASIS PROCEDURE: CHEST AP ONLY EXAM: XR CHEST 1V 09/15/2020 11:52 AM CLINICAL INDICATION: Atelectasis COMPARISON: Chest radiograph 09/14/2020 TECHNIQUE: AP view of the chest FINDINGS: The right IJ central venous catheter is unchanged with tip at the superior cavoatrial junction. Nasogastric tube has been advanced and terminates in the gastric body. An additional drain projects over the left upper quadrant. The heart is enlarged, unchanged. There is mediastinal and hilar fullness, unchanged. Small left pleural effusion and basilar opacities are unchanged. There are calcified granulomas in the lungs. No pneumothorax. Old left clavicle fracture is unchanged. IMPRESSION: 1. Unchanged fullness of the mediastinum and left hilum. This could be due to mediastinal lymphadenopathy, mediastinal mass, or enlargement/tortuosity of the aorta. Considered CT of the chest to further evaluate if indicated. 2. Unchanged small left pleural effusion and basilar opacities. Electronically signed by: Tamie Johnson MD (09/15/2020 3:05 PM) [id number] DICTATED and SIGNED BY: TAMIE JOHNSON MD DATE: 09/15/20 [id number] 0 Laboratory Tests Test 09/15/20 18:00 09/16/20 06:00 Troponin I Quantitative 0.703 ng/mL (0.000-0.055) 0.284 ng/mL (0.000-0.055) White Blood Count 18.2 x10^3/uL (4.0-11.0) Red Blood Count 3.10 x10^6/uL (3.50-5.40) Hemoglobin 9.8 g/dL (12.0-15.5) Hematocrit 30.4 % (36.0-47.0) Mean Corpuscular Volume 98 fL (79-100) Mean Corpuscular Hemoglobin 32 pg (25-35) Mean Corpuscular Hemoglobin Concent 32 g/dL (31-37) Red Cell Distribution Width 14.7 % (11.5-14.5) Platelet Count 154 x10^3/uL (140-400) Neutrophils (%) (Auto) 93 % (31-73) Lymphocytes (%) (Auto) 2 % (24-48) Monocytes (%) (Auto) 4 % (0-9) Eosinophils (%) (Auto) 0 % (0-3) Basophils (%) (Auto) 0 % (0-3) Neutrophils # (Auto) 17.0 x10^3/uL (1.8-7.7) Lymphocytes # (Auto) 0.4 x10^3/uL (1.0-4.8) Monocytes # (Auto) 0.7 x10^3/uL (0.0-1.1) Eosinophils # (Auto) 0.1 x10^3/uL (0.0-0.7) Basophils # (Auto) 0.0 x10^3/uL (0.0-0.2) Sodium Level 139 mmol/L (136-145) Potassium Level 3.3 mmol/L (3.5-5.1) Chloride Level 108 mmol/L (98-107) Carbon Dioxide Level 18 mmol/L (21-32) Anion Gap 13 (6-14) Blood Urea Nitrogen 19 mg/dL (7-20) Creatinine 0.8 mg/dL (0.6-1.0) Estimated GFR (Cockcroft-Gault) 77.6 BUN/Creatinine Ratio 24 (6-20) Glucose Level 63 mg/dL (70-99) Calcium Level 7.2 mg/dL (8.5-10.1) Total Bilirubin 0.4 mg/dL (0.2-1.0) Aspartate Amino Transf (AST/SGOT) 16 U/L (15-37) Alanine Aminotransferase (ALT/SGPT) 14 U/L (14-59) Alkaline Phosphatase 61 U/L (46-116) Total Protein 4.2 g/dL (6.4-8.2) Albumin 1.7 g/dL (3.4-5.0) Albumin/Globulin Ratio 0.7 (1.0-1.7) Comment Review of Relevant I have reviewed the following items joel (where applicable) has been applied. Labs Laboratory Tests Test 09/14/20 13:04 09/14/20 13:08 09/14/20 14:30 09/15/20 08:30 SARS-CoV-2 Antigen (Rapid) Negative (NEGATIVE) Urine Test Negative (NEG) Lactic Acid Level 1.6 mmol/L (0.4-2.0) White Blood Count 20.5 x10^3/uL (4.0-11.0) Red Blood Count 3.36 x10^6/uL (3.50-5.40) Hemoglobin 10.9 g/dL (12.0-15.5) Hematocrit 32.9 % (36.0-47.0) Mean Corpuscular Volume 98 fL (79-100) Mean Corpuscular Hemoglobin 32 pg (25-35) Mean Corpuscular Hemoglobin Concent 33 g/dL (31-37) Red Cell Distribution Width 14.4 % (11.5-14.5) Platelet Count 181 x10^3/uL (140-400) Sodium Level 138 mmol/L (136-145) Potassium Level 3.7 mmol/L (3.5-5.1) Chloride Level 109 mmol/L (98-107) Carbon Dioxide Level 19 mmol/L (21-32) Anion Gap 10 (6-14) Blood Urea Nitrogen 25 mg/dL (7-20) Creatinine 1.1 mg/dL (0.6-1.0) Estimated GFR (Cockcroft-Gault) 53.7 BUN/Creatinine Ratio 23 (6-20) Glucose Level 119 mg/dL (70-99) Calcium Level 7.3 mg/dL (8.5-10.1) Total Bilirubin 0.4 mg/dL (0.2-1.0) Aspartate Amino Transf (AST/SGOT) 33 U/L (15-37) Alanine Aminotransferase (ALT/SGPT) 16 U/L (14-59) Alkaline Phosphatase 56 U/L (46-116) Troponin I Quantitative 1.562 ng/mL (0.000-0.055) Total Protein 5.2 g/dL (6.4-8.2) Albumin 1.9 g/dL (3.4-5.0) Albumin/Globulin Ratio 0.6 (1.0-1.7) Test 09/15/20 18:00 09/16/20 06:00 Troponin I Quantitative 0.703 ng/mL (0.000-0.055) 0.284 ng/mL (0.000-0.055) White Blood Count 18.2 x10^3/uL (4.0-11.0) Red Blood Count 3.10 x10^6/uL (3.50-5.40) Hemoglobin 9.8 g/dL (12.0-15.5) Hematocrit 30.4 % (36.0-47.0) Mean Corpuscular Volume 98 fL (79-100) Mean Corpuscular Hemoglobin 32 pg (25-35) Mean Corpuscular Hemoglobin Concent 32 g/dL (31-37) Red Cell Distribution Width 14.7 % (11.5-14.5) Platelet Count 154 x10^3/uL (140-400) Neutrophils (%) (Auto) 93 % (31-73) Lymphocytes (%) (Auto) 2 % (24-48) Monocytes (%) (Auto) 4 % (0-9) Eosinophils (%) (Auto) 0 % (0-3) Basophils (%) (Auto) 0 % (0-3) Neutrophils # (Auto) 17.0 x10^3/uL (1.8-7.7) Lymphocytes # (Auto) 0.4 x10^3/uL (1.0-4.8) Monocytes # (Auto) 0.7 x10^3/uL (0.0-1.1) Eosinophils # (Auto) 0.1 x10^3/uL (0.0-0.7) Basophils # (Auto) 0.0 x10^3/uL (0.0-0.2) Sodium Level 139 mmol/L (136-145) Potassium Level 3.3 mmol/L (3.5-5.1) Chloride Level 108 mmol/L (98-107) Carbon Dioxide Level 18 mmol/L (21-32) Anion Gap 13 (6-14) Blood Urea Nitrogen 19 mg/dL (7-20) Creatinine 0.8 mg/dL (0.6-1.0) Estimated GFR (Cockcroft-Gault) 77.6 BUN/Creatinine Ratio 24 (6-20) Glucose Level 63 mg/dL (70-99) Calcium Level 7.2 mg/dL (8.5-10.1) Total Bilirubin 0.4 mg/dL (0.2-1.0) Aspartate Amino Transf (AST/SGOT) 16 U/L (15-37) Alanine Aminotransferase (ALT/SGPT) 14 U/L (14-59) Alkaline Phosphatase 61 U/L (46-116) Total Protein 4.2 g/dL (6.4-8.2) Albumin 1.7 g/dL (3.4-5.0) Albumin/Globulin Ratio 0.7 (1.0-1.7) Laboratory Tests Test 09/15/20 18:00 09/16/20 06:00 Troponin I Quantitative 0.703 ng/mL (0.000-0.055) 0.284 ng/mL (0.000-0.055) White Blood Count 18.2 x10^3/uL (4.0-11.0) Red Blood Count 3.10 x10^6/uL (3.50-5.40) Hemoglobin 9.8 g/dL (12.0-15.5) Hematocrit 30.4 % (36.0-47.0) Mean Corpuscular Volume 98 fL (79-100) Mean Corpuscular Hemoglobin 32 pg (25-35) Mean Corpuscular Hemoglobin Concent 32 g/dL (31-37) Red Cell Distribution Width 14.7 % (11.5-14.5) Platelet Count 154 x10^3/uL (140-400) Neutrophils (%) (Auto) 93 % (31-73) Lymphocytes (%) (Auto) 2 % (24-48) Monocytes (%) (Auto) 4 % (0-9) Eosinophils (%) (Auto) 0 % (0-3) Basophils (%) (Auto) 0 % (0-3) Neutrophils # (Auto) 17.0 x10^3/uL (1.8-7.7) Lymphocytes # (Auto) 0.4 x10^3/uL (1.0-4.8) Monocytes # (Auto) 0.7 x10^3/uL (0.0-1.1) Eosinophils # (Auto) 0.1 x10^3/uL (0.0-0.7) Basophils # (Auto) 0.0 x10^3/uL (0.0-0.2) Sodium Level 139 mmol/L (136-145) Potassium Level 3.3 mmol/L (3.5-5.1) Chloride Level 108 mmol/L (98-107) Carbon Dioxide Level 18 mmol/L (21-32) Anion Gap 13 (6-14) Blood Urea Nitrogen 19 mg/dL (7-20) Creatinine 0.8 mg/dL (0.6-1.0) Estimated GFR (Cockcroft-Gault) 77.6 BUN/Creatinine Ratio 24 (6-20) Glucose Level 63 mg/dL (70-99) Calcium Level 7.2 mg/dL (8.5-10.1) Total Bilirubin 0.4 mg/dL (0.2-1.0) Aspartate Amino Transf (AST/SGOT) 16 U/L (15-37) Alanine Aminotransferase (ALT/SGPT) 14 U/L (14-59) Alkaline Phosphatase 61 U/L (46-116) Total Protein 4.2 g/dL (6.4-8.2) Albumin 1.7 g/dL (3.4-5.0) Albumin/Globulin Ratio 0.7 (1.0-1.7) Medications Current Medications Morphine Sulfate (Morphine Sulfate) 2 mg PRN Q2HR PRN IV SEVERE PAIN - 1ST CHOICE Last administered on 09/14/20at 18:27; Start 09/13/20 at 20:30 Sennosides (Senna) 17.2 mg PRN BID PRN PO CONSTIPATION; Start 09/13/20 at 21:00 Docusate Sodium (Colace) 100 mg PRN DAILY PRN PO HARD STOOLS; Start 09/13/20 at 21:00 Ondansetron HCl (Zofran) 4 mg PRN Q6HRS PRN IVP NAUSEA/VOMITING; Start 09/13/20 at 21:00 Dextrose (Dextrose 50%-Water Syringe) 12.5 gm PRN Q15MIN PRN IV SEE COMMENTS; Start 09/13/20 at 21:00 Sodium Chloride 1,000 ml @ 125 mls/hr Q8H IV Last administered on 09/15/20at 20:16; Start 09/13/20 at 21:00 Acetaminophen (Tylenol) 650 mg PRN Q4HRS PRN PO TEMP OVER 100.4F OR MILD PAIN; Start 09/13/20 at 21:00 Piperacillin Sod/ Tazobactam Sod 3.375 gm/Sodium Chloride 50 ml @ 100 mls/hr Q6HRS IV Last administered on 09/14/20at 12:31; Start 09/14/20 at 00:00; Stop 09/14/20 at 13:16; Status DC Pantoprazole Sodium (PROTONIX VIAL for IV PUSH) 40 mg BID IVP Last administered on 09/14/20at 10:18; Start 09/13/20 at 21:00; Stop 09/14/20 at 10:42; Status DC Morphine Sulfate (Morphine Sulfate) 1 mg PRN Q1HR PRN IV MODERATE PAIN- 1ST CHOICE; Start 09/13/20 at 21:00 Morphine Sulfate (Morphine Sulfate) 2 mg PRN Q2HR PRN IVP SEVERE PAIN 7-10; Start 09/13/20 at 21:00; Stop 09/14/20 at 01:58; Status DC Info (Non-Icu Electrolyte Protocol) 1 ea CONT PRN PRN MC PER PROTOCOL; Start 09/14/20 at 02:00; Status Cancel Magnesium Sulfate 50 ml @ 25 mls/hr 1X ONCE IV Last administered on 09/14/20at 04:14; Start 09/14/20 at 03:30; Stop 09/14/20 at 05:29; Status DC Dicyclomine HCl (Bentyl) 10 mg PRN QID PRN IM ABDOMINAL CRAMPS Last administered on 09/14/20at 04:15; Start 09/14/20 at 03:00 Sodium Chloride 1,000 ml @ 1,000 mls/hr 1X ONCE IV Last administered on 09/14/20at 04:15; Start 09/14/20 at 03:30; Stop 09/14/20 at 04:29; Status DC Sodium Chloride 1,000 ml @ 1,000 mls/hr 1X ONCE IV Last administered on 09/14/20at 04:15; Start 09/14/20 at 03:30; Stop 09/14/20 at 04:29; Status DC Sodium Chloride 500 ml @ 500 mls/hr 1X ONCE IV Last administered on 09/14/20at 06:15; Start 09/14/20 at 06:15; Stop 09/14/20 at 07:14; Status DC Sodium Chloride 500 ml @ 500 mls/hr 1X ONCE IV Last administered on 09/14/20at 07:15; Start 09/14/20 at 07:15; Stop 09/14/20 at 08:14; Status DC Pantoprazole Sodium 80 mg/ Sodium Chloride 100 ml @ 10 mls/hr Q10H IV Last administered on 09/16/20at 02:05; Start 09/14/20 at 11:30; Stop 09/17/20 at 11:29 Norepinephrine Bitartrate 8 mg/ Dextrose 258 ml @ 15.48 mls/ hr CONT PRN IV PER PROTOCOL Last administered on 09/15/20at 05:25; Start 09/14/20 at 11:15 Vasopressin 20 unit/Dextrose 101 ml @ 12 mls/hr CONT PRN IV SEE I/O RECORD; Start 09/14/20 at 11:15 Fentanyl Citrate (Fentanyl 2ml Vial) 25 mcg PRN Q5MIN PRN IVP MILD PAIN 1-3 Last administered on 09/14/20at 16:32; Start 09/14/20 at 12:00; Stop 09/14/20 at 20:14; Status DC Fentanyl Citrate (Fentanyl 2ml Vial) 50 mcg PRN Q5MIN PRN IVP MODERATE PAIN 4-6 Last administered on 09/14/20at 16:57; Start 09/14/20 at 12:00; Stop 09/14/20 at 20:14; Status DC Morphine Sulfate (Morphine Sulfate) 1 mg PRN Q10MIN PRN IVP SEVERE PAIN 7-10; Start 09/14/20 at 12:00; Stop 09/14/20 at 20:15; Status DC Ringer's Solution 1,000 ml @ 30 mls/hr Q24H IV Last administered on 09/14/20at 16:31; Start 09/14/20 at 12:00; Stop 09/14/20 at 20:15; Status DC Hydromorphone HCl (Dilaudid) 0.5 mg PRN Q10MIN PRN IVP SEVERE PAIN 7-10, 2nd CHOICE; Start 09/14/20 at 12:00; Stop 09/14/20 at 20:15; Status DC Prochlorperazine Edisylate (Compazine) 5 mg PACU PRN PRN IVP NAUSEA, MRX1 Last administered on 09/14/20at 16:32; Start 09/14/20 at 12:00; Stop 09/14/20 at 20:15; Status DC Info (Icu Electrolyte Protocol) 1 ea CONT PRN PRN MC SEE COMMENTS; Start 09/14/20 at 13:15 Ketamine HCl (Ketamine) 50 mg STK-MED ONCE .ROUTE ; Start 09/14/20 at 13:15; Stop 09/14/20 at 13:15; Status DC Succinylcholine Chloride (Anectine) 200 mg STK-MED ONCE .ROUTE ; Start 09/14/20 at 13:15; Stop 09/14/20 at 13:15; Status DC Rocuronium Bascom (Zemuron) 50 mg STK-MED ONCE .ROUTE ; Start 09/14/20 at 13:15; Stop 09/14/20 at 13:15; Status DC Vasopressin (Vasostrict) 20 unit STK-MED ONCE .ROUTE ; Start 09/14/20 at 13:15; Stop 09/14/20 at 13:16; Status DC Midazolam HCl (Versed) 2 mg STK-MED ONCE .ROUTE ; Start 09/14/20 at 13:16; Stop 09/14/20 at 13:16; Status DC Piperacillin Sod/ Tazobactam Sod 2.25 gm/Sodium Chloride 50 ml @ 100 mls/hr Q6HRS IV Last administered on 09/15/20at 11:54; Start 09/14/20 at 18:00; Stop 09/15/20 at 11:59; Status DC Bupivacaine HCl/ Epinephrine Bitart (Sensorcaine-Epi 0.25%-1:[id number] Mpf) 30 ml STK-MED ONCE .ROUTE Last administered on 09/14/20at 14:33; Start 09/14/20 at 13:38; Stop 09/14/20 at 13:39; Status DC Rocuronium Bascom (Zemuron) 50 mg STK-MED ONCE .ROUTE ; Start 09/14/20 at 14:35; Stop 09/14/20 at 14:35; Status DC Sevoflurane (Ultane) 60 ml STK-MED ONCE IH ; Start 09/14/20 at 15:23; Stop 09/14/20 at 15:23; Status DC Neostigmine Methylsulfate (Bloxiverz) 10 mg STK-MED ONCE .ROUTE ; Start 09/14/20 at 15:29; Stop 09/14/20 at 15:29; Status DC Glycopyrrolate (Robinul) 1 mg STK-MED ONCE .ROUTE ; Start 09/14/20 at 15:29; Stop 09/14/20 at 15:29; Status DC Fentanyl Citrate (Fentanyl 2ml Vial) 100 mcg STK-MED ONCE .ROUTE ; Start 09/14/20 at 16:04; Stop 09/14/20 at 16:04; Status DC Phenylephrine HCl (PHENYLEPHRINE in 0.9% NACL PF) 1 mg STK-MED ONCE IV ; Start 09/14/20 at 16:05; Stop 09/14/20 at 16:05; Status DC Prochlorperazine Edisylate (Compazine) 10 mg STK-MED ONCE .ROUTE ; Start 09/14/20 at 16:06; Stop 09/14/20 at 16:06; Status DC Fentanyl Citrate (Fentanyl 2ml Vial) 100 mcg STK-MED ONCE .ROUTE ; Start 09/14/20 at 16:06; Stop 09/14/20 at 16:06; Status DC Fentanyl Citrate (Fentanyl 2ml Vial) 75 mcg PRN Q2HR PRN IVP SEVERE PAIN Last administered on 09/16/20at 07:36; Start 09/14/20 at 18:45 Fentanyl Citrate (Fentanyl 2ml Vial) 50 mcg PRN Q2HR PRN IVP MODERATE PAIN Last administered on 09/15/20at 05:54; Start 09/14/20 at 18:45 Nicotine (Nicoderm Cq 21mg) 1 patch DAILY TD Last administered on 09/16/20at 09:42; Start 09/15/20 at 12:00 Nicotine (Nicoderm Cq 21mg) 1 patch 1X ONCE TD ; Start 09/15/20 at 12:00; Stop 09/15/20 at 12:01; Status UNV Piperacillin Sod/ Tazobactam Sod 3.375 gm/Sodium Chloride 50 ml @ 100 mls/hr Q6HRS IV Last administered on 09/16/20at 05:22; Start 09/15/20 at 12:00 Potassium Chloride/Water 100 ml @ 100 mls/hr Q1H IV Last administered on 09/16/20at 09:43; Start 09/16/20 at 07:30; Stop 09/16/20 at 09:29; Status DC Active Scripts Active Reported Motrin Ib (Ibuprofen) 200 Mg Tablet 200 Mg PO PRN Q4-6HRS PRN Naproxen 500 Mg Tablet.dr 500 Mg PO 6XDAY Vitals/I & O Vital Sign - Last 24 Hours 09/15/20 09/15/20 09/15/20 09/15/20 11:00 11:06 12:00 12:00 Temp 98.0 98.0 Pulse 101 101 Resp 22 18 30 B/P (MAP) 93/70 (78) 99/68 (78) Pulse Ox 94 100 98 O2 Delivery Room Air Room Air Room Air Room Air 09/15/20 09/15/20 09/15/20 09/15/20 12:37 13:00 13:07 14:00 Pulse 100 106 Resp 30 24 24 26 B/P (MAP) 92/64 (73) 107/73 (84) Pulse Ox 97 95 95 99 O2 Delivery Room Air Room Air Room Air Room Air 09/15/20 09/15/20 09/15/20 09/15/20 15:00 15:43 16:00 16:00 Temp 97.5 97.5 Pulse 110 111 Resp 27 20 26 B/P (MAP) 106/77 (87) 96/71 (79) Pulse Ox 94 93 95 O2 Delivery Room Air Room Air Room Air Room Air 09/15/20 09/15/20 09/15/20 09/15/20 16:13 17:00 17:59 18:00 Pulse 110 121 Resp 26 28 30 28 B/P (MAP) 107/83 (91) 112/68 (83) Pulse Ox 95 95 97 96 O2 Delivery Room Air Room Air Room Air Room Air 09/15/20 09/15/20 09/15/20 09/15/20 18:45 20:04 20:08 20:17 Temp 98.6 98.6 Pulse 114 Resp 18 24 18 B/P (MAP) 117/92 (100) Pulse Ox 96 95 95 O2 Delivery Room Air Room Air Room Air Room Air 09/15/20 09/16/20 09/16/20 09/16/20 20:54 00:13 02:05 02:35 Temp 98.3 98.3 Pulse 103 Resp B/P (MAP) 122/93 (103) Pulse Ox 95 98 98 98 O2 Delivery Room Air Room Air Room Air Room Air 09/16/20 09/16/20 09/16/20 09/16/20 04:15 07:36 08:00 08:00 Temp 98.0 97.8 98.0 97.8 Pulse 98 97 Resp B/P (MAP) 136/96 (109) 137/93 (108) Pulse Ox 99 100 99 O2 Delivery Room Air Room Air Room Air Room Air 09/16/20 08:06 Resp 23 Pulse Ox 100 O2 Delivery Room Air Intake and Output 09/15/20 09/15/20 09/16/20 15:00 23:00 07:00 Intake Total 264 ml 1602 ml 300 ml Output Total 400 ml 1105 ml 530 ml Balance -136 ml 497 ml -230 ml Justicifation of Admission Dx: Justifications for Admission: Justification of Admission Dx: Yes Sepsis: Hemodynamic Instability JHONY ENG MD Sep 16, 2020 10:42
--- NOTE | 2020-09-16 12:17 | PDOC ---
PULMONARY PROGRESS NOTES DATE: 09/16/20 TIME: 12:14 Vitals Vital Signs Date Time Temp Pulse Resp B/P (MAP) Pulse Ox O2 Delivery O2 Flow Rate FiO2 09/16/20 12:00 97.6 97 28 154/104 (121) 96 Room Air 97.6 09/15/20 08:24 6.0 Labs Laboratory Tests Test 09/14/20 13:04 09/14/20 13:08 09/14/20 14:30 09/15/20 08:30 SARS-CoV-2 Antigen (Rapid) Negative (NEGATIVE) Urine Test Negative (NEG) Lactic Acid Level 1.6 mmol/L (0.4-2.0) White Blood Count 20.5 x10^3/uL (4.0-11.0) Red Blood Count 3.36 x10^6/uL (3.50-5.40) Hemoglobin 10.9 g/dL (12.0-15.5) Hematocrit 32.9 % (36.0-47.0) Mean Corpuscular Volume 98 fL (79-100) Mean Corpuscular Hemoglobin 32 pg (25-35) Mean Corpuscular Hemoglobin Concent 33 g/dL (31-37) Red Cell Distribution Width 14.4 % (11.5-14.5) Platelet Count 181 x10^3/uL (140-400) Sodium Level 138 mmol/L (136-145) Potassium Level 3.7 mmol/L (3.5-5.1) Chloride Level 109 mmol/L (98-107) Carbon Dioxide Level 19 mmol/L (21-32) Anion Gap 10 (6-14) Blood Urea Nitrogen 25 mg/dL (7-20) Creatinine 1.1 mg/dL (0.6-1.0) Estimated GFR (Cockcroft-Gault) 53.7 BUN/Creatinine Ratio 23 (6-20) Glucose Level 119 mg/dL (70-99) Calcium Level 7.3 mg/dL (8.5-10.1) Total Bilirubin 0.4 mg/dL (0.2-1.0) Aspartate Amino Transf (AST/SGOT) 33 U/L (15-37) Alanine Aminotransferase (ALT/SGPT) 16 U/L (14-59) Alkaline Phosphatase 56 U/L (46-116) Troponin I Quantitative 1.562 ng/mL (0.000-0.055) Total Protein 5.2 g/dL (6.4-8.2) Albumin 1.9 g/dL (3.4-5.0) Albumin/Globulin Ratio 0.6 (1.0-1.7) Test 09/15/20 18:00 09/16/20 06:00 Troponin I Quantitative 0.703 ng/mL (0.000-0.055) 0.284 ng/mL (0.000-0.055) White Blood Count 18.2 x10^3/uL (4.0-11.0) Red Blood Count 3.10 x10^6/uL (3.50-5.40) Hemoglobin 9.8 g/dL (12.0-15.5) Hematocrit 30.4 % (36.0-47.0) Mean Corpuscular Volume 98 fL (79-100) Mean Corpuscular Hemoglobin 32 pg (25-35) Mean Corpuscular Hemoglobin Concent 32 g/dL (31-37) Red Cell Distribution Width 14.7 % (11.5-14.5) Platelet Count 154 x10^3/uL (140-400) Neutrophils (%) (Auto) 93 % (31-73) Lymphocytes (%) (Auto) 2 % (24-48) Monocytes (%) (Auto) 4 % (0-9) Eosinophils (%) (Auto) 0 % (0-3) Basophils (%) (Auto) 0 % (0-3) Neutrophils # (Auto) 17.0 x10^3/uL (1.8-7.7) Lymphocytes # (Auto) 0.4 x10^3/uL (1.0-4.8) Monocytes # (Auto) 0.7 x10^3/uL (0.0-1.1) Eosinophils # (Auto) 0.1 x10^3/uL (0.0-0.7) Basophils # (Auto) 0.0 x10^3/uL (0.0-0.2) Sodium Level 139 mmol/L (136-145) Potassium Level 3.3 mmol/L (3.5-5.1) Chloride Level 108 mmol/L (98-107) Carbon Dioxide Level 18 mmol/L (21-32) Anion Gap 13 (6-14) Blood Urea Nitrogen 19 mg/dL (7-20) Creatinine 0.8 mg/dL (0.6-1.0) Estimated GFR (Cockcroft-Gault) 77.6 BUN/Creatinine Ratio 24 (6-20) Glucose Level 63 mg/dL (70-99) Calcium Level 7.2 mg/dL (8.5-10.1) Total Bilirubin 0.4 mg/dL (0.2-1.0) Aspartate Amino Transf (AST/SGOT) 16 U/L (15-37) Alanine Aminotransferase (ALT/SGPT) 14 U/L (14-59) Alkaline Phosphatase 61 U/L (46-116) Total Protein 4.2 g/dL (6.4-8.2) Albumin 1.7 g/dL (3.4-5.0) Albumin/Globulin Ratio 0.7 (1.0-1.7) Laboratory Tests Test 09/15/20 18:00 09/16/20 06:00 Troponin I Quantitative 0.703 ng/mL (0.000-0.055) 0.284 ng/mL (0.000-0.055) White Blood Count 18.2 x10^3/uL (4.0-11.0) Red Blood Count 3.10 x10^6/uL (3.50-5.40) Hemoglobin 9.8 g/dL (12.0-15.5) Hematocrit 30.4 % (36.0-47.0) Mean Corpuscular Volume 98 fL (79-100) Mean Corpuscular Hemoglobin 32 pg (25-35) Mean Corpuscular Hemoglobin Concent 32 g/dL (31-37) Red Cell Distribution Width 14.7 % (11.5-14.5) Platelet Count 154 x10^3/uL (140-400) Neutrophils (%) (Auto) 93 % (31-73) Lymphocytes (%) (Auto) 2 % (24-48) Monocytes (%) (Auto) 4 % (0-9) Eosinophils (%) (Auto) 0 % (0-3) Basophils (%) (Auto) 0 % (0-3) Neutrophils # (Auto) 17.0 x10^3/uL (1.8-7.7) Lymphocytes # (Auto) 0.4 x10^3/uL (1.0-4.8) Monocytes # (Auto) 0.7 x10^3/uL (0.0-1.1) Eosinophils # (Auto) 0.1 x10^3/uL (0.0-0.7) Basophils # (Auto) 0.0 x10^3/uL (0.0-0.2) Sodium Level 139 mmol/L (136-145) Potassium Level 3.3 mmol/L (3.5-5.1) Chloride Level 108 mmol/L (98-107) Carbon Dioxide Level 18 mmol/L (21-32) Anion Gap 13 (6-14) Blood Urea Nitrogen 19 mg/dL (7-20) Creatinine 0.8 mg/dL (0.6-1.0) Estimated GFR (Cockcroft-Gault) 77.6 BUN/Creatinine Ratio 24 (6-20) Glucose Level 63 mg/dL (70-99) Calcium Level 7.2 mg/dL (8.5-10.1) Total Bilirubin 0.4 mg/dL (0.2-1.0) Aspartate Amino Transf (AST/SGOT) 16 U/L (15-37) Alanine Aminotransferase (ALT/SGPT) 14 U/L (14-59) Alkaline Phosphatase 61 U/L (46-116) Total Protein 4.2 g/dL (6.4-8.2) Albumin 1.7 g/dL (3.4-5.0) Albumin/Globulin Ratio 0.7 (1.0-1.7) Medications Active Scripts Medications Dose Route/Sig Max Daily Dose Days Date Category Motrin Ib (Ibuprofen) 200 Mg Tablet 200 Mg PO PRN Q4-6HRS PRN 09/13/20 Reported Naproxen 500 Mg Tablet.dr 500 Mg PO 6XDAY 09/13/20 Reported Impression . Abnormal chest x-ray in the smoker Will obtain CT chest Continue postop care PERNELL CORREIA MD Sep 16, 2020 12:17
--- NOTE | 2020-09-16 14:23 | CONS ---
DATE OF CONSULTATION: 09/16/2020 ATTENDING PHYSICIAN: Manuel Vasquez MD REASON FOR CONSULTATION: The patient is seen in Pulmonary consultation at the request of Dr. Vasquez for history of tobacco use, possible COPD, also abnormal chest x-ray. HISTORY OF PRESENT ILLNESS: The patient is a 45-year-old that presented to [facility] complains of epigastric pain. Two weeks prior to admission, she developed some nausea and vomiting, started having periods of emesis. CT abdomen revealed thickening of the stomach consistent with gastritis with small extraluminal air in the perigastric concerning for gastric ulcer perforation. The patient underwent a robotic-assisted repair on 09/14. She has a history of tobacco use. Has no diagnosis of COPD. She continues to smoke. I was asked to see her in consultation. She has had SARS-CoV-2 negative. ID has been consulted. She is currently on antibiotics including Zosyn. PAST MEDICAL HISTORY: Otherwise, unremarkable except for psoriasis. She smokes. She has never been told that she has COPD. SOCIAL HISTORY: She smokes. ALLERGIES: No known drug allergies. FAMILY HISTORY: Noncontributory. REVIEW OF SYSTEMS: As indicated above, otherwise a 10-point system was reviewed and negative. PHYSICAL EXAMINATION: VITAL SIGNS: Stable. O2 saturation currently on room air 96%. Yesterday, postop, she was on 6 liters of oxygen supplementation. HEENT: Eyes, the sclerae are nonicteric. NECK: Jugular venous distention was not elevated. No lymphadenopathy. CHEST: Full expansion. LUNGS: Adequate flow with no wheezes. CARDIOVASCULAR: Regular rate and rhythm with S1, S2, no S3. ABDOMEN: Soft. Dressing in place. EXTREMITIES: No clubbing, cyanosis or edema. LABORATORY DATA: White count was elevated. Serology rapid test for COVID was negative. Electrolytes were noted. Chest x-ray revealed some fullness of the mediastinum and left hilum, a small left-sided effusion and basilar opacities. IMPRESSION: 1. Abnormal x-ray revealing left hilar fullness in the patient that smokes. 2. Suspect chronic obstructive pulmonary disease, unknown FEV1. 3. Tobacco dependent. 4. Status post robotic-assisted laparoscopic repair of a gastric ulcer with French patch. 5. Alcoholism. PLAN: 1. We will obtain CT chest and make further recommendation depending on the CT scan findings. 2. Continue postop support. 3. Possible PFTs prior to discharge. 4. The patient instructed on the importance of discontinuing tobacco use. 5. Antibiotics per ID. I do appreciate the privilege in sharing in the patient's care. [facility] [place] DR: Jhoan TID: [id number]
--- NOTE | 2020-09-16 14:44 | PDOC2 ---
CONSULT Date of Consult Date of Consult DATE: 09/16/20 TIME: 14:39 Reason for Consult Reason for Consult: Elevated troponin Referring Physician Referring Physician: Dr. Guevara Identification/Chief Complaint Chief Complaint Abdominal pain Source Source: Chart review, Patient History of Present Illness Reason for Visit: The patient is a 45-year-old female who was admitted on the due to increasing abdominal pain nausea and vomiting. She has a history of alcohol abuse, tobacco abuse and plaque psoriasis. Work-up led to a laparoscopic repair of a gastric ulcer on 09/14. Patient was treated for septic shock with fluids and antibiotics and has gradually improved. We have been asked to see the patient for a elevated troponin of 1.56 on 09/15. Today the patient reports feeling significantly better. Her abdominal and epigastric pain have greatly improved. She denies any typical chest pain. She remains in sinus rhythm. She denies any history of coronary disease, congestive heart failure or cardiac arrhythmias. Past Medical History Cardiovascular: No pertinent hx Pulmonary: No pertinent hx, Other (Tobacco abuse) GI: No pertinent hx Heme/Onc: No pertinent hx Hepatobiliary: No pertinent hx Psych: No pertinent hx Rheumatologic: No pertinent hx Infectious disease: No pertinent hx ENT: No pertinent hx Renal/: No pertinent hx Endocrine: No pertinent hx Dermatology: Other (Plaque psoriasis) Past Surgical History Past Surgical History: No pertinent history Family History Family History: No Significant, Hypertension Social History 1 pack per day ALCOHOL: occassional Drugs: None Lives: with Family Current Medications Current Medications Current Medications Morphine Sulfate (Morphine Sulfate) 2 mg PRN Q2HR PRN IV SEVERE PAIN - 1ST CHOICE Last administered on 09/14/20at 18:27; Start 09/13/20 at 20:30 Sennosides (Senna) 17.2 mg PRN BID PRN PO CONSTIPATION; Start 09/13/20 at 21:00 Docusate Sodium (Colace) 100 mg PRN DAILY PRN PO HARD STOOLS; Start 09/13/20 at 21:00 Ondansetron HCl (Zofran) 4 mg PRN Q6HRS PRN IVP NAUSEA/VOMITING; Start 09/13/20 at 21:00 Dextrose (Dextrose 50%-Water Syringe) 12.5 gm PRN Q15MIN PRN IV SEE COMMENTS; Start 09/13/20 at 21:00 Sodium Chloride 1,000 ml @ 125 mls/hr Q8H IV Last administered on 09/16/20at 12:29; Start 09/13/20 at 21:00 Acetaminophen (Tylenol) 650 mg PRN Q4HRS PRN PO TEMP OVER 100.4F OR MILD PAIN; Start 09/13/20 at 21:00 Piperacillin Sod/ Tazobactam Sod 3.375 gm/Sodium Chloride 50 ml @ 100 mls/hr Q6HRS IV Last administered on 09/14/20at 12:31; Start 09/14/20 at 00:00; Stop 09/14/20 at 13:16; Status DC Pantoprazole Sodium (PROTONIX VIAL for IV PUSH) 40 mg BID IVP Last administered on 09/14/20at 10:18; Start 09/13/20 at 21:00; Stop 09/14/20 at 10:42; Status DC Morphine Sulfate (Morphine Sulfate) 1 mg PRN Q1HR PRN IV MODERATE PAIN- 1ST CHOICE; Start 09/13/20 at 21:00 Morphine Sulfate (Morphine Sulfate) 2 mg PRN Q2HR PRN IVP SEVERE PAIN 7-10; Start 09/13/20 at 21:00; Stop 09/14/20 at 01:58; Status DC Info (Non-Icu Electrolyte Protocol) 1 ea CONT PRN PRN MC PER PROTOCOL; Start 09/14/20 at 02:00; Status Cancel Magnesium Sulfate 50 ml @ 25 mls/hr 1X ONCE IV Last administered on 09/14/20at 04:14; Start 09/14/20 at 03:30; Stop 09/14/20 at 05:29; Status DC Dicyclomine HCl (Bentyl) 10 mg PRN QID PRN IM ABDOMINAL CRAMPS Last administered on 09/14/20at 04:15; Start 09/14/20 at 03:00 Sodium Chloride 1,000 ml @ 1,000 mls/hr 1X ONCE IV Last administered on 09/14/20at 04:15; Start 09/14/20 at 03:30; Stop 09/14/20 at 04:29; Status DC Sodium Chloride 1,000 ml @ 1,000 mls/hr 1X ONCE IV Last administered on 09/14/20at 04:15; Start 09/14/20 at 03:30; Stop 09/14/20 at 04:29; Status DC Sodium Chloride 500 ml @ 500 mls/hr 1X ONCE IV Last administered on 09/14/20at 06:15; Start 09/14/20 at 06:15; Stop 09/14/20 at 07:14; Status DC Sodium Chloride 500 ml @ 500 mls/hr 1X ONCE IV Last administered on 09/14/20at 07:15; Start 09/14/20 at 07:15; Stop 09/14/20 at 08:14; Status DC Pantoprazole Sodium 80 mg/ Sodium Chloride 100 ml @ 10 mls/hr Q10H IV Last administered on 09/16/20at 11:47; Start 09/14/20 at 11:30; Stop 09/17/20 at 11:29 Norepinephrine Bitartrate 8 mg/ Dextrose 258 ml @ 15.48 mls/ hr CONT PRN IV PER PROTOCOL Last administered on 09/15/20at 05:25; Start 09/14/20 at 11:15 Vasopressin 20 unit/Dextrose 101 ml @ 12 mls/hr CONT PRN IV SEE I/O RECORD; Start 09/14/20 at 11:15 Fentanyl Citrate (Fentanyl 2ml Vial) 25 mcg PRN Q5MIN PRN IVP MILD PAIN 1-3 Last administered on 09/14/20at 16:32; Start 09/14/20 at 12:00; Stop 09/14/20 at 20:14; Status DC Fentanyl Citrate (Fentanyl 2ml Vial) 50 mcg PRN Q5MIN PRN IVP MODERATE PAIN 4-6 Last administered on 09/14/20at 16:57; Start 09/14/20 at 12:00; Stop 09/14/20 at 20:14; Status DC Morphine Sulfate (Morphine Sulfate) 1 mg PRN Q10MIN PRN IVP SEVERE PAIN 7-10; Start 09/14/20 at 12:00; Stop 09/14/20 at 20:15; Status DC Ringer's Solution 1,000 ml @ 30 mls/hr Q24H IV Last administered on 09/14/20at 16:31; Start 09/14/20 at 12:00; Stop 09/14/20 at 20:15; Status DC Hydromorphone HCl (Dilaudid) 0.5 mg PRN Q10MIN PRN IVP SEVERE PAIN 7-10, 2nd CHOICE; Start 09/14/20 at 12:00; Stop 09/14/20 at 20:15; Status DC Prochlorperazine Edisylate (Compazine) 5 mg PACU PRN PRN IVP NAUSEA, MRX1 Last administered on 09/14/20at 16:32; Start 09/14/20 at 12:00; Stop 09/14/20 at 20:15; Status DC Info (Icu Electrolyte Protocol) 1 ea CONT PRN PRN MC SEE COMMENTS; Start 09/14/20 at 13:15 Ketamine HCl (Ketamine) 50 mg STK-MED ONCE .ROUTE ; Start 09/14/20 at 13:15; Stop 09/14/20 at 13:15; Status DC Succinylcholine Chloride (Anectine) 200 mg STK-MED ONCE .ROUTE ; Start 09/14/20 at 13:15; Stop 09/14/20 at 13:15; Status DC Rocuronium Kellogg (Zemuron) 50 mg STK-MED ONCE .ROUTE ; Start 09/14/20 at 13:15; Stop 09/14/20 at 13:15; Status DC Vasopressin (Vasostrict) 20 unit STK-MED ONCE .ROUTE ; Start 09/14/20 at 13:15; Stop 09/14/20 at 13:16; Status DC Midazolam HCl (Versed) 2 mg STK-MED ONCE .ROUTE ; Start 09/14/20 at 13:16; Stop 09/14/20 at 13:16; Status DC Piperacillin Sod/ Tazobactam Sod 2.25 gm/Sodium Chloride 50 ml @ 100 mls/hr Q6HRS IV Last administered on 09/15/20at 11:54; Start 09/14/20 at 18:00; Stop 09/15/20 at 11:59; Status DC Bupivacaine HCl/ Epinephrine Bitart (Sensorcaine-Epi 0.25%-1:526175 Mpf) 30 ml STK-MED ONCE .ROUTE Last administered on 09/14/20at 14:33; Start 09/14/20 at 13:38; Stop 09/14/20 at 13:39; Status DC Rocuronium Kellogg (Zemuron) 50 mg STK-MED ONCE .ROUTE ; Start 09/14/20 at 14:35; Stop 09/14/20 at 14:35; Status DC Sevoflurane (Ultane) 60 ml STK-MED ONCE IH ; Start 09/14/20 at 15:23; Stop at 15:23; Status DC Neostigmine Methylsulfate (Bloxiverz) 10 mg STK-MED ONCE .ROUTE ; Start 09/14/20 at 15:29; Stop 09/14/20 at 15:29; Status DC Glycopyrrolate (Robinul) 1 mg STK-MED ONCE .ROUTE ; Start 09/14/20 at 15:29; Stop 09/14/20 at 15:29; Status DC Fentanyl Citrate (Fentanyl 2ml Vial) 100 mcg STK-MED ONCE .ROUTE ; Start 09/14/20 at 16:04; Stop 09/14/20 at 16:04; Status DC Phenylephrine HCl (PHENYLEPHRINE in 0.9% NACL PF) 1 mg STK-MED ONCE IV ; Start 09/14/20 at 16:05; Stop 09/14/20 at 16:05; Status DC Prochlorperazine Edisylate (Compazine) 10 mg STK-MED ONCE .ROUTE ; Start 09/14/20 at 16:06; Stop 09/14/20 at 16:06; Status DC Fentanyl Citrate (Fentanyl 2ml Vial) 100 mcg STK-MED ONCE .ROUTE ; Start 09/14/20 at 16:06; Stop 09/14/20 at 16:06; Status DC Fentanyl Citrate (Fentanyl 2ml Vial) 75 mcg PRN Q2HR PRN IVP SEVERE PAIN Last administered on 09/16/20at 12:50; Start 09/14/20 at 18:45 Fentanyl Citrate (Fentanyl 2ml Vial) 50 mcg PRN Q2HR PRN IVP MODERATE PAIN Last administered on 09/15/20at 05:54; Start 09/14/20 at 18:45 Nicotine (Nicoderm Cq 21mg) 1 patch DAILY TD Last administered on 09/16/20at 09:42; Start 09/15/20 at 12:00 Nicotine (Nicoderm Cq 21mg) 1 patch 1X ONCE TD ; Start 09/15/20 at 12:00; Stop 09/15/20 at 12:01; Status UNV Piperacillin Sod/ Tazobactam Sod 3.375 gm/Sodium Chloride 50 ml @ 100 mls/hr Q6HRS IV Last administered on 09/16/20at 11:47; Start 09/15/20 at 12:00 Potassium Chloride/Water 100 ml @ 100 mls/hr Q1H IV Last administered on 09/16/20at 09:43; Start 09/16/20 at 07:30; Stop 09/16/20 at 09:29; Status DC Pantoprazole Sodium (PROTONIX VIAL for IV PUSH) 40 mg BIDAC IVP ; Start 09/17/20 at 07:30 Active Scripts Active Reported Motrin Ib (Ibuprofen) 200 Mg Tablet 200 Mg PO PRN Q4-6HRS PRN Naproxen 500 Mg Tablet.dr 500 Mg PO 6XDAY Allergies Allergies: Coded Allergies: No Known Drug Allergies (Unverified , 09/13/20) ROS Gastrointestinal: Yes Nausea, Yes Vomiting, Yes Abdominal Pain Physical Exam General: mild distress HEENT: Atraumatic Lungs: Clear to auscultation Heart: Regular rate Abdomen: Other (Mildly tender abdomen.) Vitals VITALS Vital Signs Date Time Temp Pulse Resp B/P (MAP) Pulse Ox O2 Delivery O2 Flow Rate FiO2 09/16/20 13:20 23 96 Room Air 09/16/20 12:00 97.6 97 154/104 (121) 97.6 09/15/20 08:24 6.0 Labs Labs Laboratory Tests Test 09/15/20 08:30 09/15/20 18:00 09/16/20 06:00 White Blood Count 20.5 x10^3/uL (4.0-11.0) 18.2 x10^3/uL (4.0-11.0) Red Blood Count 3.36 x10^6/uL (3.50-5.40) 3.10 x10^6/uL (3.50-5.40) Hemoglobin 10.9 g/dL (12.0-15.5) 9.8 g/dL (12.0-15.5) Hematocrit 32.9 % (36.0-47.0) 30.4 % (36.0-47.0) Mean Corpuscular Volume 98 fL (79-100) 98 fL (79-100) Mean Corpuscular Hemoglobin 32 pg (25-35) 32 pg (25-35) Mean Corpuscular Hemoglobin Concent 33 g/dL (31-37) 32 g/dL (31-37) Red Cell Distribution Width 14.4 % (11.5-14.5) 14.7 % (11.5-14.5) Platelet Count 181 x10^3/uL (140-400) 154 x10^3/uL (140-400) Sodium Level 138 mmol/L (136-145) 139 mmol/L (136-145) Potassium Level 3.7 mmol/L (3.5-5.1) 3.3 mmol/L (3.5-5.1) Chloride Level 109 mmol/L (98-107) 108 mmol/L (98-107) Carbon Dioxide Level 19 mmol/L (21-32) 18 mmol/L (21-32) Anion Gap 10 (6-14) 13 (6-14) Blood Urea Nitrogen 25 mg/dL (7-20) 19 mg/dL (7-20) Creatinine 1.1 mg/dL (0.6-1.0) 0.8 mg/dL (0.6-1.0) Estimated GFR (Cockcroft-Gault) 53.7 77.6 BUN/Creatinine Ratio 23 (6-20) 24 (6-20) Glucose Level 119 mg/dL (70-99) 63 mg/dL (70-99) Calcium Level 7.3 mg/dL (8.5-10.1) 7.2 mg/dL (8.5-10.1) Total Bilirubin 0.4 mg/dL (0.2-1.0) 0.4 mg/dL (0.2-1.0) Aspartate Amino Transf (AST/SGOT) 33 U/L (15-37) 16 U/L (15-37) Alanine Aminotransferase (ALT/SGPT) 16 U/L (14-59) 14 U/L (14-59) Alkaline Phosphatase 56 U/L (46-116) 61 U/L (46-116) Troponin I Quantitative 1.562 ng/mL (0.000-0.055) 0.703 ng/mL (0.000-0.055) 0.284 ng/mL (0.000-0.055) Total Protein 5.2 g/dL (6.4-8.2) 4.2 g/dL (6.4-8.2) Albumin 1.9 g/dL (3.4-5.0) 1.7 g/dL (3.4-5.0) Albumin/Globulin Ratio 0.6 (1.0-1.7) 0.7 (1.0-1.7) Neutrophils (%) (Auto) 93 % (31-73) Lymphocytes (%) (Auto) 2 % (24-48) Monocytes (%) (Auto) 4 % (0-9) Eosinophils (%) (Auto) 0 % (0-3) Basophils (%) (Auto) 0 % (0-3) Neutrophils # (Auto) 17.0 x10^3/uL (1.8-7.7) Lymphocytes # (Auto) 0.4 x10^3/uL (1.0-4.8) Monocytes # (Auto) 0.7 x10^3/uL (0.0-1.1) Eosinophils # (Auto) 0.1 x10^3/uL (0.0-0.7) Basophils # (Auto) 0.0 x10^3/uL (0.0-0.2) Laboratory Tests Test 09/15/20 18:00 09/16/20 06:00 Troponin I Quantitative 0.703 ng/mL (0.000-0.055) 0.284 ng/mL (0.000-0.055) White Blood Count 18.2 x10^3/uL (4.0-11.0) Red Blood Count 3.10 x10^6/uL (3.50-5.40) Hemoglobin 9.8 g/dL (12.0-15.5) Hematocrit 30.4 % (36.0-47.0) Mean Corpuscular Volume 98 fL (79-100) Mean Corpuscular Hemoglobin 32 pg (25-35) Mean Corpuscular Hemoglobin Concent 32 g/dL (31-37) Red Cell Distribution Width 14.7 % (11.5-14.5) Platelet Count 154 x10^3/uL (140-400) Neutrophils (%) (Auto) 93 % (31-73) Lymphocytes (%) (Auto) 2 % (24-48) Monocytes (%) (Auto) 4 % (0-9) Eosinophils (%) (Auto) 0 % (0-3) Basophils (%) (Auto) 0 % (0-3) Neutrophils # (Auto) 17.0 x10^3/uL (1.8-7.7) Lymphocytes # (Auto) 0.4 x10^3/uL (1.0-4.8) Monocytes # (Auto) 0.7 x10^3/uL (0.0-1.1) Eosinophils # (Auto) 0.1 x10^3/uL (0.0-0.7) Basophils # (Auto) 0.0 x10^3/uL (0.0-0.2) Sodium Level 139 mmol/L (136-145) Potassium Level 3.3 mmol/L (3.5-5.1) Chloride Level 108 mmol/L (98-107) Carbon Dioxide Level 18 mmol/L (21-32) Anion Gap 13 (6-14) Blood Urea Nitrogen 19 mg/dL (7-20) Creatinine 0.8 mg/dL (0.6-1.0) Estimated GFR (Cockcroft-Gault) 77.6 BUN/Creatinine Ratio 24 (6-20) Glucose Level 63 mg/dL (70-99) Calcium Level 7.2 mg/dL (8.5-10.1) Total Bilirubin 0.4 mg/dL (0.2-1.0) Aspartate Amino Transf (AST/SGOT) 16 U/L (15-37) Alanine Aminotransferase (ALT/SGPT) 14 U/L (14-59) Alkaline Phosphatase 61 U/L (46-116) Total Protein 4.2 g/dL (6.4-8.2) Albumin 1.7 g/dL (3.4-5.0) Albumin/Globulin Ratio 0.7 (1.0-1.7) Assessment/Plan Assessment/Plan 1. Abdominal pain with diagnosis of a gastric ulcer which was laparoscopically repaired on 09/14/2020. Patient additionally has been treated with IV antibiotics for septic shock. She reports feeling significantly better. We will continue present treatment as per the surgical and ID services. 2. Elevated troponin of 1.56 on 09/15/2020. Patient denies any chest pain. She has remained in a sinus rhythm. Her troponin has trended down. Believe this is most consistent with demand ischemia. We will continue present treatments. We will check an echocardiogram for LV function. 3. Tobacco abuse. Possible mild COPD. Pulmonary has been consulted. 4. Alcohol use. Possible greater than normal use in the past. We will continue discussion with the patient. 5. Plaque psoriasis. JORI RIZZO MD Sep 16, 2020 14:44
--- NOTE | 2020-09-16 20:50 | NUR ---
Pt was transferred to [facility] to room 650 at 2035. Hemodynamically stable, on room air. Central dressing changed and cleaned.
[2020-09-17] MEDS: fentaNYL PF VIAL 100 MCG/2 ML VIAL IVP PRN ×10 (00:51→23:01)
[2020-09-17] MEDS: PIPERACILLIN/TAZOBACTAM 3.375 GM in IV NORMAL SALINE 50ML 50 ML IV SCH ×4 (00:51→17:57)
[2020-09-17] MEDS: PANTOPRAZOLE SODIUM IV DRIP 80 MG in IV NORMAL SALINE 100ML 100 ML IV SCH (01:36)
[2020-09-17 03:00] VITALS: BP 140/94
[2020-09-17] MEDS: IV NORMAL SALINE 1000ML BAG 1,000 ML IV SCH ×3 (05:48→20:41)
[2020-09-17 06:16] LABS: BASO % 0 % (0-3); EOS # 0.1 x10^3/uL (0.0-0.7); EOS % 1 % (0-3); HEMOGLOBIN 9.9 g/dL (12.0-15.5); LYMPH # 0.4 x10^3/uL (1.0-4.8); LYMPH % 3 % (24-48); MEAN CORPUSCULAR HEMOGLOBIN 32 pg (25-35); MEAN CORPUSCULAR HGB CONC 33 g/dL (31-37); MEAN CORPUSCULAR VOLUME 98 fL (79-100); MONO # 1.2 x10^3/uL (0.0-1.1); MONO % 8 % (0-9); NEUT # 13.5 x10^3/uL (1.8-7.7); NEUT % 88 % (31-73); PLATELET COUNT 179 x10^3/uL (140-400); RED BLOOD COUNT 3.07 x10^6/uL (3.50-5.40); RED CELL DISTRIBUTION WIDTH 14.7 % (11.5-14.5); WHITE BLOOD COUNT 15.3 x10^3/uL (4.0-11.0)
[2020-09-17 06:22] LABS: CALCIUM 7.8 mg/dL (8.5-10.1); CREATININE 0.7 mg/dL (0.6-1.0); GFR 90.5; POTASSIUM 3.3 mmol/L (3.5-5.1)
[2020-09-17 06:25] LABS: CHOLESTEROL/HDL RATIO 4.1
[2020-09-17 07:30] VITALS: BP 144/92
[2020-09-17] MEDS ORDERED: ELECTROLYTE (NON-ICU) PROTOCOL. MC PRN (07:45)
[2020-09-17] MEDS: PANTOPRAZOLE IV PUSH 40 MG VIAL. IVP SCH ×2 (08:21→17:43)
[2020-09-17] MEDS: NICOTINE 21MG PATCH. TD SCH (08:22)
[2020-09-17] MEDS ORDERED: POTASSIUM CHLORIDE 20MEQ 100 ML IV ONE (08:30)
--- NOTE | 2020-09-17 08:43 | PDOC ---
Infectious Disease Note Subjective: Subjective Patient feels better Wants NG tube taken out Denies any fever, nausea, vomiting, shortness of breath or cough Vital Signs: Vital Signs Vital Signs Date Time Temp Pulse Resp B/P (MAP) Pulse Ox O2 Delivery O2 Flow Rate FiO2 09/17/20 03:00 98.2 104 22 140/94 (109) 96 Room Air 98.2 Physical Exam: PHYSICAL EXAM GENERAL: Alert, oriented x 3 female lying in bed in no acute distress. HEENT: Normocephalic, atraumatic. Anicteric. NG tube in place. Poor dentition NECK: Supple, no lymphadenopathy. LUNGS: Clear bilaterally. No wheezing. HEART: S1, S2. No gallops or murmurs. ABDOMEN: Soft. Laparoscopic dressing intact, dry, not taken down. Drain in place. Mild tenderness to palpation in the upper quadrant. No rebound or guarding. EXTREMITIES: No edema, no cyanosis. DERMATOLOGIC: Warm, dry, no generalized rash. NEUROLOGIC: Alert, oriented x 3, grossly nonfocal. PSYCHIATRIC: Calm and cooperative. Medications: Inpatient Meds: Medications reviewed. Labs: Lab Laboratory Tests Test 09/17/20 05:50 White Blood Count 15.3 x10^3/uL (4.0-11.0) Red Blood Count 3.07 x10^6/uL (3.50-5.40) Hemoglobin 9.9 g/dL (12.0-15.5) Hematocrit 30.0 % (36.0-47.0) Mean Corpuscular Volume 98 fL (79-100) Mean Corpuscular Hemoglobin 32 pg (25-35) Mean Corpuscular Hemoglobin Concent 33 g/dL (31-37) Red Cell Distribution Width 14.7 % (11.5-14.5) Platelet Count 179 x10^3/uL (140-400) Neutrophils (%) (Auto) 88 % (31-73) Lymphocytes (%) (Auto) 3 % (24-48) Monocytes (%) (Auto) 8 % (0-9) Eosinophils (%) (Auto) 1 % (0-3) Basophils (%) (Auto) 0 % (0-3) Neutrophils # (Auto) 13.5 x10^3/uL (1.8-7.7) Lymphocytes # (Auto) 0.4 x10^3/uL (1.0-4.8) Monocytes # (Auto) 1.2 x10^3/uL (0.0-1.1) Eosinophils # (Auto) 0.1 x10^3/uL (0.0-0.7) Basophils # (Auto) 0.0 x10^3/uL (0.0-0.2) Sodium Level 139 mmol/L (136-145) Potassium Level 3.3 mmol/L (3.5-5.1) Chloride Level 106 mmol/L (98-107) Carbon Dioxide Level 18 mmol/L (21-32) Anion Gap 15 (6-14) Blood Urea Nitrogen 9 mg/dL (7-20) Creatinine 0.7 mg/dL (0.6-1.0) Estimated GFR (Cockcroft-Gault) 90.5 Glucose Level 74 mg/dL (70-99) Calcium Level 7.8 mg/dL (8.5-10.1) Triglycerides Level 65 mg/dL (0-150) Cholesterol Level 78 mg/dL (0-200) LDL Cholesterol, Calculated 46 mg/dL (0-100) VLDL Cholesterol, Calculated 13 mg/dL (0-40) Non-HDL Cholesterol Calculated 59 mg/dL (0-129) HDL Cholesterol 19 mg/dL (40-60) Cholesterol/HDL Ratio 4.1 Objective: Assessment: 1. Septic shock from perforated viscus. 2. Acute abdominal pain due to perforated gastric ulcer. 3. Status post robotic-assisted laparoscopic repair of gastric ulcer and French patch on 09/14/2020. 4. Leukocytosis, likely reactive. 5. Anemia, acute blood loss. 6. History of tobaccoism. 7. BARBARA with hyponatremia, resolved. 8. Protein-calorie malnutrition. 9. Mediastinal mass/fullness on chest x-ray Plan: Plan of Care : Cont Zosyn Drain and wound care as directed. Awaiting CT chest Follow up labs and cultures. Continue supportive care. Maintain aspiration precaution. DARYN SHEPPARD MD Sep 17, 2020 08:43
--- NOTE | 2020-09-17 09:43 | PDOC ---
PULMONARY PROGRESS NOTES DATE: 09/17/20 TIME: 09:43 Subjective Patient not more short of air not requiring any oxygen Vitals Vital Signs Date Time Temp Pulse Resp B/P (MAP) Pulse Ox O2 Delivery O2 Flow Rate FiO2 09/17/20 07:30 99.0 94 20 144/92 (109) 97 Room Air 99.0 ROS: No Nausea, No Increase Cough General: Alert Lungs: Clear Cardiovascular: S1, S2 Abdomen: Soft Neuro Exam: Alert Extremities: No Edema Skin: Warm Labs Laboratory Tests Test 09/15/20 18:00 09/16/20 06:00 09/17/20 05:50 Troponin I Quantitative 0.703 ng/mL (0.000-0.055) 0.284 ng/mL (0.000-0.055) White Blood Count 18.2 x10^3/uL (4.0-11.0) 15.3 x10^3/uL (4.0-11.0) Red Blood Count 3.10 x10^6/uL (3.50-5.40) 3.07 x10^6/uL (3.50-5.40) Hemoglobin 9.8 g/dL (12.0-15.5) 9.9 g/dL (12.0-15.5) Hematocrit 30.4 % (36.0-47.0) 30.0 % (36.0-47.0) Mean Corpuscular Volume 98 fL (79-100) 98 fL (79-100) Mean Corpuscular Hemoglobin 32 pg (25-35) 32 pg (25-35) Mean Corpuscular Hemoglobin Concent 32 g/dL (31-37) 33 g/dL (31-37) Red Cell Distribution Width 14.7 % (11.5-14.5) 14.7 % (11.5-14.5) Platelet Count 154 x10^3/uL (140-400) 179 x10^3/uL (140-400) Neutrophils (%) (Auto) 93 % (31-73) 88 % (31-73) Lymphocytes (%) (Auto) 2 % (24-48) 3 % (24-48) Monocytes (%) (Auto) 4 % (0-9) 8 % (0-9) Eosinophils (%) (Auto) 0 % (0-3) 1 % (0-3) Basophils (%) (Auto) 0 % (0-3) 0 % (0-3) Neutrophils # (Auto) 17.0 x10^3/uL (1.8-7.7) 13.5 x10^3/uL (1.8-7.7) Lymphocytes # (Auto) 0.4 x10^3/uL (1.0-4.8) 0.4 x10^3/uL (1.0-4.8) Monocytes # (Auto) 0.7 x10^3/uL (0.0-1.1) 1.2 x10^3/uL (0.0-1.1) Eosinophils # (Auto) 0.1 x10^3/uL (0.0-0.7) 0.1 x10^3/uL (0.0-0.7) Basophils # (Auto) 0.0 x10^3/uL (0.0-0.2) 0.0 x10^3/uL (0.0-0.2) Sodium Level 139 mmol/L (136-145) 139 mmol/L (136-145) Potassium Level 3.3 mmol/L (3.5-5.1) 3.3 mmol/L (3.5-5.1) Chloride Level 108 mmol/L (98-107) 106 mmol/L (98-107) Carbon Dioxide Level 18 mmol/L (21-32) 18 mmol/L (21-32) Anion Gap 13 (6-14) 15 (6-14) Blood Urea Nitrogen 19 mg/dL (7-20) 9 mg/dL (7-20) Creatinine 0.8 mg/dL (0.6-1.0) 0.7 mg/dL (0.6-1.0) Estimated GFR (Cockcroft-Gault) 77.6 90.5 BUN/Creatinine Ratio 24 (6-20) Glucose Level 63 mg/dL (70-99) 74 mg/dL (70-99) Calcium Level 7.2 mg/dL (8.5-10.1) 7.8 mg/dL (8.5-10.1) Total Bilirubin 0.4 mg/dL (0.2-1.0) Aspartate Amino Transf (AST/SGOT) 16 U/L (15-37) Alanine Aminotransferase (ALT/SGPT) 14 U/L (14-59) Alkaline Phosphatase 61 U/L (46-116) Total Protein 4.2 g/dL (6.4-8.2) Albumin 1.7 g/dL (3.4-5.0) Albumin/Globulin Ratio 0.7 (1.0-1.7) Triglycerides Level 65 mg/dL (0-150) Cholesterol Level 78 mg/dL (0-200) LDL Cholesterol, Calculated 46 mg/dL (0-100) VLDL Cholesterol, Calculated 13 mg/dL (0-40) Non-HDL Cholesterol Calculated 59 mg/dL (0-129) HDL Cholesterol 19 mg/dL (40-60) Cholesterol/HDL Ratio 4.1 Laboratory Tests Test 09/17/20 05:50 White Blood Count 15.3 x10^3/uL (4.0-11.0) Red Blood Count 3.07 x10^6/uL (3.50-5.40) Hemoglobin 9.9 g/dL (12.0-15.5) Hematocrit 30.0 % (36.0-47.0) Mean Corpuscular Volume 98 fL (79-100) Mean Corpuscular Hemoglobin 32 pg (25-35) Mean Corpuscular Hemoglobin Concent 33 g/dL (31-37) Red Cell Distribution Width 14.7 % (11.5-14.5) Platelet Count 179 x10^3/uL (140-400) Neutrophils (%) (Auto) 88 % (31-73) Lymphocytes (%) (Auto) 3 % (24-48) Monocytes (%) (Auto) 8 % (0-9) Eosinophils (%) (Auto) 1 % (0-3) Basophils (%) (Auto) 0 % (0-3) Neutrophils # (Auto) 13.5 x10^3/uL (1.8-7.7) Lymphocytes # (Auto) 0.4 x10^3/uL (1.0-4.8) Monocytes # (Auto) 1.2 x10^3/uL (0.0-1.1) Eosinophils # (Auto) 0.1 x10^3/uL (0.0-0.7) Basophils # (Auto) 0.0 x10^3/uL (0.0-0.2) Sodium Level 139 mmol/L (136-145) Potassium Level 3.3 mmol/L (3.5-5.1) Chloride Level 106 mmol/L (98-107) Carbon Dioxide Level 18 mmol/L (21-32) Anion Gap 15 (6-14) Blood Urea Nitrogen 9 mg/dL (7-20) Creatinine 0.7 mg/dL (0.6-1.0) Estimated GFR (Cockcroft-Gault) 90.5 Glucose Level 74 mg/dL (70-99) Calcium Level 7.8 mg/dL (8.5-10.1) Triglycerides Level 65 mg/dL (0-150) Cholesterol Level 78 mg/dL (0-200) LDL Cholesterol, Calculated 46 mg/dL (0-100) VLDL Cholesterol, Calculated 13 mg/dL (0-40) Non-HDL Cholesterol Calculated 59 mg/dL (0-129) HDL Cholesterol 19 mg/dL (40-60) Cholesterol/HDL Ratio 4.1 Medications Active Scripts Medications Dose Route/Sig Max Daily Dose Days Date Category Motrin Ib (Ibuprofen) 200 Mg Tablet 200 Mg PO PRN Q4-6HRS PRN 09/13/20 Reported Naproxen 500 Mg Tablet.dr 500 Mg PO 6XDAY 09/13/20 Reported Impression . IMPRESSION: 1. Abnormal x-ray revealing left hilar fullness in the patient that smokes. 2. Suspect chronic obstructive pulmonary disease, unknown FEV1. 3. Tobacco dependent. 4. Status post robotic-assisted laparoscopic repair of a gastric ulcer with French patch. 5. Alcoholism. CT report IMPRESSION: 1. Right aortic arch which likely correlates to abnormality seen on radiograph. No abnormal mass or lymphadenopathy. 2. Postoperative changes in the upper abdomen. 3. Small bilateral pleural effusions. Plan . Updated 09/18 CT reviewed, no evidence of lung masses or lymphadenopathy We will sign off, call if needed No further work-up required. PLAN: 1. We will obtain CT chest and make further recommendation depending on the CT scan findings. 2. Continue postop support. 3. Possible PFTs prior to discharge. 4. The patient instructed on the importance of discontinuing tobacco use. 5. Antibiotics per ID. I do appreciate the privilege in sharing in the patient's care. PERNELL CORREIA MD Sep 17, 2020 09:43
--- NOTE | 2020-09-17 09:43 | PDOC ---
SURGICAL PROGRESS NOTE DATE: 09/17/20 TIME: 09:43 Subjective wants ng out, wants to eat asking about when CT is Vital Signs Vital Signs Date Time Temp Pulse Resp B/P (MAP) Pulse Ox O2 Delivery O2 Flow Rate FiO2 09/17/20 07:30 99.0 94 20 144/92 (109) 97 Room Air 99.0 I&O Intake and Output 09/17/20 07:00 Intake Total 4631 ml Output Total 915 ml Balance 3716 ml IV Total 4631 ml Output Urine Total 375 ml Gastric Drainage Total 400 ml Drainage Total 140 ml # Voids 7 # Bowel Movements 1 General: Alert, Oriented X3, Cooperative HEENT: Other (ng serous ) Abdomen: Soft, Other (drain serous ) Labs Laboratory Tests Test 09/15/20 18:00 09/16/20 06:00 09/17/20 05:50 Troponin I Quantitative 0.703 ng/mL (0.000-0.055) 0.284 ng/mL (0.000-0.055) White Blood Count 18.2 x10^3/uL (4.0-11.0) 15.3 x10^3/uL (4.0-11.0) Red Blood Count 3.10 x10^6/uL (3.50-5.40) 3.07 x10^6/uL (3.50-5.40) Hemoglobin 9.8 g/dL (12.0-15.5) 9.9 g/dL (12.0-15.5) Hematocrit 30.4 % (36.0-47.0) 30.0 % (36.0-47.0) Mean Corpuscular Volume 98 fL (79-100) 98 fL (79-100) Mean Corpuscular Hemoglobin 32 pg (25-35) 32 pg (25-35) Mean Corpuscular Hemoglobin Concent 32 g/dL (31-37) 33 g/dL (31-37) Red Cell Distribution Width 14.7 % (11.5-14.5) 14.7 % (11.5-14.5) Platelet Count 154 x10^3/uL (140-400) 179 x10^3/uL (140-400) Neutrophils (%) (Auto) 93 % (31-73) 88 % (31-73) Lymphocytes (%) (Auto) 2 % (24-48) 3 % (24-48) Monocytes (%) (Auto) 4 % (0-9) 8 % (0-9) Eosinophils (%) (Auto) 0 % (0-3) 1 % (0-3) Basophils (%) (Auto) 0 % (0-3) 0 % (0-3) Neutrophils # (Auto) 17.0 x10^3/uL (1.8-7.7) 13.5 x10^3/uL (1.8-7.7) Lymphocytes # (Auto) 0.4 x10^3/uL (1.0-4.8) 0.4 x10^3/uL (1.0-4.8) Monocytes # (Auto) 0.7 x10^3/uL (0.0-1.1) 1.2 x10^3/uL (0.0-1.1) Eosinophils # (Auto) 0.1 x10^3/uL (0.0-0.7) 0.1 x10^3/uL (0.0-0.7) Basophils # (Auto) 0.0 x10^3/uL (0.0-0.2) 0.0 x10^3/uL (0.0-0.2) Sodium Level 139 mmol/L (136-145) 139 mmol/L (136-145) Potassium Level 3.3 mmol/L (3.5-5.1) 3.3 mmol/L (3.5-5.1) Chloride Level 108 mmol/L (98-107) 106 mmol/L (98-107) Carbon Dioxide Level 18 mmol/L (21-32) 18 mmol/L (21-32) Anion Gap 13 (6-14) 15 (6-14) Blood Urea Nitrogen 19 mg/dL (7-20) 9 mg/dL (7-20) Creatinine 0.8 mg/dL (0.6-1.0) 0.7 mg/dL (0.6-1.0) Estimated GFR (Cockcroft-Gault) 77.6 90.5 BUN/Creatinine Ratio 24 (6-20) Glucose Level 63 mg/dL (70-99) 74 mg/dL (70-99) Calcium Level 7.2 mg/dL (8.5-10.1) 7.8 mg/dL (8.5-10.1) Total Bilirubin 0.4 mg/dL (0.2-1.0) Aspartate Amino Transf (AST/SGOT) 16 U/L (15-37) Alanine Aminotransferase (ALT/SGPT) 14 U/L (14-59) Alkaline Phosphatase 61 U/L (46-116) Total Protein 4.2 g/dL (6.4-8.2) Albumin 1.7 g/dL (3.4-5.0) Albumin/Globulin Ratio 0.7 (1.0-1.7) Triglycerides Level 65 mg/dL (0-150) Cholesterol Level 78 mg/dL (0-200) LDL Cholesterol, Calculated 46 mg/dL (0-100) VLDL Cholesterol, Calculated 13 mg/dL (0-40) Non-HDL Cholesterol Calculated 59 mg/dL (0-129) HDL Cholesterol 19 mg/dL (40-60) Cholesterol/HDL Ratio 4.1 Laboratory Tests Test 09/17/20 05:50 White Blood Count 15.3 x10^3/uL (4.0-11.0) Red Blood Count 3.07 x10^6/uL (3.50-5.40) Hemoglobin 9.9 g/dL (12.0-15.5) Hematocrit 30.0 % (36.0-47.0) Mean Corpuscular Volume 98 fL (79-100) Mean Corpuscular Hemoglobin 32 pg (25-35) Mean Corpuscular Hemoglobin Concent 33 g/dL (31-37) Red Cell Distribution Width 14.7 % (11.5-14.5) Platelet Count 179 x10^3/uL (140-400) Neutrophils (%) (Auto) 88 % (31-73) Lymphocytes (%) (Auto) 3 % (24-48) Monocytes (%) (Auto) 8 % (0-9) Eosinophils (%) (Auto) 1 % (0-3) Basophils (%) (Auto) 0 % (0-3) Neutrophils # (Auto) 13.5 x10^3/uL (1.8-7.7) Lymphocytes # (Auto) 0.4 x10^3/uL (1.0-4.8) Monocytes # (Auto) 1.2 x10^3/uL (0.0-1.1) Eosinophils # (Auto) 0.1 x10^3/uL (0.0-0.7) Basophils # (Auto) 0.0 x10^3/uL (0.0-0.2) Sodium Level 139 mmol/L (136-145) Potassium Level 3.3 mmol/L (3.5-5.1) Chloride Level 106 mmol/L (98-107) Carbon Dioxide Level 18 mmol/L (21-32) Anion Gap 15 (6-14) Blood Urea Nitrogen 9 mg/dL (7-20) Creatinine 0.7 mg/dL (0.6-1.0) Estimated GFR (Cockcroft-Gault) 90.5 Glucose Level 74 mg/dL (70-99) Calcium Level 7.8 mg/dL (8.5-10.1) Triglycerides Level 65 mg/dL (0-150) Cholesterol Level 78 mg/dL (0-200) LDL Cholesterol, Calculated 46 mg/dL (0-100) VLDL Cholesterol, Calculated 13 mg/dL (0-40) Non-HDL Cholesterol Calculated 59 mg/dL (0-129) HDL Cholesterol 19 mg/dL (40-60) Cholesterol/HDL Ratio 4.1 Assessment/Plan will clamp ng today Justicifation of Admission Dx: Justifications for Admission: Justification of Admission Dx: Yes Sepsis: Hemodynamic Instability MARTIN GARCIA [employer] Sep 17, 2020 09:43
[2020-09-17] MEDS ORDERED: IOHEXOL 300 MG/ML 100ML VIAL. IV ONE ×2 (09:45)
[2020-09-17] MEDS ORDERED: CONTRAST GIVEN. MC PRN (09:45)
--- NOTE | 2020-09-17 10:26 | NUR ---
SW following. Discussed with RN, pt from home, room air, NPO, rapid COVID-19 negative. Pt has an NG, protonic dip. Getting echo and chest CT done today. RN advised no SW needs at this time. SW will continue to follow.
[2020-09-17 11:00] VITALS: BP 148/101
--- NOTE | 2020-09-17 11:29 | PDOC ---
[employer] PROGRESS NOTE Date of Service DOS: DATE: 09/17/20 TIME: 11:26 Chief Complaint Chief Complaint Impression Septic shock Hemodynamic instability BARBARA due to vasomotor nephropathyworsening Acute abdominal pain due to perforated gastric ulcer, concern for uncontained perforation Hyponatremia Tobacco misuse Plan Continue ongoing admission Patient is now status post surgery; improved abdominal pain; surgery team to control NG tube and diet advancement Mediastinal mass: CT scan to be performed today, pulmonary following Antibiotics per infectious disease, possible peritonitis continue Zosyn History of Present Illness History of Present Illness 45-year-old female with past medical history of plaque psoriasis, alcohol use, smoking who presents with 2-week history of epigastric abdominal pain and nausea vomiting. Abdominal pain got worse last Thursday, 9 out of 10 cramping sensation. She states that there is some blood in her vomitus and it in her stool. Her last alcoholic drink was on . She has been taking Aleve and ibuprofen for her pains. She does not take any antiacid medications. She was seen in the ED at [facility] and found on CT scan performed which showed abnormal thickening of the stomach consistent with gastritis as well as small extraluminal air perigastric concerning for gastric ulcer perforation. Patient currently is complaining of epigastric abdominal pain and appears to be very much in distress. 09/17/2020 Patient seen and examined at bedside Patient reports that her abdominal pain continues to improve says she was just a little sore from walking around. CT scan to evaluate mediastinal mass plan for today; echo performed this morning Continue Zosyn; Diet per surgical team Continue IV Protonix Leukocytosis improved Plan of care discussed with bedside RN 09/16/2020 continue Zosyn to 3.375 q. 6 hours Status post robotic-assisted laparoscopic repair of gastric ulcer and French patch on 09/14/2020. Leukocytosis, likely reactive.Recent postoperative pt Patient with labile blood pressures hanging in the low 70s to 80s systolics. Creatinine increased from 1.2-2.6. transferred to the ICU for vasopressor and possible surgical intervention. 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 Continue IV fluids IV electrolyte replacement as needed IV Protonix Serial abdominal exams Contraindicated for DVT prophylaxis mediastinal lymphadenopathy, mediastinal mass, or enlargement/tortuosity of the aorta. CT of the chest to further evaluate . / PULM CONSULT ECHO 33 min cc time 09/15/2020 Patient with labile blood pressures hanging in the low 70s to 80s systolics. Creatinine increased from 1.2-2.6. transferred to the ICU for vasopressor and possible surgical intervention. Patient's chart, labs, images were reviewed and discussed with RN Septic shock Hemodynamic instability BARBARA due to vasomotor nephropathyworsening Acute abdominal pain due to perforated gastric ulcer, concern for uncontained perforation Hyponatremia Tobacco misuse Admit to medicine for further management General surgery consult Strict n.p.o. Continue IV fluids IV electrolyte replacement as needed IV Protonix Serial abdominal exams Contraindicated for DVT prophylaxis 33 min cc time Vitals/I&O Vitals/I&O: Vital Signs Date Time Temp Pulse Resp B/P (MAP) Pulse Ox O2 Delivery O2 Flow Rate FiO2 09/17/20 08:00 Room Air 09/17/20 07:30 99.0 94 20 144/92 (109) 97 99.0 I & O 09/16/20 09/16/20 09/17/20 15:00 23:00 07:00 Intake Total 250 ml 4381 ml Output Total 465 ml 425 ml 25 ml Balance -215 ml 3956 ml -25 ml Physical Exam Physical Exam: GENERAL: Alert, oriented x 3 female lying in bed in no acute distress. HEENT: Normocephalic, atraumatic. Anicteric. NG tube in place. Poor dentition NECK: Supple, no lymphadenopathy. LUNGS: Clear bilaterally. No wheezing. HEART: S1, S2. No gallops or murmurs. ABDOMEN: Soft. Laparoscopic dressing intact, dry, not taken down. Drain in place. Mild tenderness to palpation in the upper quadrant. No rebound or guarding. EXTREMITIES: No edema, no cyanosis. DERMATOLOGIC: Warm, dry, no generalized rash. NEUROLOGIC: Alert, oriented x 3, grossly nonfocal. PSYCHIATRIC: Calm and cooperative. General: Alert, Oriented X3, Cooperative Heart: Regular rate, Normal S1, Normal S2 Lungs: Clear Abdomen: Other (Diffusely tender, NG tube remains in place) Extremities: No cyanosis, No edema Skin: No significant lesion Labs Labs: Laboratory Tests Test 09/17/20 05:50 White Blood Count 15.3 x10^3/uL (4.0-11.0) Red Blood Count 3.07 x10^6/uL (3.50-5.40) Hemoglobin 9.9 g/dL (12.0-15.5) Hematocrit 30.0 % (36.0-47.0) Mean Corpuscular Volume 98 fL (79-100) Mean Corpuscular Hemoglobin 32 pg (25-35) Mean Corpuscular Hemoglobin Concent 33 g/dL (31-37) Red Cell Distribution Width 14.7 % (11.5-14.5) Platelet Count 179 x10^3/uL (140-400) Neutrophils (%) (Auto) 88 % (31-73) Lymphocytes (%) (Auto) 3 % (24-48) Monocytes (%) (Auto) 8 % (0-9) Eosinophils (%) (Auto) 1 % (0-3) Basophils (%) (Auto) 0 % (0-3) Neutrophils # (Auto) 13.5 x10^3/uL (1.8-7.7) Lymphocytes # (Auto) 0.4 x10^3/uL (1.0-4.8) Monocytes # (Auto) 1.2 x10^3/uL (0.0-1.1) Eosinophils # (Auto) 0.1 x10^3/uL (0.0-0.7) Basophils # (Auto) 0.0 x10^3/uL (0.0-0.2) Sodium Level 139 mmol/L (136-145) Potassium Level 3.3 mmol/L (3.5-5.1) Chloride Level 106 mmol/L (98-107) Carbon Dioxide Level 18 mmol/L (21-32) Anion Gap 15 (6-14) Blood Urea Nitrogen 9 mg/dL (7-20) Creatinine 0.7 mg/dL (0.6-1.0) Estimated GFR (Cockcroft-Gault) 90.5 Glucose Level 74 mg/dL (70-99) Calcium Level 7.8 mg/dL (8.5-10.1) Triglycerides Level 65 mg/dL (0-150) Cholesterol Level 78 mg/dL (0-200) LDL Cholesterol, Calculated 46 mg/dL (0-100) VLDL Cholesterol, Calculated 13 mg/dL (0-40) Non-HDL Cholesterol Calculated 59 mg/dL (0-129) HDL Cholesterol 19 mg/dL (40-60) Cholesterol/HDL Ratio 4.1 Comment Review of Relevant I have reviewed the following items joel (where applicable) has been applied. Medications: Current Medications Medications (Trade) Dose Ordered Sig/Mouna Route PRN Reason Start Time Stop Time Status Last Admin Dose Admin Pantoprazole Sodium (PROTONIX VIAL for IV PUSH) 40 mg BIDAC IVP 09/17/20 07:30 09/17/20 08:21 Potassium Chloride/Water 100 ml @ 50 mls/hr 1X ONCE IV 09/17/20 08:30 09/17/20 10:29 DC 09/17/20 08:22 Justifications for Admission Other Justification Abdominal pain due to perforated gastric ulcer LORENZO WONG MD Sep 17, 2020 11:29
[2020-09-17 15:30] VITALS: BP 156/103
--- NOTE | 2020-09-17 15:31 | RAD ---
Exam: CT of chest with contrast INDICATION: Hilar fullness TECHNIQUE: Sequential axial images through the chest obtained following the administration of 75 mL o f Isovue-370 IV contrast. Sagittal and coronal reformatted images were reconstructed from the axial d bebeto and reviewed. Exposure: One or more of the following in the visualized dose reduction techniques were utilized for this examination: 1. Automated exposure control 2. Adjustment of the MA and/or KV according to patient size 3. Use of iterative of reconstructive technique Comparisons: Chest x-ray 09/15/2020 FINDINGS: Visual is portions of the thyroid are unremarkable. No enlarged mediastinal lymph nodes are identifie d. Heart size is normal. Small pericardial effusion. Thoracic aorta has a normal course. There is a righ t aortic arch. Pulmonary artery is not enlarged. Airways are patent. No consolidation or pneumothorax. No suspicious lung nodules are identified. Small bilateral pleural effusions are noted. There is an enteric tube with tip in stomach. Additionally there is a percutaneous abdominal drain wh ich appears to be terminating in the left upper quadrant. Small amount of intra-abdominal ascites in the visualized upper abdomen. No suspicious osseous lesions or acute fractures. IMPRESSION: 1. Right aortic arch which likely correlates to abnormality seen on radiograph. No abnormal mass or lymphadenopathy. 2. Postoperative changes in the upper abdomen. 3. Small bilateral pleural effusions. Electronically signed by: Geovany Gamboa MD (09/17/2020 3:29 PM) [facility]
--- NOTE | 2020-09-17 17:29 | CARD ---
MR#: [id number] Date of Study: 09/17/2020 Ordering Physician: JORI JAY, Referring Physician: JORI JAY, Tech: Xiomara Samano [facility] APPROVED REPORT EXAM: Two-dimensional and M-mode echocardiogram with Doppler and color Doppler. Other Information Quality : Technically LimitedHR: 97bpm Rhythm : NSR INDICATION Dyspnea RISK FACTORS Hypertension Obesity 2D DIMENSIONS Left Atrium(2D)3.7 (1.6-4.0cm)IVSd1.0 (0.7-1.1cm) Aortic Root(2D)3.2 (2.0-3.7cm)LVDd4.7 (3.9-5.9cm) LVOT Diameter2.1 (1.8-2.4cm)PWd0.9 (0.7-1.1cm) LVDs2.8 (2.5-4.0cm)FS (%) 40.3 % SV73.1 ml Aortic Valve AoV Peak Delta.119.2cm/Rigo Peak GR.5.7mmHg LEFT VENTRICLE The left ventricle is normal size. There is normal left ventricular wall thickness. The left ventricu lar systolic function is normal and the ejection fraction is within normal range. Estimated ejection fraction 60%. There is normal LV segmental wall motion. The left ventricular diastolic function and f illing is normal for age. RIGHT VENTRICLE The right ventricle is normal size. There is normal right ventricular wall thickness. The right ventr icular systolic function is normal. ATRIA The left atrium size is normal. The right atrium size is normal. The interatrial septum is intact wit h no evidence for an atrial septal defect or patent foramen ovale as noted on 2-D or Doppler imaging. AORTIC VALVE The aortic valve is normal in structure and function. Doppler and Color Flow revealed no significant aortic regurgitation. There is no significant aortic valvular stenosis. There is no aortic valvular v egetation. MITRAL VALVE The mitral valve is normal in structure and function. There is no evidence of mitral valve prolapse. There is no mitral valve stenosis. Doppler and Color-flow revealed trace to mild mitral regurgitation . TRICUSPID VALVE The tricuspid valve is normal in structure and function. Doppler and Color Flow revealed no tricuspid valve regurgitation noted. There is no tricuspid valve stenosis. PULMONIC VALVE The pulmonary valve is normal in structure and function. Doppler and Color Flow revealed no pulmonic valvular regurgitation. There is no pulmonic valvular stenosis. GREAT VESSELS The aortic root is normal in size. The ascending aorta is normal in size. The IVC was not visualized. PERICARDIAL EFFUSION There is no evidence of significant pericardial effusion. Critical Notification Critical Value: No <Conclusion> The left ventricle is normal size. The left ventricular systolic function is normal and the ejection fraction is within normal range. E stimated ejection fraction 60%. There is normal LV segmental wall motion. Doppler and Color Flow revealed no significant aortic regurgitation. There is no significant aortic valvular stenosis. Doppler and Color-flow revealed trace to mild mitral regurgitation. Doppler and Color Flow revealed no tricuspid valve regurgitation noted. Signed by : Jori Jay MD Electronically Approved : 09/17/2020 17:29:16
[2020-09-17 19:00] VITALS: BP 159/107
--- NOTE | 2020-09-17 19:30 | PDOC ---
PROGRESS NOTES Date of Service DATE: 09/17/20 TIME: 19:28 Subjective Subjective Patient seen and examined Objective Objective Vital Signs Date Time Temp Pulse Resp B/P (MAP) Pulse Ox O2 Delivery O2 Flow Rate FiO2 09/17/20 15:30 99.3 104 18 156/103 (120) 99 Room Air 99.3 09/15/20 08:24 6.0 Intake and Output 09/17/20 07:00 Intake Total 4631 ml Output Total 915 ml Balance 3716 ml IV Total 4631 ml Output Urine Total 375 ml Gastric Drainage Total 400 ml Drainage Total 140 ml # Voids 7 # Bowel Movements 1 Physical Exam Abdomen: Other (Mild postop tenderness) Heart: Regular rate General: mild distress Lungs: Clear to auscultation Assessment Assessment 1. Abdominal pain with diagnosis of a gastric ulcer which was laparoscopically repaired on 09/14/2020. Patient additionally has been treated with IV antibiotic s for septic shock. The patient continues to feel better. Continue present treatments. 2. Elevated troponin of 1.56 on 09/15/2020. Patient denies any chest pain. She has remained in a sinus rhythm. Her troponin has trended down. Believe this is most consistent with demand ischemia. Echocardiogram shows normal LV systolic function with an ejection fraction of 60% and trace to mild mitral regurgitation. Continue medical treatment. 3. Tobacco abuse. Possible mild COPD. Pulmonary evaluating. Comment Review of Relevant I have reviewed the following items joel (where applicable) has been applied. Labs Laboratory Tests Test 09/16/20 06:00 09/17/20 05:50 White Blood Count 18.2 x10^3/uL (4.0-11.0) 15.3 x10^3/uL (4.0-11.0) Red Blood Count 3.10 x10^6/uL (3.50-5.40) 3.07 x10^6/uL (3.50-5.40) Hemoglobin 9.8 g/dL (12.0-15.5) 9.9 g/dL (12.0-15.5) Hematocrit 30.4 % (36.0-47.0) 30.0 % (36.0-47.0) Mean Corpuscular Volume 98 fL (79-100) 98 fL (79-100) Mean Corpuscular Hemoglobin 32 pg (25-35) 32 pg (25-35) Mean Corpuscular Hemoglobin Concent 32 g/dL (31-37) 33 g/dL (31-37) Red Cell Distribution Width 14.7 % (11.5-14.5) 14.7 % (11.5-14.5) Platelet Count 154 x10^3/uL (140-400) 179 x10^3/uL (140-400) Neutrophils (%) (Auto) 93 % (31-73) 88 % (31-73) Lymphocytes (%) (Auto) 2 % (24-48) 3 % (24-48) Monocytes (%) (Auto) 4 % (0-9) 8 % (0-9) Eosinophils (%) (Auto) 0 % (0-3) 1 % (0-3) Basophils (%) (Auto) 0 % (0-3) 0 % (0-3) Neutrophils # (Auto) 17.0 x10^3/uL (1.8-7.7) 13.5 x10^3/uL (1.8-7.7) Lymphocytes # (Auto) 0.4 x10^3/uL (1.0-4.8) 0.4 x10^3/uL (1.0-4.8) Monocytes # (Auto) 0.7 x10^3/uL (0.0-1.1) 1.2 x10^3/uL (0.0-1.1) Eosinophils # (Auto) 0.1 x10^3/uL (0.0-0.7) 0.1 x10^3/uL (0.0-0.7) Basophils # (Auto) 0.0 x10^3/uL (0.0-0.2) 0.0 x10^3/uL (0.0-0.2) Sodium Level 139 mmol/L (136-145) 139 mmol/L (136-145) Potassium Level 3.3 mmol/L (3.5-5.1) 3.3 mmol/L (3.5-5.1) Chloride Level 108 mmol/L (98-107) 106 mmol/L (98-107) Carbon Dioxide Level 18 mmol/L (21-32) 18 mmol/L (21-32) Anion Gap 13 (6-14) 15 (6-14) Blood Urea Nitrogen 19 mg/dL (7-20) 9 mg/dL (7-20) Creatinine 0.8 mg/dL (0.6-1.0) 0.7 mg/dL (0.6-1.0) Estimated GFR (Cockcroft-Gault) 77.6 90.5 BUN/Creatinine Ratio 24 (6-20) Glucose Level 63 mg/dL (70-99) 74 mg/dL (70-99) Calcium Level 7.2 mg/dL (8.5-10.1) 7.8 mg/dL (8.5-10.1) Total Bilirubin 0.4 mg/dL (0.2-1.0) Aspartate Amino Transf (AST/SGOT) 16 U/L (15-37) Alanine Aminotransferase (ALT/SGPT) 14 U/L (14-59) Alkaline Phosphatase 61 U/L (46-116) Troponin I Quantitative 0.284 ng/mL (0.000-0.055) Total Protein 4.2 g/dL (6.4-8.2) Albumin 1.7 g/dL (3.4-5.0) Albumin/Globulin Ratio 0.7 (1.0-1.7) Triglycerides Level 65 mg/dL (0-150) Cholesterol Level 78 mg/dL (0-200) LDL Cholesterol, Calculated 46 mg/dL (0-100) VLDL Cholesterol, Calculated 13 mg/dL (0-40) Non-HDL Cholesterol Calculated 59 mg/dL (0-129) HDL Cholesterol 19 mg/dL (40-60) Cholesterol/HDL Ratio 4.1 Laboratory Tests Test 09/17/20 05:50 White Blood Count 15.3 x10^3/uL (4.0-11.0) Red Blood Count 3.07 x10^6/uL (3.50-5.40) Hemoglobin 9.9 g/dL (12.0-15.5) Hematocrit 30.0 % (36.0-47.0) Mean Corpuscular Volume 98 fL (79-100) Mean Corpuscular Hemoglobin 32 pg (25-35) Mean Corpuscular Hemoglobin Concent 33 g/dL (31-37) Red Cell Distribution Width 14.7 % (11.5-14.5) Platelet Count 179 x10^3/uL (140-400) Neutrophils (%) (Auto) 88 % (31-73) Lymphocytes (%) (Auto) 3 % (24-48) Monocytes (%) (Auto) 8 % (0-9) Eosinophils (%) (Auto) 1 % (0-3) Basophils (%) (Auto) 0 % (0-3) Neutrophils # (Auto) 13.5 x10^3/uL (1.8-7.7) Lymphocytes # (Auto) 0.4 x10^3/uL (1.0-4.8) Monocytes # (Auto) 1.2 x10^3/uL (0.0-1.1) Eosinophils # (Auto) 0.1 x10^3/uL (0.0-0.7) Basophils # (Auto) 0.0 x10^3/uL (0.0-0.2) Sodium Level 139 mmol/L (136-145) Potassium Level 3.3 mmol/L (3.5-5.1) Chloride Level 106 mmol/L (98-107) Carbon Dioxide Level 18 mmol/L (21-32) Anion Gap 15 (6-14) Blood Urea Nitrogen 9 mg/dL (7-20) Creatinine 0.7 mg/dL (0.6-1.0) Estimated GFR (Cockcroft-Gault) 90.5 Glucose Level 74 mg/dL (70-99) Calcium Level 7.8 mg/dL (8.5-10.1) Triglycerides Level 65 mg/dL (0-150) Cholesterol Level 78 mg/dL (0-200) LDL Cholesterol, Calculated 46 mg/dL (0-100) VLDL Cholesterol, Calculated 13 mg/dL (0-40) Non-HDL Cholesterol Calculated 59 mg/dL (0-129) HDL Cholesterol 19 mg/dL (40-60) Cholesterol/HDL Ratio 4.1 Medications Current Medications Morphine Sulfate (Morphine Sulfate) 2 mg PRN Q2HR PRN IV SEVERE PAIN - 1ST CHOICE Last administered on 09/14/20at 18:27; Start 09/13/20 at 20:30 Sennosides (Senna) 17.2 mg PRN BID PRN PO CONSTIPATION; Start 09/13/20 at 21:00 Docusate Sodium (Colace) 100 mg PRN DAILY PRN PO HARD STOOLS; Start 09/13/20 at 21:00 Ondansetron HCl (Zofran) 4 mg PRN Q6HRS PRN IVP NAUSEA/VOMITING; Start 09/13/20 at 21:00 Dextrose (Dextrose 50%-Water Syringe) 12.5 gm PRN Q15MIN PRN IV SEE COMMENTS; Start 09/13/20 at 21:00 Sodium Chloride 1,000 ml @ 125 mls/hr Q8H IV Last administered on 09/17/20at 05:48; Start 09/13/20 at 21:00 Acetaminophen (Tylenol) 650 mg PRN Q4HRS PRN PO TEMP OVER 100.4F OR MILD PAIN; Start 09/13/20 at 21:00 Piperacillin Sod/ Tazobactam Sod 3.375 gm/Sodium Chloride 50 ml @ 100 mls/hr Q6HRS IV Last administered on 09/14/20at 12:31; Start 09/14/20 at 00:00; Stop 09/14/20 at 13:16; Status DC Pantoprazole Sodium (PROTONIX VIAL for IV PUSH) 40 mg BID IVP Last administered on 09/14/20at 10:18; Start 09/13/20 at 21:00; Stop 09/14/20 at 10:42; Status DC Morphine Sulfate (Morphine Sulfate) 1 mg PRN Q1HR PRN IV MODERATE PAIN- 1ST CHOICE; Start 09/13/20 at 21:00 Morphine Sulfate (Morphine Sulfate) 2 mg PRN Q2HR PRN IVP SEVERE PAIN 7-10; Start 09/13/20 at 21:00; Stop 09/14/20 at 01:58; Status DC Info (Non-Icu Electrolyte Protocol) 1 ea CONT PRN PRN MC PER PROTOCOL; Start 09/14/20 at 02:00; Status Cancel Magnesium Sulfate 50 ml @ 25 mls/hr 1X ONCE IV Last administered on 09/14/20at 04:14; Start 09/14/20 at 03:30; Stop 09/14/20 at 05:29; Status DC Dicyclomine HCl (Bentyl) 10 mg PRN QID PRN IM ABDOMINAL CRAMPS Last administered on 09/14/20at 04:15; Start 09/14/20 at 03:00 Sodium Chloride 1,000 ml @ 1,000 mls/hr 1X ONCE IV Last administered on 09/14/20at 04:15; Start 09/14/20 at 03:30; Stop 09/14/20 at 04:29; Status DC Sodium Chloride 1,000 ml @ 1,000 mls/hr 1X ONCE IV Last administered on 09/14/20at 04:15; Start 09/14/20 at 03:30; Stop 09/14/20 at 04:29; Status DC Sodium Chloride 500 ml @ 500 mls/hr 1X ONCE IV Last administered on 09/14/20at 06:15; Start 09/14/20 at 06:15; Stop 09/14/20 at 07:14; Status DC Sodium Chloride 500 ml @ 500 mls/hr 1X ONCE IV Last administered on 09/14/20at 07:15; Start 09/14/20 at 07:15; Stop 09/14/20 at 08:14; Status DC Pantoprazole Sodium 80 mg/ Sodium Chloride 100 ml @ 10 mls/hr Q10H IV Last administered on 09/17/20at 01:36; Start 09/14/20 at 11:30; Stop 09/17/20 at 09:11; Status DC Norepinephrine Bitartrate 8 mg/ Dextrose 258 ml @ 15.48 mls/ hr CONT PRN IV PER PROTOCOL Last administered on 09/15/20at 05:25; Start 09/14/20 at 11:15; Stop 09/17/20 at 07:35; Status DC Vasopressin 20 unit/Dextrose 101 ml @ 12 mls/hr CONT PRN IV SEE I/O RECORD; Start 09/14/20 at 11:15; Stop 09/17/20 at 07:35; Status DC Fentanyl Citrate (Fentanyl 2ml Vial) 25 mcg PRN Q5MIN PRN IVP MILD PAIN 1-3 Last administered on 09/14/20at 16:32; Start 09/14/20 at 12:00; Stop 09/14/20 at 20:14; Status DC Fentanyl Citrate (Fentanyl 2ml Vial) 50 mcg PRN Q5MIN PRN IVP MODERATE PAIN 4-6 Last administered on 09/14/20at 16:57; Start 09/14/20 at 12:00; Stop 09/14/20 at 20:14; Status DC Morphine Sulfate (Morphine Sulfate) 1 mg PRN Q10MIN PRN IVP SEVERE PAIN 7-10; Start 09/14/20 at 12:00; Stop 09/14/20 at 20:15; Status DC Ringer's Solution 1,000 ml @ 30 mls/hr Q24H IV Last administered on 09/14/20at 16:31; Start 09/14/20 at 12:00; Stop 09/14/20 at 20:15; Status DC Hydromorphone HCl (Dilaudid) 0.5 mg PRN Q10MIN PRN IVP SEVERE PAIN 7-10, 2nd CHOICE; Start 09/14/20 at 12:00; Stop 09/14/20 at 20:15; Status DC Prochlorperazine Edisylate (Compazine) 5 mg PACU PRN PRN IVP NAUSEA, MRX1 Last administered on 09/14/20at 16:32; Start 09/14/20 at 12:00; Stop 09/14/20 at 20:15; Status DC Info (Icu Electrolyte Protocol) 1 ea CONT PRN PRN MC SEE COMMENTS; Start 09/14/20 at 13:15; Stop 09/17/20 at 07:36; Status DC Ketamine HCl (Ketamine) 50 mg STK-MED ONCE .ROUTE ; Start 09/14/20 at 13:15; Stop 09/14/20 at 13:15; Status DC Succinylcholine Chloride (Anectine) 200 mg STK-MED ONCE .ROUTE ; Start 09/14/20 at 13:15; Stop 09/14/20 at 13:15; Status DC Rocuronium [place] (Zemuron) 50 mg STK-MED ONCE .ROUTE ; Start 09/14/20 at 13:15; Stop 09/14/20 at 13:15; Status DC Vasopressin (Vasostrict) 20 unit STK-MED ONCE .ROUTE ; Start 09/14/20 at 13:15; Stop 09/14/20 at 13:16; Status DC Midazolam HCl (Versed) 2 mg STK-MED ONCE .ROUTE ; Start 09/14/20 at 13:16; Stop 09/14/20 at 13:16; Status DC Piperacillin Sod/ Tazobactam Sod 2.25 gm/Sodium Chloride 50 ml @ 100 mls/hr Q6HRS IV Last administered on 09/15/20at 11:54; Start 09/14/20 at 18:00; Stop 09/15/20 at 11:59; Status DC Bupivacaine HCl/ Epinephrine Bitart (Sensorcaine-Epi 0.25%-1:896681 Mpf) 30 ml STK-MED ONCE .ROUTE Last administered on 09/14/20at 14:33; Start 09/14/20 at 13:38; Stop 09/14/20 at 13:39; Status DC Rocuronium [place] (Zemuron) 50 mg STK-MED ONCE .ROUTE ; Start 09/14/20 at 14:35; Stop 09/14/20 at 14:35; Status DC Sevoflurane (Ultane) 60 ml STK-MED ONCE IH ; Start 09/14/20 at 15:23; Stop 09/14/20 at 15:23; Status DC Neostigmine Methylsulfate (Bloxiverz) 10 mg STK-MED ONCE .ROUTE ; Start 09/14/20 at 15:29; Stop 09/14/20 at 15:29; Status DC Glycopyrrolate (Robinul) 1 mg STK-MED ONCE .ROUTE ; Start 09/14/20 at 15:29; Stop 09/14/20 at 15:29; Status DC Fentanyl Citrate (Fentanyl 2ml Vial) 100 mcg STK-MED ONCE .ROUTE ; Start 09/14/20 at 16:04; Stop 09/14/20 at 16:04; Status DC Phenylephrine HCl (PHENYLEPHRINE in 0.9% NACL PF) 1 mg STK-MED ONCE IV ; Start 09/14/20 at 16:05; Stop 09/14/20 at 16:05; Status DC Prochlorperazine Edisylate (Compazine) 10 mg STK-MED ONCE .ROUTE ; Start 09/14/20 at 16:06; Stop 09/14/20 at 16:06; Status DC Fentanyl Citrate (Fentanyl 2ml Vial) 100 mcg STK-MED ONCE .ROUTE ; Start 09/14/20 at 16:06; Stop 09/14/20 at 16:06; Status DC Fentanyl Citrate (Fentanyl 2ml Vial) 75 mcg PRN Q2HR PRN IVP SEVERE PAIN (2nd Choice) Last administered on 09/17/20at 17:44; Start 09/14/20 at 18:45 Fentanyl Citrate (Fentanyl 2ml Vial) 50 mcg PRN Q2HR PRN IVP MODERATE PAIN (2nd Choice) Last administered on 09/15/20at 05:54; Start 09/14/20 at 18:45 Nicotine (Nicoderm Cq 21mg) 1 patch DAILY TD Last administered on 09/17/20at 08:22; Start 09/15/20 at 12:00 Nicotine (Nicoderm Cq 21mg) 1 patch 1X ONCE TD ; Start 09/15/20 at 12:00; Stop 09/15/20 at 12:01; Status UNV Piperacillin Sod/ Tazobactam Sod 3.375 gm/Sodium Chloride 50 ml @ 100 mls/hr Q6HRS IV Last administered on 09/17/20at 17:57; Start 09/15/20 at 12:00 Potassium Chloride/Water 100 ml @ 100 mls/hr Q1H IV Last administered on at 09:43; Start 09/16/20 at 07:30; Stop 09/16/20 at 09:29; Status DC Pantoprazole Sodium (PROTONIX VIAL for IV PUSH) 40 mg BIDAC IVP Last administered on 09/17/20at 17:43; Start 09/17/20 at 07:30 Potassium Chloride/Water 100 ml @ 50 mls/hr 1X ONCE IV Last administered on 09/17/20at 08:22; Start 09/17/20 at 08:30; Stop 09/17/20 at 10:29; Status DC Info (Non-Icu Electrolyte Protocol) 1 ea CONT PRN PRN MC SEE COMMENTS; Start 09/17/20 at 07:45 Iohexol (Omnipaque 300 Mg/ml) 75 ml 1X ONCE IV Last administered on 09/17/20at 09:45; Start 09/17/20 at 09:45; Stop 09/17/20 at 09:46; Status DC Info (CONTRAST GIVEN -- Rx MONITORING) 1 each PRN DAILY PRN MC SEE COMMENTS; Start 09/17/20 at 09:45; Stop 09/19/20 at 09:44 Iohexol (Omnipaque 300 Mg/ml) 75 ml 1X ONCE IV ; Start 09/17/20 at 09:45; Stop 09/17/20 at 09:47; Status DC Active Scripts Active Reported Motrin Ib (Ibuprofen) 200 Mg Tablet 200 Mg PO PRN Q4-6HRS PRN Naproxen 500 Mg Tablet.dr 500 Mg PO 6XDAY Vitals/I & O Vital Sign - Last 24 Hours 09/16/20 09/16/20 09/16/20 09/16/20 19:38 20:15 20:21 22:00 Pulse 108 Resp 27 25 B/P (MAP) 148/67 (94) Pulse Ox 95 98 O2 Delivery Room Air Room Air Room Air Room Air 09/16/20 09/17/20 09/17/20 09/17/20 23:00 03:00 07:30 08:00 Temp 98.6 98.2 99.0 98.6 98.2 99.0 Pulse 103 104 94 Resp 22 22 20 B/P (MAP) 146/97 (113) 140/94 (109) 144/92 (109) Pulse Ox 97 96 97 O2 Delivery Room Air Room Air Room Air Room Air 09/17/20 09/17/20 11:00 15:30 Temp 98.4 99.3 98.4 99.3 Pulse 102 104 Resp 18 18 B/P (MAP) 148/101 (117) 156/103 (120) Pulse Ox 96 99 O2 Delivery Room Air Room Air Intake and Output 09/16/20 09/16/20 09/17/20 15:00 23:00 07:00 Intake Total 250 ml 4381 ml Output Total 465 ml 425 ml 25 ml Balance -215 ml 3956 ml -25 ml Justifications for Admission Other Justification Abdominal pain due to perforated gastric ulcer JORI RIZZO MD Sep 17, 2020 19:30
[2020-09-17 23:00] VITALS: BP 156/111
[2020-09-18] MEDS: fentaNYL PF VIAL 100 MCG/2 ML VIAL IVP PRN ×11 (01:06→22:46)
[2020-09-18] MEDS: PIPERACILLIN/TAZOBACTAM 3.375 GM in IV NORMAL SALINE 50ML 50 ML IV SCH ×4 (01:06→17:55)
[2020-09-18 03:00] VITALS: BP 138/65
[2020-09-18] MEDS: IV NORMAL SALINE 1000ML BAG 1,000 ML IV SCH ×3 (03:38→20:50)
[2020-09-18 07:30] VITALS: BP 166/108
[2020-09-18] MEDS: NICOTINE 21MG PATCH. TD SCH (07:47)
[2020-09-18] MEDS: PANTOPRAZOLE IV PUSH 40 MG VIAL. IVP SCH ×2 (07:47→16:43)
--- NOTE | 2020-09-18 08:23 | PDOC ---
Infectious Disease Note Subjective: Subjective Patient feels very tired Not sleep well last night Has some abdominal discomfort Denies any fever, nausea, vomiting, shortness of breath or cough Vital Signs: Vital Signs Vital Signs Date Time Temp Pulse Resp B/P (MAP) Pulse Ox O2 Delivery O2 Flow Rate FiO2 09/18/20 07:47 20 96 Room Air 09/18/20 03:00 98.1 89 138/65 (89) 6.0 98.1 Physical Exam: PHYSICAL EXAM GENERAL: Alert, oriented x 3 female lying in bed in no acute distress. HEENT: Normocephalic, atraumatic. Anicteric. NG tube in place. Poor dentition NECK: Supple, no lymphadenopathy. LUNGS: Clear bilaterally. No wheezing. HEART: S1, S2. No gallops or murmurs. ABDOMEN: Soft. Laparoscopic dressing intact, dry, not taken down. Drain in place. Mild tenderness to palpation in the upper quadrant. No rebound or guarding. EXTREMITIES: No edema, no cyanosis. DERMATOLOGIC: Warm, dry, no generalized rash. NEUROLOGIC: Alert, oriented x 3, grossly nonfocal. PSYCHIATRIC: Calm and cooperative. Medications: Inpatient Meds: Medications reviewed. Objective: Assessment: 1. Septic shock from perforated viscus. 2. Acute abdominal pain due to perforated gastric ulcer. 3. Status post robotic-assisted laparoscopic repair of gastric ulcer and French patch on 09/14/2020. 4. Leukocytosis, likely reactive. 5. Anemia, acute blood loss. 6. History of tobaccoism. 7. BARBARA with hyponatremia, resolved. 8. Protein-calorie malnutrition. 9. Mediastinal mass/fullness on chest x-ray Plan: Plan of Care : Cont Zosyn Drain and wound care as directed. CT chest results reviewed Follow up labs and cultures. Continue supportive care. Maintain aspiration precaution. DARYN SHEPPARD MD Sep 18, 2020 08:23
--- NOTE | 2020-09-18 09:11 | PDOC ---
[employer] PROGRESS NOTE Date of Service DOS: DATE: 09/18/20 TIME: 09:08 Chief Complaint Chief Complaint Impression Septic shock Hemodynamic instability BARBARA due to vasomotor nephropathyworsening Acute abdominal pain due to perforated gastric ulcer, concern for uncontained perforation Hyponatremia Tobacco misuse Plan Continue ongoing admission Patient is now status post surgery; improved abdominal pain; surgery team to control NG tube and diet advancement Mediastinal mass: CT scan to be performed today, pulmonary following Antibiotics per infectious disease, possible peritonitis continue Zosyn History of Present Illness History of Present Illness 45-year-old female with past medical history of plaque psoriasis, alcohol use, smoking who presents with 2-week history of epigastric abdominal pain and nausea vomiting. Abdominal pain got worse last Thursday, 9 out of 10 cramping sensation. She states that there is some blood in her vomitus and it in her stool. Her last alcoholic drink was on . She has been taking Aleve and ibuprofen for her pains. She does not take any antiacid medications. She was seen in the ED at [facility] and found on CT scan performed which showed abnormal thickening of the stomach consistent with gastritis as well as small extraluminal air perigastric concerning for gastric ulcer perforation. Patient currently is complaining of epigastric abdominal pain and appears to be very much in distress. 09/18/20 Patient seen and examined at bedside -Patient's only complaint this morning was wanting her NG tube out she also was rather lethargic on my interview CT scan showed no mass or lymphadenopathy Management of NG tube per general surgery team; patient says she thinks it is coming out today Possible discharge in the next day or 2 Will transition to oral medications when deemed appropriate by team surgery Plan of care discussed bedside RN 09/17/2020 Patient seen and examined at bedside Patient reports that her abdominal pain continues to improve says she was just a little sore from walking around. CT scan to evaluate mediastinal mass plan for today; echo performed this morning Continue Zosyn; Diet per surgical team Continue IV Protonix Leukocytosis improved Plan of care discussed with bedside RN 09/16/2020 continue Zosyn to 3.375 q. 6 hours Status post robotic-assisted laparoscopic repair of gastric ulcer and French patch on 09/14/2020. Leukocytosis, likely reactive.Recent postoperative pt Patient with labile blood pressures hanging in the low 70s to 80s systolics. Creatinine increased from 1.2-2.6. transferred to the ICU for vasopressor and possible surgical intervention. 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 Continue IV fluids IV electrolyte replacement as needed IV Protonix Serial abdominal exams Contraindicated for DVT prophylaxis mediastinal lymphadenopathy, mediastinal mass, or enlargement/tortuosity of the aorta. CT of the chest to further evaluate . / PULM CONSULT ECHO 33 min cc time 09/15/2020 Patient with labile blood pressures hanging in the low 70s to 80s systolics. Creatinine increased from 1.2-2.6. transferred to the ICU for vasopressor and possible surgical intervention. Patient's chart, labs, images were reviewed and discussed with RN Septic shock Hemodynamic instability BARBARA due to vasomotor nephropathyworsening Acute abdominal pain due to perforated gastric ulcer, concern for uncontained perforation Hyponatremia Tobacco misuse Admit to medicine for further management General surgery consult Strict n.p.o. Continue IV fluids IV electrolyte replacement as needed IV Protonix Serial abdominal exams Contraindicated for DVT prophylaxis 33 min cc time Vitals/I&O Vitals/I&O: Vital Signs Date Time Temp Pulse Resp B/P (MAP) Pulse Ox O2 Delivery O2 Flow Rate FiO2 09/18/20 07:47 20 96 Room Air 09/18/20 07:30 98.1 98 166/108 (127) 98.1 09/18/20 03:00 6.0 I & O 09/17/20 09/17/20 09/18/20 15:00 23:00 07:00 Intake Total 0 ml 200 ml Output Total 30 ml 130 ml Balance 0 ml -30 ml 70 ml Physical Exam Physical Exam: GENERAL: Alert, oriented x 3 female lying in bed in no acute distress. HEENT: Normocephalic, atraumatic. Anicteric. NG tube in place. Poor dentition NECK: Supple, no lymphadenopathy. LUNGS: Clear bilaterally. No wheezing. HEART: S1, S2. No gallops or murmurs. ABDOMEN: Soft. Laparoscopic dressing intact, dry, not taken down. Drain in place. Mild tenderness to palpation in the upper quadrant. No rebound or guarding. EXTREMITIES: No edema, no cyanosis. DERMATOLOGIC: Warm, dry, no generalized rash. NEUROLOGIC: Alert, oriented x 3, grossly nonfocal. PSYCHIATRIC: Calm and cooperative. General: Alert, Oriented X3, moderate distress Heart: Regular rate, Normal S1, Normal S2 Lungs: Clear Abdomen: Normal bowel sounds, Other (mild tenderness throughout likely 2/2 recent surgery) Extremities: No cyanosis, No edema Skin: No rashes, No significant lesion Comment Review of Relevant I have reviewed the following items joel (where applicable) has been applied. Medications: Current Medications Medications (Trade) Dose Ordered Sig/Mouna Route PRN Reason Start Time Stop Time Status Last Admin Dose Admin Iohexol (Omnipaque 300 Mg/ml) 75 ml 1X ONCE IV 09/17/20 09:45 09/17/20 09:46 DC 09/17/20 09:45 Justifications for Admission Other Justification Abdominal pain due to perforated gastric ulcer LORENZO WONG MD Sep 18, 2020 09:11
[2020-09-18 11:00] VITALS: BP 149/98
[2020-09-18] MEDS: DICYCLOMINE 20 MG/2 ML VIAL. IM PRN (11:53)
--- NOTE | 2020-09-18 12:04 | NUR ---
Nurse's note: The patient complained of increasing abdominal pain. Upon assessment, the abdomen is distended, hypoactive bowel sounds, direct tenderness on left upper quadrant, no rebound tenderness. The right upper quadrant STONE drain site is leaking serous fluid. She is afebrile, VS are stable. Paged Yael Cotsa APRN of surgery service at [phone]. She came to the bedside, informed of physical findings, new order received. We will continue to monitor.
[2020-09-18] MEDS: SUCRALFATE 1 GM/10 ML ORAL.SUSP. NG SCH ×3 (12:55→20:49)
--- NOTE | 2020-09-18 12:57 | PDOC ---
SURGICAL PROGRESS NOTE DATE: 09/18/20 TIME: 12:54 Subjective more abdominal pain no nausea Vital Signs Vital Signs Date Time Temp Pulse Resp B/P (MAP) Pulse Ox O2 Delivery O2 Flow Rate FiO2 09/18/20 12:17 20 98 Room Air 09/18/20 11:00 97.8 94 149/98 (115) 97.8 09/18/20 03:00 6.0 I&O Intake and Output 09/18/20 07:00 Intake Total 200 ml Output Total 160 ml Balance 40 ml Intake Oral 200 ml Drainage Total 160 ml # Voids 1 General: Cooperative, Other (restless ) HEENT: Other (ng clamped ) Abdomen: Soft, Other (ttp upper abdomen, drain serous ) Labs Laboratory Tests Test 09/17/20 05:50 White Blood Count 15.3 x10^3/uL (4.0-11.0) Red Blood Count 3.07 x10^6/uL (3.50-5.40) Hemoglobin 9.9 g/dL (12.0-15.5) Hematocrit 30.0 % (36.0-47.0) Mean Corpuscular Volume 98 fL (79-100) Mean Corpuscular Hemoglobin 32 pg (25-35) Mean Corpuscular Hemoglobin Concent 33 g/dL (31-37) Red Cell Distribution Width 14.7 % (11.5-14.5) Platelet Count 179 x10^3/uL (140-400) Neutrophils (%) (Auto) 88 % (31-73) Lymphocytes (%) (Auto) 3 % (24-48) Monocytes (%) (Auto) 8 % (0-9) Eosinophils (%) (Auto) 1 % (0-3) Basophils (%) (Auto) 0 % (0-3) Neutrophils # (Auto) 13.5 x10^3/uL (1.8-7.7) Lymphocytes # (Auto) 0.4 x10^3/uL (1.0-4.8) Monocytes # (Auto) 1.2 x10^3/uL (0.0-1.1) Eosinophils # (Auto) 0.1 x10^3/uL (0.0-0.7) Basophils # (Auto) 0.0 x10^3/uL (0.0-0.2) Sodium Level 139 mmol/L (136-145) Potassium Level 3.3 mmol/L (3.5-5.1) Chloride Level 106 mmol/L (98-107) Carbon Dioxide Level 18 mmol/L (21-32) Anion Gap 15 (6-14) Blood Urea Nitrogen 9 mg/dL (7-20) Creatinine 0.7 mg/dL (0.6-1.0) Estimated GFR (Cockcroft-Gault) 90.5 Glucose Level 74 mg/dL (70-99) Calcium Level 7.8 mg/dL (8.5-10.1) Triglycerides Level 65 mg/dL (0-150) Cholesterol Level 78 mg/dL (0-200) LDL Cholesterol, Calculated 46 mg/dL (0-100) VLDL Cholesterol, Calculated 13 mg/dL (0-40) Non-HDL Cholesterol Calculated 59 mg/dL (0-129) HDL Cholesterol 19 mg/dL (40-60) Cholesterol/HDL Ratio 4.1 Problem List with more pain ng back to LIS will add carafate check CBC continue PPI, abx Justicifation of Admission Dx: Justifications for Admission: Justification of Admission Dx: Yes Sepsis: Hemodynamic Instability MARTIN GARCIA [employer] Sep 18, 2020 12:57
[2020-09-18 13:49] LABS: BASO % 0 % (0-3); EOS # 0.1 x10^3/uL (0.0-0.7); EOS % 1 % (0-3); HEMATOCRIT 34.4 % (36.0-47.0); HEMOGLOBIN 11.4 g/dL (12.0-15.5); LYMPH # 0.5 x10^3/uL (1.0-4.8); LYMPH % 4 % (24-48); MEAN CORPUSCULAR HEMOGLOBIN 32 pg (25-35); MEAN CORPUSCULAR HGB CONC 33 g/dL (31-37); MEAN CORPUSCULAR VOLUME 97 fL (79-100); MONO # 1.7 x10^3/uL (0.0-1.1); MONO % 13 % (0-9); NEUT # 11.1 x10^3/uL (1.8-7.7); NEUT % 83 % (31-73); PLATELET COUNT 227 x10^3/uL (140-400); RED BLOOD COUNT 3.55 x10^6/uL (3.50-5.40); RED CELL DISTRIBUTION WIDTH 14.9 % (11.5-14.5); WHITE BLOOD COUNT 13.4 x10^3/uL (4.0-11.0)
[2020-09-18] MEDS ORDERED: PHENOL ORAL SPRAY 177ML BOTTLE. PO PRN (15:00)
[2020-09-18 15:30] VITALS: BP 144/92
[2020-09-18 19:00] VITALS: BP_SYST 150; BP_SYST 165; BP_DIAS 107; BP_DIAS 78
[2020-09-18 23:12] VITALS: BP 155/103
[2020-09-19] MEDS: fentaNYL PF VIAL 100 MCG/2 ML VIAL IVP PRN ×10 (00:58→22:16)
[2020-09-19] MEDS: PIPERACILLIN/TAZOBACTAM 3.375 GM in IV NORMAL SALINE 50ML 50 ML IV SCH ×4 (00:58→18:33)
[2020-09-19 02:57] VITALS: BP 148/88
[2020-09-19] MEDS: IV NORMAL SALINE 1000ML BAG 1,000 ML IV SCH ×3 (05:29→19:50)
[2020-09-19 07:00] VITALS: BP 140/88
[2020-09-19] MEDS: PANTOPRAZOLE IV PUSH 40 MG VIAL. IVP SCH ×2 (07:58→17:10)
[2020-09-19] MEDS: SUCRALFATE 1 GM/10 ML ORAL.SUSP. NG SCH ×4 (07:58→19:49)
[2020-09-19] MEDS: NICOTINE 21MG PATCH. TD SCH (07:59)
--- NOTE | 2020-09-19 10:07 | PDOC ---
Infectious Disease Note Subjective: Subjective Patient feels better Has some abdominal discomfort Denies any fever, nausea, vomiting, shortness of breath or cough occ loose bm Vital Signs: Vital Signs Vital Signs Date Time Temp Pulse Resp B/P (MAP) Pulse Ox O2 Delivery O2 Flow Rate FiO2 09/19/20 07:58 19 98 Room Air 09/19/20 07:00 90 140/88 (105) 09/19/20 02:57 98.0 98.0 Physical Exam: PHYSICAL EXAM GENERAL: Alert, oriented x 3 female lying in bed in no acute distress. HEENT: Normocephalic, atraumatic. Anicteric. NG tube in place. Poor dentition NECK: Supple, no lymphadenopathy. LUNGS: Clear bilaterally. No wheezing. HEART: S1, S2. No gallops or murmurs. ABDOMEN: Soft. Laparoscopic dressing intact, dry, not taken down. Drain in place. Mild tenderness to palpation in the upper quadrant. No rebound or guarding. EXTREMITIES: No edema, no cyanosis. DERMATOLOGIC: Warm, dry, no generalized rash. NEUROLOGIC: Alert, oriented x 3, grossly nonfocal. PSYCHIATRIC: Calm and cooperative. Medications: Inpatient Meds: Medications reviewed. Labs: Lab Laboratory Tests Test 09/18/20 13:20 White Blood Count 13.4 x10^3/uL (4.0-11.0) Red Blood Count 3.55 x10^6/uL (3.50-5.40) Hemoglobin 11.4 g/dL (12.0-15.5) Hematocrit 34.4 % (36.0-47.0) Mean Corpuscular Volume 97 fL (79-100) Mean Corpuscular Hemoglobin 32 pg (25-35) Mean Corpuscular Hemoglobin Concent 33 g/dL (31-37) Red Cell Distribution Width 14.9 % (11.5-14.5) Platelet Count 227 x10^3/uL (140-400) Neutrophils (%) (Auto) 83 % (31-73) Lymphocytes (%) (Auto) 4 % (24-48) Monocytes (%) (Auto) 13 % (0-9) Eosinophils (%) (Auto) 1 % (0-3) Basophils (%) (Auto) 0 % (0-3) Neutrophils # (Auto) 11.1 x10^3/uL (1.8-7.7) Lymphocytes # (Auto) 0.5 x10^3/uL (1.0-4.8) Monocytes # (Auto) 1.7 x10^3/uL (0.0-1.1) Eosinophils # (Auto) 0.1 x10^3/uL (0.0-0.7) Basophils # (Auto) 0.0 x10^3/uL (0.0-0.2) Objective: Assessment: 1. Septic shock from perforated viscus. 2. Acute abdominal pain due to perforated gastric ulcer. 3. Status post robotic-assisted laparoscopic repair of gastric ulcer and French patch on 09/14/2020. 4. Leukocytosis, likely reactive. 5. Anemia, acute blood loss. 6. History of tobaccoism. 7. BARBARA with hyponatremia, resolved. 8. Protein-calorie malnutrition. 9. Mediastinal mass/fullness on chest x-ray Plan: Plan of Care Cont Zosyn Drain and wound care as directed. CT chest results reviewed If diarrhea continues check for c diff Follow up labs and cultures. Continue supportive care. Maintain aspiration precaution. DARYN SHEPPARD MD Sep 19, 2020 10:07
[2020-09-19 11:00] VITALS: BP 145/93
--- NOTE | 2020-09-19 11:03 | PDOC ---
[employer] PROGRESS NOTE Date of Service DOS: DATE: 09/19/20 TIME: 10:59 Chief Complaint Chief Complaint Impression Septic shock Hemodynamic instability BARBARA due to vasomotor nephropathy Acute abdominal pain due to perforated gastric ulcer s/p surgical intervention Hyponatremia Tobacco misuse Plan Continue ongoing admission Patient is now status post surgery; improved abdominal pain; surgery team to control NG tube and diet advancement Mediastinal mass: CT scan performed; due for PET scan however patient's insurance will not approve it while inpatient she will need to do this outpatient and likely [facility] Antibiotics per infectious disease, possible peritonitis continue Zosyn History of Present Illness History of Present Illness 45-year-old female with past medical history of plaque psoriasis, alcohol use, smoking who presents with 2-week history of epigastric abdominal pain and nausea vomiting. Abdominal pain got worse last Thursday, 9 out of 10 cramping sensation. She states that there is some blood in her vomitus and it in her stool. Her last alcoholic drink was on . She has been taking Aleve and ibuprofen for her pains. She does not take any antiacid medications. She was seen in the ED at [facility] and found on CT scan performed which showed abnormal thickenin g of the stomach consistent with gastritis as well as small extraluminal air perigastric concerning for gastric ulcer perforation. Patient currently is complaining of epigastric abdominal pain and appears to be very much in distress. 09/19/20 Patient seen and examined at bedside Reports overall feeling better today; says she was very fatigued the past 2 days but is feeling more energized today. Throat pain is improved with spray. Still has mild abdominal pain but again says notably improved NG tube with fair amount of secretions still NG tube management per surgical team Will add TPN today as patient has not had any nutrition in over 4 days Patient reports multiple episodes of diarrhea the past few days; reports 7 episodes yesterday. Will check C. difficile Plan of care discussed with bedside nurse 09/18/20 Patient seen and examined at bedside -Patient's only complaint this morning was wanting her NG tube out she also was rather lethargic on my interview CT scan showed no mass or lymphadenopathy Management of NG tube per general surgery team; patient says she thinks it is coming out today Possible discharge in the next day or 2 Will transition to oral medications when deemed appropriate by team surgery Plan of care discussed bedside RN 09/17/2020 Patient seen and examined at bedside Patient reports that her abdominal pain continues to improve says she was just a little sore from walking around. CT scan to evaluate mediastinal mass plan for today; echo performed this morning Continue Zosyn; Diet per surgical team Continue IV Protonix Leukocytosis improved Plan of care discussed with bedside RN 09/16/2020 continue Zosyn to 3.375 q. 6 hours Status post robotic-assisted laparoscopic repair of gastric ulcer and French patch on 09/14/2020. Leukocytosis, likely reactive.Recent postoperative pt Patient with labile blood pressures hanging in the low 70s to 80s systolics. Creatinine increased from 1.2-2.6. transferred to the ICU for vasopressor and possible surgical intervention. 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 Continue IV fluids IV electrolyte replacement as needed IV Protonix Serial abdominal exams Contraindicated for DVT prophylaxis mediastinal lymphadenopathy, mediastinal mass, or enlargement/tortuosity of the aorta. CT of the chest to further evaluate . / PULM CONSULT ECHO 33 min cc time 09/15/2020 Patient with labile blood pressures hanging in the low 70s to 80s systolics. Creatinine increased from 1.2-2.6. transferred to the ICU for vasopressor and possible surgical intervention. Patient's chart, labs, images were reviewed and discussed with RN Septic shock Hemodynamic instability BARBARA due to vasomotor nephropathyworsening Acute abdominal pain due to perforated gastric ulcer, concern for uncontained perforation Hyponatremia Tobacco misuse Admit to medicine for further management General surgery consult Strict n.p.o. Continue IV fluids IV electrolyte replacement as needed IV Protonix Serial abdominal exams Contraindicated for DVT prophylaxis 33 min cc time Vitals/I&O Vitals/I&O: Vital Signs Date Time Temp Pulse Resp B/P (MAP) Pulse Ox O2 Delivery O2 Flow Rate FiO2 09/19/20 10:18 14 98 Room Air 09/19/20 07:00 90 140/88 (105) 09/19/20 02:57 98.0 98.0 l I & O 09/18/20 09/18/20 09/19/20 15:00 23:00 07:00 Intake Total 0 ml 0 ml 0 ml Output Total 460 ml Balance -460 ml 0 ml 0 ml Physical Exam Physical Exam: GENERAL: Alert, oriented x 3 female lying in bed in no acute distress. HEENT: Normocephalic, atraumatic. Anicteric. NG tube in place. Poor dentition NECK: Supple, no lymphadenopathy. LUNGS: Clear bilaterally. No wheezing. HEART: S1, S2. No gallops or murmurs. ABDOMEN: Soft. Laparoscopic dressing intact, dry, not taken down. Drain in place. Mild tenderness to palpation in the upper quadrant. No rebound or guarding. EXTREMITIES: No edema, no cyanosis. DERMATOLOGIC: Warm, dry, no generalized rash. NEUROLOGIC: Alert, oriented x 3, grossly nonfocal. PSYCHIATRIC: Calm and cooperative. General: Alert, Oriented X3, Cooperative, mild distress Heart: Regular rate, Normal S1, Normal S2 Lungs: Clear Abdomen: Soft, Other (serous drainage) Extremities: No cyanosis, No edema Skin: No rashes, No significant lesion Labs Labs: Laboratory Tests Test 09/18/20 13:20 White Blood Count 13.4 x10^3/uL (4.0-11.0) Red Blood Count 3.55 x10^6/uL (3.50-5.40) Hemoglobin 11.4 g/dL (12.0-15.5) Hematocrit 34.4 % (36.0-47.0) Mean Corpuscular Volume 97 fL (79-100) Mean Corpuscular Hemoglobin 32 pg (25-35) Mean Corpuscular Hemoglobin Concent 33 g/dL (31-37) Red Cell Distribution Width 14.9 % (11.5-14.5) Platelet Count 227 x10^3/uL (140-400) Neutrophils (%) (Auto) 83 % (31-73) Lymphocytes (%) (Auto) 4 % (24-48) Monocytes (%) (Auto) 13 % (0-9) Eosinophils (%) (Auto) 1 % (0-3) Basophils (%) (Auto) 0 % (0-3) Neutrophils # (Auto) 11.1 x10^3/uL (1.8-7.7) Lymphocytes # (Auto) 0.5 x10^3/uL (1.0-4.8) Monocytes # (Auto) 1.7 x10^3/uL (0.0-1.1) Eosinophils # (Auto) 0.1 x10^3/uL (0.0-0.7) Basophils # (Auto) 0.0 x10^3/uL (0.0-0.2) Comment Review of Relevant I have reviewed the following items joel (where applicable) has been applied. Medications: Current Medications Medications (Trade) Dose Ordered Sig/Mouna Route PRN Reason Start Time Stop Time Status Last Admin Dose Admin Sucralfate (Carafate Oral Susp) 1 gm QIDACHS NG 09/18/20 12:45 09/19/20 07:58 Phenol (Chloraseptic) 1 spray PRN Q2HR PRN PO SORE THROAT 09/18/20 15:00 09/18/20 16:43 Justifications for Admission Other Justification Abdominal pain due to perforated gastric ulcer LORENZO WONG MD Sep 19, 2020 11:03
[2020-09-19 11:23] LABS: BASO % 0 % (0-3); EOS # 0.1 x10^3/uL (0.0-0.7); EOS % 1 % (0-3); LYMPH # 0.8 x10^3/uL (1.0-4.8); LYMPH % 6 % (24-48); MEAN CORPUSCULAR HEMOGLOBIN 32 pg (25-35); MEAN CORPUSCULAR HGB CONC 33 g/dL (31-37); MEAN CORPUSCULAR VOLUME 96 fL (79-100); MONO # 1.4 x10^3/uL (0.0-1.1); MONO % 11 % (0-9); NEUT # 9.8 x10^3/uL (1.8-7.7); NEUT % 81 % (31-73); PLATELET COUNT 246 x10^3/uL (140-400); RED BLOOD COUNT 3.13 x10^6/uL (3.50-5.40); RED CELL DISTRIBUTION WIDTH 14.7 % (11.5-14.5); WHITE BLOOD COUNT 12.1 x10^3/uL (4.0-11.0)
[2020-09-19 11:27] LABS: ALBUMIN 1.5 g/dL (3.4-5.0); ALBUMIN/GLOBULIN RATIO 0.4 (1.0-1.7); CALCIUM 7.8 mg/dL (8.5-10.1); CREATININE 0.5 mg/dL (0.6-1.0); GFR 133.4; TOTAL BILIRUBIN 0.4 mg/dL (0.2-1.0); TOTAL PROTEIN 5.1 g/dL (6.4-8.2)
[2020-09-19 11:34] LABS: POTASSIUM 2.6 mmol/L (3.5-5.1)
[2020-09-19] MEDS: TPN PER PHARMACY MC PRN (11:44)
--- NOTE | 2020-09-19 12:02 | NUR ---
Pharmacy TPN Dosing Note S: ROD NICHOLSON is a 45 year old F Currently receiving Central Continuous TPN started 09/19/20 B:Pertinent PMH: NPO, PERFORATED GASTRIC ULCERS Height: 5 feet, 9 inches Weight: 92.227860 kg Current diet: LABS: Sodium: 139 Potassium: 3.3 Chloride: 106 Calcium: 7.8 Corrected Calcium: 9.64 Magnesium: 1.9 CO2: 18 SCr: 0.7 Glucose: 74 Albumin: 1.7 AST: ALT: TPN FORMULA: TPN TYPE: Central Continuous AMINO ACIDS: 70 gm DEXTROSE: 240 gm LIPIDS: 30 gm SODIUM CHLORIDE: mEq SODIUM ACETATE: 90 mEq SODIUM PHOSPHATE: mmol POTASSIUM CHLORIDE: 50 mEq POTASSIUM ACETATE: mEq POTASSIUM PHOSPHATE: 13.6 mmol MAGNESIUM: 10 mEq CALCIUM: 10 mEq INSULIN: units MULTIPLE VITAMIN: 5 ml TRACE ELEMENTS: 1 ml(s) TPN PLAN: DEXTROSE 240GM/AA 70 GM/LIPID 30 GM PER DIETARY. BMP/PHOS/MAG LEVEL IN AM R: Begin TPN AT 63ML/HR Will monitor electrolytes, glucose, and tolerance to TPN. CARLOS POLLARD [facility], 09/19/20 [id number]
--- NOTE | 2020-09-19 12:03 | NUR ---
SW following. Discussed with RN, pt from home, room air, NPO, rapid COVID-19 negative. Pt likely starting PPN or TPN as has been NPO for some time now. RN advised no SW needs at this time. SW will continue to follow.
[2020-09-19] MEDS: POTASSIUM CHLORIDE 20MEQ 100 ML IV SCH ×4 (12:19→17:10)
[2020-09-19 15:00] VITALS: BP 163/98
--- NOTE | 2020-09-19 16:54 | PDOC ---
SURGICAL PROGRESS NOTE DATE: 09/19/20 TIME: 16:53 Subjective Patient feeling better today less pain Vital Signs Vital Signs Date Time Temp Pulse Resp B/P (MAP) Pulse Ox O2 Delivery O2 Flow Rate FiO2 09/19/20 15:00 99.3 97 18 163/98 (119) 99 Room Air 99.3 I&O Intake and Output 09/19/20 07:00 Intake Total 0 ml Output Total 460 ml Balance -460 ml Intake Oral 0 ml Gastric Drainage Total 400 ml Drainage Total 60 ml # Voids 3 # Bowel Movements 1 PATIENT HAS A BOWIE: No General: Alert, Oriented X3, Cooperative, mild distress Abdomen: Normal bowel sounds, Soft, Other (Mild incisional tenderness wounds clean dry and intact STONE drain intact with serous drainage) Labs Laboratory Tests Test 09/18/20 13:20 09/19/20 11:04 White Blood Count 13.4 x10^3/uL (4.0-11.0) 12.1 x10^3/uL (4.0-11.0) Red Blood Count 3.55 x10^6/uL (3.50-5.40) 3.13 x10^6/uL (3.50-5.40) Hemoglobin 11.4 g/dL (12.0-15.5) 10.0 g/dL (12.0-15.5) Hematocrit 34.4 % (36.0-47.0) 30.0 % (36.0-47.0) Mean Corpuscular Volume 97 fL (79-100) 96 fL (79-100) Mean Corpuscular Hemoglobin 32 pg (25-35) 32 pg (25-35) Mean Corpuscular Hemoglobin Concent 33 g/dL (31-37) 33 g/dL (31-37) Red Cell Distribution Width 14.9 % (11.5-14.5) 14.7 % (11.5-14.5) Platelet Count 227 x10^3/uL (140-400) 246 x10^3/uL (140-400) Neutrophils (%) (Auto) 83 % (31-73) 81 % (31-73) Lymphocytes (%) (Auto) 4 % (24-48) 6 % (24-48) Monocytes (%) (Auto) 13 % (0-9) 11 % (0-9) Eosinophils (%) (Auto) 1 % (0-3) 1 % (0-3) Basophils (%) (Auto) 0 % (0-3) 0 % (0-3) Neutrophils # (Auto) 11.1 x10^3/uL (1.8-7.7) 9.8 x10^3/uL (1.8-7.7) Lymphocytes # (Auto) 0.5 x10^3/uL (1.0-4.8) 0.8 x10^3/uL (1.0-4.8) Monocytes # (Auto) 1.7 x10^3/uL (0.0-1.1) 1.4 x10^3/uL (0.0-1.1) Eosinophils # (Auto) 0.1 x10^3/uL (0.0-0.7) 0.1 x10^3/uL (0.0-0.7) Basophils # (Auto) 0.0 x10^3/uL (0.0-0.2) 0.0 x10^3/uL (0.0-0.2) Sodium Level 138 mmol/L (136-145) Potassium Level 2.6 mmol/L (3.5-5.1) Chloride Level 104 mmol/L (98-107) Carbon Dioxide Level 21 mmol/L (21-32) Anion Gap 13 (6-14) Blood Urea Nitrogen 1 mg/dL (7-20) Creatinine 0.5 mg/dL (0.6-1.0) Estimated GFR (Cockcroft-Gault) 133.4 BUN/Creatinine Ratio 2 (6-20) Glucose Level 76 mg/dL (70-99) Calcium Level 7.8 mg/dL (8.5-10.1) Total Bilirubin 0.4 mg/dL (0.2-1.0) Aspartate Amino Transf (AST/SGOT) 9 U/L (15-37) Alanine Aminotransferase (ALT/SGPT) 8 U/L (14-59) Alkaline Phosphatase 50 U/L (46-116) Total Protein 5.1 g/dL (6.4-8.2) Albumin 1.5 g/dL (3.4-5.0) Albumin/Globulin Ratio 0.4 (1.0-1.7) Laboratory Tests Test 09/19/20 11:04 White Blood Count 12.1 x10^3/uL (4.0-11.0) Red Blood Count 3.13 x10^6/uL (3.50-5.40) Hemoglobin 10.0 g/dL (12.0-15.5) Hematocrit 30.0 % (36.0-47.0) Mean Corpuscular Volume 96 fL (79-100) Mean Corpuscular Hemoglobin 32 pg (25-35) Mean Corpuscular Hemoglobin Concent 33 g/dL (31-37) Red Cell Distribution Width 14.7 % (11.5-14.5) Platelet Count 246 x10^3/uL (140-400) Neutrophils (%) (Auto) 81 % (31-73) Lymphocytes (%) (Auto) 6 % (24-48) Monocytes (%) (Auto) 11 % (0-9) Eosinophils (%) (Auto) 1 % (0-3) Basophils (%) (Auto) 0 % (0-3) Neutrophils # (Auto) 9.8 x10^3/uL (1.8-7.7) Lymphocytes # (Auto) 0.8 x10^3/uL (1.0-4.8) Monocytes # (Auto) 1.4 x10^3/uL (0.0-1.1) Eosinophils # (Auto) 0.1 x10^3/uL (0.0-0.7) Basophils # (Auto) 0.0 x10^3/uL (0.0-0.2) Sodium Level 138 mmol/L (136-145) Potassium Level 2.6 mmol/L (3.5-5.1) Chloride Level 104 mmol/L (98-107) Carbon Dioxide Level 21 mmol/L (21-32) Anion Gap 13 (6-14) Blood Urea Nitrogen 1 mg/dL (7-20) Creatinine 0.5 mg/dL (0.6-1.0) Estimated GFR (Cockcroft-Gault) 133.4 BUN/Creatinine Ratio 2 (6-20) Glucose Level 76 mg/dL (70-99) Calcium Level 7.8 mg/dL (8.5-10.1) Total Bilirubin 0.4 mg/dL (0.2-1.0) Aspartate Amino Transf (AST/SGOT) 9 U/L (15-37) Alanine Aminotransferase (ALT/SGPT) 8 U/L (14-59) Alkaline Phosphatase 50 U/L (46-116) Total Protein 5.1 g/dL (6.4-8.2) Albumin 1.5 g/dL (3.4-5.0) Albumin/Globulin Ratio 0.4 (1.0-1.7) Assessment/Plan Status post oversewing of gastric ulcer with French patch Plan on clamping NG tube tomorrow morning Justicifation of Admission Dx: Justifications for Admission: Justification of Admission Dx: Yes Sepsis: Hemodynamic Instability JHONY NÚÑEZ MD Sep 19, 2020 16:54
[2020-09-19 19:00] VITALS: BP 152/92
[2020-09-19] MEDS ORDERED: [UNRECOGNIZED DRUG - OTHER] IV SCH (22:00)
[2020-09-19] MEDS ORDERED: TOTAL PARENTERAL NUTRITION IV SCH (22:00)
[2020-09-19] MEDS ORDERED: DEXTROSE 70% IV SCH (22:00)
[2020-09-19] MEDS ORDERED: AMINO ACID IV SCH (22:00)
[2020-09-19 23:26] VITALS: BP 164/106
[2020-09-20] MEDS: fentaNYL PF VIAL 100 MCG/2 ML VIAL IVP PRN ×9 (01:01→23:13)
[2020-09-20] MEDS: PIPERACILLIN/TAZOBACTAM 3.375 GM in IV NORMAL SALINE 50ML 50 ML IV SCH ×5 (01:01→23:13)
[2020-09-20 03:14] VITALS: BP 147/89
[2020-09-20] MEDS: IV NORMAL SALINE 1000ML BAG 1,000 ML IV SCH ×3 (05:56→20:14)
[2020-09-20 07:00] VITALS: BP 138/88
[2020-09-20 07:13] LABS: CALCIUM 7.6 mg/dL (8.5-10.1); CREATININE 0.4 mg/dL (0.6-1.0); GFR 172.6; MAGNESIUM 1.2 mg/dL (1.8-2.4); PHOSPHORUS 1.7 mg/dL (2.6-4.7)
[2020-09-20 07:34] LABS: POTASSIUM 2.7 mmol/L (3.5-5.1)
[2020-09-20] MEDS: SUCRALFATE 1 GM/10 ML ORAL.SUSP. NG SCH ×4 (08:18→20:20)
[2020-09-20] MEDS: POTASSIUM CHLORIDE 20MEQ 100 ML IV SCH ×2 (08:19→10:55)
[2020-09-20] MEDS: NICOTINE 21MG PATCH. TD SCH (08:19)
--- NOTE | 2020-09-20 08:57 | PDOC ---
Infectious Disease Note Subjective: Subjective Patient feels tired Patient has abdominal discomfort which comes and goes and diarrhea Denies any fever, nausea, vomiting, shortness of breath or cough Vital Signs: Vital Signs Vital Signs Date Time Temp Pulse Resp B/P (MAP) Pulse Ox O2 Delivery O2 Flow Rate FiO2 09/20/20 08:17 18 Room Air 09/20/20 07:00 98.2 76 138/88 (105) 96 98.2 Physical Exam: PHYSICAL EXAM GENERAL: Alert, oriented x 3 female lying in bed in no acute distress. HEENT: Normocephalic, atraumatic. Anicteric. NG tube in place. Poor dentition NECK: Supple, no lymphadenopathy. LUNGS: Clear bilaterally. No wheezing. HEART: S1, S2. No gallops or murmurs. ABDOMEN: Soft. Laparoscopic dressing intact, dry, not taken down. Drain in place. Mild tenderness to palpation in the upper quadrant. No rebound or guarding. EXTREMITIES: No edema, no cyanosis. DERMATOLOGIC: Warm, dry, no generalized rash. NEUROLOGIC: Alert, oriented x 3, grossly nonfocal. PSYCHIATRIC: Calm and cooperative. Medications: Inpatient Meds: Medications reviewed. Labs: Lab Laboratory Tests Test 09/19/20 11:04 09/19/20 20:20 09/20/20 06:40 White Blood Count 12.1 x10^3/uL (4.0-11.0) Red Blood Count 3.13 x10^6/uL (3.50-5.40) Hemoglobin 10.0 g/dL (12.0-15.5) Hematocrit 30.0 % (36.0-47.0) Mean Corpuscular Volume 96 fL (79-100) Mean Corpuscular Hemoglobin 32 pg (25-35) Mean Corpuscular Hemoglobin Concent 33 g/dL (31-37) Red Cell Distribution Width 14.7 % (11.5-14.5) Platelet Count 246 x10^3/uL (140-400) Neutrophils (%) (Auto) 81 % (31-73) Lymphocytes (%) (Auto) 6 % (24-48) Monocytes (%) (Auto) 11 % (0-9) Eosinophils (%) (Auto) 1 % (0-3) Basophils (%) (Auto) 0 % (0-3) Neutrophils # (Auto) 9.8 x10^3/uL (1.8-7.7) Lymphocytes # (Auto) 0.8 x10^3/uL (1.0-4.8) Monocytes # (Auto) 1.4 x10^3/uL (0.0-1.1) Eosinophils # (Auto) 0.1 x10^3/uL (0.0-0.7) Basophils # (Auto) 0.0 x10^3/uL (0.0-0.2) Sodium Level 138 mmol/L (136-145) 136 mmol/L (136-145) Potassium Level 2.6 mmol/L (3.5-5.1) 3.1 mmol/L (3.5-5.1) 2.7 mmol/L (3.5-5.1) Chloride Level 104 mmol/L (98-107) 103 mmol/L (98-107) Carbon Dioxide Level 21 mmol/L (21-32) 23 mmol/L (21-32) Anion Gap 13 (6-14) 10 (6-14) Blood Urea Nitrogen 1 mg/dL (7-20) 1 mg/dL (7-20) Creatinine 0.5 mg/dL (0.6-1.0) 0.4 mg/dL (0.6-1.0) Estimated GFR (Cockcroft-Gault) 133.4 172.6 BUN/Creatinine Ratio 2 (6-20) Glucose Level 76 mg/dL (70-99) 145 mg/dL (70-99) Calcium Level 7.8 mg/dL (8.5-10.1) 7.6 mg/dL (8.5-10.1) Total Bilirubin 0.4 mg/dL (0.2-1.0) Aspartate Amino Transf (AST/SGOT) 9 U/L (15-37) Alanine Aminotransferase (ALT/SGPT) 8 U/L (14-59) Alkaline Phosphatase 50 U/L (46-116) Total Protein 5.1 g/dL (6.4-8.2) Albumin 1.5 g/dL (3.4-5.0) Albumin/Globulin Ratio 0.4 (1.0-1.7) Phosphorus Level 1.7 mg/dL (2.6-4.7) Magnesium Level 1.2 mg/dL (1.8-2.4) Objective: Assessment: 1. Septic shock from perforated viscus. 2. Acute abdominal pain due to perforated gastric ulcer. 3. Status post robotic-assisted laparoscopic repair of gastric ulcer and French patch on 09/14/2020. 4. Leukocytosis, likely reactive. 5. Anemia, acute blood loss. 6. History of tobaccoism. 7. BARBARA with hyponatremia, resolved. 8. Protein-calorie malnutrition. 9. Mediastinal mass/fullness on chest x-ray 10. Hypokalemia Plan: Plan of Care Cont Zosyn Drain and wound care as directed. Follow-up C. difficile Follow up labs and cultures. Continue supportive care. Maintain aspiration precaution. DARYN SHEPPARD MD Sep 20, 2020 08:57
[2020-09-20] MEDS: PANTOPRAZOLE IV PUSH 40 MG VIAL. IVP SCH ×2 (10:54→16:30)
[2020-09-20 11:00] VITALS: BP 146/92
[2020-09-20] MEDS ORDERED: MAGNESIUM SULFATE 4GM 100 ML IV ONE (11:00)
[2020-09-20] MEDS: TPN PER PHARMACY MC PRN (12:13)
--- NOTE | 2020-09-20 12:14 | NUR ---
Pharmacy TPN Dosing Note S: ROD NICHOLSON is a 45 year old F Currently receiving Central Continuous TPN started 09/19/20 B:Pertinent PMH: NPO, PERFORATED GASTRIC ULCERS Height: 5 feet, 9 inches Weight: 93.318033 kg Current diet: LABS: Sodium: 136 Potassium: 2.7 Chloride: 103 Calcium: 7.6 Corrected Calcium: 9.60 Magnesium: 1.2 CO2: 23 SCr: 0.4 Glucose: 145 Albumin: 1.5 AST: 9 ALT: 8 TPN FORMULA: TPN TYPE: Central Continuous AMINO ACIDS: 70 gm DEXTROSE: 240 gm LIPIDS: 30 gm SODIUM CHLORIDE: mEq SODIUM ACETATE: 90 mEq SODIUM PHOSPHATE: mmol POTASSIUM CHLORIDE: 50 mEq POTASSIUM ACETATE: mEq POTASSIUM PHOSPHATE: 30 mmol MAGNESIUM: 20 mEq CALCIUM: 7 mEq INSULIN: units MULTIPLE VITAMIN: 5 ml TRACE ELEMENTS: 1 ml(s) TPN PLAN: Multiple electrolyte abnormalities K=2.7 and phos=1.2: given 40mEq Kcl x1 and 27mmol Kphos x1; will increase Kphos in TPN to 30mmol Mag=1.2; given 4gm mag x1 and will increase to 20meq in TPN Labs in the am R: Continue TPN as written above. Will monitor electrolytes, glucose, and tolerance to TPN. SALVATORE MA [facility], 09/20/20 [id number]
--- NOTE | 2020-09-20 12:20 | PDOC ---
[employer] PROGRESS NOTE Date of Service DOS: DATE: 09/20/20 TIME: 12:17 Chief Complaint Chief Complaint Impression Septic shock Hemodynamic instability BARBARA due to vasomotor nephropathy Acute abdominal pain due to perforated gastric ulcer s/p surgical intervention Hyponatremia Tobacco misuse Plan Continue ongoing admission Patient is now status post surgery; surgery team to control NG tube and diet advancement Antibiotics per infectious disease, possible peritonitis continue Zosyn History of Present Illness History of Present Illness 45-year-old female with past medical history of plaque psoriasis, alcohol use, smoking who presents with 2-week history of epigastric abdominal pain and nausea vomiting. Abdominal pain got worse last Thursday, 9 out of 10 cramping sensation. She states that there is some blood in her vomitus and it in her stool. Her last alcoholic drink was on . She has been taking Aleve and ibuprofen for her pains. She does not take any antiacid medications. She was seen in the ED at [facility] and found on CT scan performed which showed abnormal thickening of the stomach consistent with gastritis as well as small extra luminal air perigastric concerning for gastric ulcer perforation. Patient currently is complaining of epigastric abdominal pain and appears to be very much in distress. 09/20/20 Patient evaluated at bedside Patient is noting her pain is little worse today not as controlled with the fentanyl NG tube still in place we will clamped today per surgery Continue antibiotics Plan of care discussed with bedside nurse 09/19/20 Patient seen and examined at bedside Reports overall feeling better today; says she was very fatigued the past 2 days but is feeling more energized today. Throat pain is improved with spray. Still has mild abdominal pain but again says notably improved NG tube with fair amount of secretions still NG tube management per surgical team Will add TPN today as patient has not had any nutrition in over 4 days Patient reports multiple episodes of diarrhea the past few days; reports 7 episodes yesterday. Will check C. difficile Plan of care discussed with bedside nurse 09/18/20 Patient seen and examined at bedside -Patient's only complaint this morning was wanting her NG tube out she also was rather lethargic on my interview CT scan showed no mass or lymphadenopathy Management of NG tube per general surgery team; patient says she thinks it is coming out today Possible discharge in the next day or 2 Will transition to oral medications when deemed appropriate by team surgery Plan of care discussed bedside RN 09/17/2020 Patient seen and examined at bedside Patient reports that her abdominal pain continues to improve says she was just a little sore from walking around. CT scan to evaluate mediastinal mass plan for today; echo performed this morning Continue Zosyn; Diet per surgical team Continue IV Protonix Leukocytosis improved Plan of care discussed with bedside RN 09/16/2020 continue Zosyn to 3.375 q. 6 hours Status post robotic-assisted laparoscopic repair of gastric ulcer and French patch on 09/14/2020. Leukocytosis, likely reactive.Recent postoperative pt Patient with labile blood pressures hanging in the low 70s to 80s systolics. Creatinine increased from 1.2-2.6. transferred to the ICU for vasopressor and possible surgical intervention. 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 Continue IV fluids IV electrolyte replacement as needed IV Protonix Serial abdominal exams Contraindicated for DVT prophylaxis mediastinal lymphadenopathy, mediastinal mass, or enlargement/tortuosity of the aorta. CT of the chest to further evaluate . / PULM CONSULT ECHO 33 min cc time 09/15/2020 Patient with labile blood pressures hanging in the low 70s to 80s systolics. Creatinine increased from 1.2-2.6. transferred to the ICU for vasopressor and possible surgical intervention. Patient's chart, labs, images were reviewed and discussed with RN Septic shock Hemodynamic instability BARBARA due to vasomotor nephropathyworsening Acute abdominal pain due to perforated gastric ulcer, concern for uncontained perforation Hyponatremia Tobacco misuse Admit to medicine for further management General surgery consult Strict n.p.o. Continue IV fluids IV electrolyte replacement as needed IV Protonix Serial abdominal exams Contraindicated for DVT prophylaxis 33 min cc time Vitals/I&O Vitals/I&O: Vital Signs Date Time Temp Pulse Resp B/P (MAP) Pulse Ox O2 Delivery O2 Flow Rate FiO2 09/20/20 11:00 98.1 71 18 146/92 (110) 97 Room Air 98.1 I & O 09/19/20 09/19/20 09/20/20 15:00 23:00 07:00 Intake Total 0 ml 0 ml 0 ml Output Total 800 ml 680 ml Balance -800 ml -680 ml 0 ml Physical Exam Physical Exam: GENERAL: Alert, oriented x 3 female lying in bed in no acute distress. HEENT: Normocephalic, atraumatic. Anicteric. NG tube in place. Poor dentition NECK: Supple, no lymphadenopathy. LUNGS: Clear bilaterally. No wheezing. HEART: S1, S2. No gallops or murmurs. ABDOMEN: Soft. Laparoscopic dressing intact, dry, not taken down. Drain in place. Mild tenderness to palpation in the upper quadrant. No rebound or guarding. EXTREMITIES: No edema, no cyanosis. DERMATOLOGIC: Warm, dry, no generalized rash. NEUROLOGIC: Alert, oriented x 3, grossly nonfocal. PSYCHIATRIC: Calm and cooperative. General: Alert, Oriented X3, Cooperative, moderate distress Heart: Regular rate, Normal S1, Normal S2 Lungs: Clear Abdomen: Normal bowel sounds, Other (Mild incisional tenderness wounds clean dry and intact STONE drain intact with serous drainage) Extremities: No cyanosis, No edema Skin: No rashes, No significant lesion Labs Labs: Laboratory Tests Test 09/19/20 20:20 09/20/20 06:40 Potassium Level 3.1 mmol/L (3.5-5.1) 2.7 mmol/L (3.5-5.1) Sodium Level 136 mmol/L (136-145) Chloride Level 103 mmol/L (98-107) Carbon Dioxide Level 23 mmol/L (21-32) Anion Gap 10 (6-14) Blood Urea Nitrogen 1 mg/dL (7-20) Creatinine 0.4 mg/dL (0.6-1.0) Estimated GFR (Cockcroft-Gault) 172.6 Glucose Level 145 mg/dL (70-99) Calcium Level 7.6 mg/dL (8.5-10.1) Phosphorus Level 1.7 mg/dL (2.6-4.7) Magnesium Level 1.2 mg/dL (1.8-2.4) Comment Review of Relevant I have reviewed the following items joel (where applicable) has been applied. Medications: Current Medications Medications (Trade) Dose Ordered Sig/Mouna Route PRN Reason Start Time Stop Time Status Last Admin Dose Admin Sodium Acetate 90 meq/Potassium Chloride 50 meq/ Potassium Phosphate 13.6 mmol/Magnesium Sulfate 10 meq/ Calcium Gluconate 10 meq/ Multivitamins 5 ml/Zinc/Copper/ Manganese/ Selenium 1 ml/ Total Parenteral Nutrition/Amino Acids/Dextrose/ Fat Emulsion Intravenous 1,512 ml @ 63 mls/hr TPN CONT IV 09/19/20 22:00 09/20/20 21:59 09/19/20 22:17 Potassium Chloride/Water 100 ml @ 100 mls/hr Q1H IV 09/19/20 13:00 09/19/20 16:59 DC 09/19/20 17:10 Potassium Chloride/Water 100 ml @ 100 mls/hr Q1H IV 09/20/20 09:00 09/20/20 10:59 DC 09/20/20 10:55 Fentanyl Citrate (Fentanyl 2ml Vial) 100 mcg PRN Q2HR PRN IVP SEVERE PAIN (2nd Choice) 09/20/20 09:15 09/20/20 10:53 Justifications for Admission Other Justification Abdominal pain due to perforated gastric ulcer LORENZO WONG MD Sep 20, 2020 12:20
--- NOTE | 2020-09-20 13:09 | PDOC ---
MARTIN GARCIA MASTIC SPRAYER 09/20/20 1309: SURGICAL PROGRESS NOTE DATE: 09/20/20 TIME: 13:08 Subjective abdominal pain continues no nausea having diarrhea Vital Signs Vital Signs Date Time Temp Pulse Resp B/P (MAP) Pulse Ox O2 Delivery O2 Flow Rate FiO2 09/20/20 11:00 98.1 71 18 146/92 (110) 97 Room Air 98.1 I&O Intake and Output 09/20/20 07:00 Intake Total 0 ml Output Total 1480 ml Balance -1480 ml Intake Oral 0 ml Gastric Drainage Total 1400 ml Drainage Total 80 ml # Voids 3 # Bowel Movements 2 General: Cooperative HEENT: Other (ng in place) Abdomen: Soft Labs Laboratory Tests Test 09/18/20 13:20 09/19/20 11:04 09/19/20 20:20 09/20/20 06:40 White Blood Count 13.4 x10^3/uL (4.0-11.0) 12.1 x10^3/uL (4.0-11.0) Red Blood Count 3.55 x10^6/uL (3.50-5.40) 3.13 x10^6/uL (3.50-5.40) Hemoglobin 11.4 g/dL (12.0-15.5) 10.0 g/dL (12.0-15.5) Hematocrit 34.4 % (36.0-47.0) 30.0 % (36.0-47.0) Mean Corpuscular Volume 97 fL (79-100) 96 fL (79-100) Mean Corpuscular Hemoglobin 32 pg (25-35) 32 pg (25-35) Mean Corpuscular Hemoglobin Concent 33 g/dL (31-37) 33 g/dL (31-37) Red Cell Distribution Width 14.9 % (11.5-14.5) 14.7 % (11.5-14.5) Platelet Count 227 x10^3/uL (140-400) 246 x10^3/uL (140-400) Neutrophils (%) (Auto) 83 % (31-73) 81 % (31-73) Lymphocytes (%) (Auto) 4 % (24-48) 6 % (24-48) Monocytes (%) (Auto) 13 % (0-9) 11 % (0-9) Eosinophils (%) (Auto) 1 % (0-3) 1 % (0-3) Basophils (%) (Auto) 0 % (0-3) 0 % (0-3) Neutrophils # (Auto) 11.1 x10^3/uL (1.8-7.7) 9.8 x10^3/uL (1.8-7.7) Lymphocytes # (Auto) 0.5 x10^3/uL (1.0-4.8) 0.8 x10^3/uL (1.0-4.8) Monocytes # (Auto) 1.7 x10^3/uL (0.0-1.1) 1.4 x10^3/uL (0.0-1.1) Eosinophils # (Auto) 0.1 x10^3/uL (0.0-0.7) 0.1 x10^3/uL (0.0-0.7) Basophils # (Auto) 0.0 x10^3/uL (0.0-0.2) 0.0 x10^3/uL (0.0-0.2) Sodium Level 138 mmol/L (136-145) 136 mmol/L (136-145) Potassium Level 2.6 mmol/L (3.5-5.1) 3.1 mmol/L (3.5-5.1) 2.7 mmol/L (3.5-5.1) Chloride Level 104 mmol/L (98-107) 103 mmol/L (98-107) Carbon Dioxide Level 21 mmol/L (21-32) 23 mmol/L (21-32) Anion Gap 13 (6-14) 10 (6-14) Blood Urea Nitrogen 1 mg/dL (7-20) 1 mg/dL (7-20) Creatinine 0.5 mg/dL (0.6-1.0) 0.4 mg/dL (0.6-1.0) Estimated GFR (Cockcroft-Gault) 133.4 172.6 BUN/Creatinine Ratio 2 (6-20) Glucose Level 76 mg/dL (70-99) 145 mg/dL (70-99) Calcium Level 7.8 mg/dL (8.5-10.1) 7.6 mg/dL (8.5-10.1) Total Bilirubin 0.4 mg/dL (0.2-1.0) Aspartate Amino Transf (AST/SGOT) 9 U/L (15-37) Alanine Aminotransferase (ALT/SGPT) 8 U/L (14-59) Alkaline Phosphatase 50 U/L (46-116) Total Protein 5.1 g/dL (6.4-8.2) Albumin 1.5 g/dL (3.4-5.0) Albumin/Globulin Ratio 0.4 (1.0-1.7) Phosphorus Level 1.7 mg/dL (2.6-4.7) Magnesium Level 1.2 mg/dL (1.8-2.4) Laboratory Tests Test 09/19/20 20:20 09/20/20 06:40 Potassium Level 3.1 mmol/L (3.5-5.1) 2.7 mmol/L (3.5-5.1) Sodium Level 136 mmol/L (136-145) Chloride Level 103 mmol/L (98-107) Carbon Dioxide Level 23 mmol/L (21-32) Anion Gap 10 (6-14) Blood Urea Nitrogen 1 mg/dL (7-20) Creatinine 0.4 mg/dL (0.6-1.0) Estimated GFR (Cockcroft-Gault) 172.6 Glucose Level 145 mg/dL (70-99) Calcium Level 7.6 mg/dL (8.5-10.1) Phosphorus Level 1.7 mg/dL (2.6-4.7) Magnesium Level 1.2 mg/dL (1.8-2.4) Assessment/Plan clamp NG c diff pending Justicifation of Admission Dx: Justifications for Admission: Justification of Admission Dx: Yes Sepsis: Hemodynamic Instability JHONY NÚÑEZ MD 09/20/20 1511: SURGICAL PROGRESS NOTE Assessment/Plan Agree with Silvano assessment plan clamp NG tube MARTIN GARCIA [employer]STIC SPRAYER Sep 20, 2020 13:09 JHONY NÚÑEZ MD Sep 20, 2020 15:11
[2020-09-20 15:00] VITALS: BP 147/92
[2020-09-20 19:00] VITALS: BP 148/90
[2020-09-20] MEDS: POTASSIUM PHOS,M-BASIC-D-BASIC 13.6 MMOL in IV NORMAL SALINE 250ML 250 ML IV SCH ×2 (20:13→23:13)
[2020-09-20] MEDS ORDERED: DEXTROSE 70% IV SCH (22:00)
[2020-09-20] MEDS ORDERED: [UNRECOGNIZED DRUG - OTHER] IV SCH (22:00)
[2020-09-20] MEDS ORDERED: AMINO ACID IV SCH (22:00)
[2020-09-20] MEDS ORDERED: TOTAL PARENTERAL NUTRITION IV SCH (22:00)
[2020-09-20 22:51] VITALS: BP 137/93
[2020-09-21] MEDS: fentaNYL PF VIAL 100 MCG/2 ML VIAL IVP PRN ×7 (02:21→21:05)
[2020-09-21 03:01] VITALS: BP 130/82
[2020-09-21 04:32] LABS: CALCIUM 7.5 mg/dL (8.5-10.1); CREATININE 0.4 mg/dL (0.6-1.0); GFR 172.6; MAGNESIUM 1.8 mg/dL (1.8-2.4); PHOSPHORUS 3.4 mg/dL (2.6-4.7)
[2020-09-21 04:42] LABS: POTASSIUM 2.7 mmol/L (3.5-5.1)
[2020-09-21] MEDS: PIPERACILLIN/TAZOBACTAM 3.375 GM in IV NORMAL SALINE 50ML 50 ML IV SCH ×3 (05:34→17:37)
[2020-09-21] MEDS: IV NORMAL SALINE 1000ML BAG 1,000 ML IV SCH ×3 (05:35→19:59)
[2020-09-21 07:00] VITALS: BP 140/93
[2020-09-21] MEDS: NICOTINE 21MG PATCH. TD SCH (08:35)
[2020-09-21] MEDS: PANTOPRAZOLE IV PUSH 40 MG VIAL. IVP SCH ×2 (08:35→17:36)
[2020-09-21] MEDS: SUCRALFATE 1 GM/10 ML ORAL.SUSP. NG SCH ×5 (08:35→21:05)
[2020-09-21] MEDS: POTASSIUM CHLORIDE 20MEQ 100 ML IV SCH ×2 (08:37→10:32)
--- NOTE | 2020-09-21 08:42 | PDOC ---
Infectious Disease Note Subjective: Subjective Patient feels a little better today NG-tube is clamped Denies any fever, nausea, vomiting, shortness of breath or cough Vital Signs: Vital Signs Vital Signs Date Time Temp Pulse Resp B/P (MAP) Pulse Ox O2 Delivery O2 Flow Rate FiO2 09/21/20 08:36 18 Room Air 09/21/20 07:00 97.9 85 140/93 (109) 95 97.9 09/20/20 08:00 6.0 Physical Exam: PHYSICAL EXAM GENERAL: Alert, oriented x 3 female lying in bed in no acute distress. HEENT: Normocephalic, atraumatic. Anicteric. NG tube in place. Poor dentition NECK: Supple, no lymphadenopathy. LUNGS: Clear bilaterally. No wheezing. HEART: S1, S2. No gallops or murmurs. ABDOMEN: Soft. Laparoscopic dressing intact, dry, not taken down. Drain in place. Mild tenderness to palpation in the upper quadrant. No rebound or guarding. EXTREMITIES: No edema, no cyanosis. DERMATOLOGIC: Warm, dry, no generalized rash. NEUROLOGIC: Alert, oriented x 3, grossly nonfocal. PSYCHIATRIC: Calm and cooperative. Medications: Inpatient Meds: Medications reviewed. Labs: Lab Laboratory Tests Test 09/21/20 03:45 09/21/20 05:30 Sodium Level 138 mmol/L (136-145) Potassium Level 2.7 mmol/L (3.5-5.1) 3.1 mmol/L (3.5-5.1) Chloride Level 103 mmol/L (98-107) Carbon Dioxide Level 28 mmol/L (21-32) Anion Gap 7 (6-14) Blood Urea Nitrogen 2 mg/dL (7-20) Creatinine 0.4 mg/dL (0.6-1.0) Estimated GFR (Cockcroft-Gault) 172.6 Glucose Level 134 mg/dL (70-99) Calcium Level 7.5 mg/dL (8.5-10.1) Phosphorus Level 3.4 mg/dL (2.6-4.7) Magnesium Level 1.8 mg/dL (1.8-2.4) Objective: Assessment: 1. Septic shock from perforated viscus. 2. Acute abdominal pain due to perforated gastric ulcer. 3. Status post robotic-assisted laparoscopic repair of gastric ulcer and French patch on 09/14/2020. 4. Leukocytosis, likely reactive. 5. Anemia, acute blood loss. 6. History of tobaccoism. 7. BARBARA with hyponatremia, resolved. 8. Protein-calorie malnutrition. 9. Mediastinal mass/fullness on chest x-ray 10. Hypokalemia Plan: Plan of Care Cont Zosyn Drain and wound care as directed. C. difficile negative Follow up labs and cultures. Continue supportive care. Maintain aspiration precaution. Discussed with nursing staff DARYN SHEPPARD MD Sep 21, 2020 08:42
--- NOTE | 2020-09-21 10:52 | NUR ---
SW following. Discussed with RN, NG clamped - RN thinks may be removed today. Pt currently on TPN, IV zosyn. RN advised no SW needs at this time. SW will continue to follow.
[2020-09-21 11:00] VITALS: BP 155/100
[2020-09-21] MEDS: TPN PER PHARMACY MC PRN (11:49)
--- NOTE | 2020-09-21 11:49 | NUR ---
Pharmacy TPN Dosing Note S: ROD NICHOLSON is a 45 year old F Currently receiving Central Continuous TPN started 09/19/20 B:Pertinent PMH: NPO, PERFORATED GASTRIC ULCERS Height: 5 feet, 9 inches Weight: 91.7 kg Current diet: LABS: Sodium: 138 Potassium: 2.7 Chloride: 103 Calcium: 7.5 Corrected Calcium: 9.50 Magnesium: 1.8 CO2: 28 SCr: 0.4 Glucose: 134 Albumin: 1.5 AST: 9 ALT: 8 TPN FORMULA: TPN TYPE: Central Continuous AMINO ACIDS: 70 gm DEXTROSE: 240 gm LIPIDS: 30 gm SODIUM CHLORIDE: mEq SODIUM ACETATE: 90 mEq SODIUM PHOSPHATE: mmol POTASSIUM CHLORIDE: 90 mEq POTASSIUM ACETATE: mEq POTASSIUM PHOSPHATE: 30 mmol MAGNESIUM: 20 mEq CALCIUM: 7 mEq INSULIN: units MULTIPLE VITAMIN: 5 ml TRACE ELEMENTS: 1 ml(s) TPN PLAN: K still low, increase to 90meq KCl in TPN Other electrolytes corrected after bolus and adjustments in TPN yesterday, no other changes today Labs in the am R: Continue TPN as written above. Will monitor electrolytes, glucose, and tolerance to TPN. SALVATORE MA [facility], 09/21/20 [id number]
--- NOTE | 2020-09-21 12:44 | PDOC ---
MARTIN GARCIA [employer]PT[employer] CONSERVATOR 09/21/20 1244: SURGICAL PROGRESS NOTE DATE: 09/21/20 TIME: 12:43 Subjective ng out, feels better Vital Signs Vital Signs Date Time Temp Pulse Resp B/P (MAP) Pulse Ox O2 Delivery O2 Flow Rate FiO2 09/21/20 12:10 18 Room Air 09/21/20 11:00 98.1 89 155/100 (118) 97 98.1 09/20/20 08:00 6.0 I&O Intake and Output 09/21/20 06:59 Intake Total 0 ml Output Total 1960 ml Balance -1960 ml Intake Oral 0 ml Gastric Drainage Total 1900 ml Drainage Total 60 ml # Voids 2 # Bowel Movements 1 General: Alert, Cooperative Abdomen: Soft, Other (drain serous ) Labs Laboratory Tests Test 09/19/20 14:55 09/19/20 20:20 09/20/20 06:40 09/21/20 03:45 Clostridium difficile Toxin (PCR) Negative (NEGATIVE) Potassium Level 3.1 mmol/L (3.5-5.1) 2.7 mmol/L (3.5-5.1) 2.7 mmol/L (3.5-5.1) Sodium Level 136 mmol/L (136-145) 138 mmol/L (136-145) Chloride Level 103 mmol/L (98-107) 103 mmol/L (98-107) Carbon Dioxide Level 23 mmol/L (21-32) 28 mmol/L (21-32) Anion Gap 10 (6-14) 7 (6-14) Blood Urea Nitrogen 1 mg/dL (7-20) 2 mg/dL (7-20) Creatinine 0.4 mg/dL (0.6-1.0) 0.4 mg/dL (0.6-1.0) Estimated GFR (Cockcroft-Gault) 172.6 172.6 Glucose Level 145 mg/dL (70-99) 134 mg/dL (70-99) Calcium Level 7.6 mg/dL (8.5-10.1) 7.5 mg/dL (8.5-10.1) Phosphorus Level 1.7 mg/dL (2.6-4.7) 3.4 mg/dL (2.6-4.7) Magnesium Level 1.2 mg/dL (1.8-2.4) 1.8 mg/dL (1.8-2.4) Test 09/21/20 05:30 Potassium Level 3.1 mmol/L (3.5-5.1) Laboratory Tests Test 09/21/20 03:45 09/21/20 05:30 Sodium Level 138 mmol/L (136-145) Potassium Level 2.7 mmol/L (3.5-5.1) 3.1 mmol/L (3.5-5.1) Chloride Level 103 mmol/L (98-107) Carbon Dioxide Level 28 mmol/L (21-32) Anion Gap 7 (6-14) Blood Urea Nitrogen 2 mg/dL (7-20) Creatinine 0.4 mg/dL (0.6-1.0) Estimated GFR (Cockcroft-Gault) 172.6 Glucose Level 134 mg/dL (70-99) Calcium Level 7.5 mg/dL (8.5-10.1) Phosphorus Level 3.4 mg/dL (2.6-4.7) Magnesium Level 1.8 mg/dL (1.8-2.4) Assessment/Plan trial clears Justicifation of Admission Dx: Justifications for Admission: Justification of Admission Dx: Yes Sepsis: Hemodynamic Instability JHONY NÚÑEZ MD 09/21/20 1306: SURGICAL PROGRESS NOTE Assessment/Plan Agree with Silvano assessment and plan MARTIN GARCIA APRN Sep 21, 2020 12:44 JHONY NÚÑEZ MD Sep 21, 2020 13:06
[2020-09-21 15:00] VITALS: BP 156/100
[2020-09-21 19:00] VITALS: BP 151/98
[2020-09-21] MEDS ORDERED: [UNRECOGNIZED DRUG - OTHER] IV SCH (22:00)
[2020-09-21] MEDS ORDERED: TOTAL PARENTERAL NUTRITION IV SCH (22:00)
[2020-09-21] MEDS ORDERED: DEXTROSE 70% IV SCH (22:00)
[2020-09-21] MEDS ORDERED: AMINO ACID IV SCH (22:00)
[2020-09-21 23:00] VITALS: BP 153/95
[2020-09-22] MEDS: PIPERACILLIN/TAZOBACTAM 3.375 GM in IV NORMAL SALINE 50ML 50 ML IV SCH ×4 (00:23→17:38)
[2020-09-22] MEDS: fentaNYL PF VIAL 100 MCG/2 ML VIAL IVP PRN ×8 (00:23→22:28)
[2020-09-22 03:00] VITALS: BP 163/97
[2020-09-22] MEDS: IV NORMAL SALINE 1000ML BAG 1,000 ML IV SCH ×2 (03:59→11:59)
[2020-09-22 06:42] LABS: BASO % 0 % (0-3); EOS # 0.1 x10^3/uL (0.0-0.7); EOS % 1 % (0-3); HEMATOCRIT 28.4 % (36.0-47.0); HEMOGLOBIN 9.5 g/dL (12.0-15.5); LYMPH % 8 % (24-48); MEAN CORPUSCULAR HEMOGLOBIN 32 pg (25-35); MEAN CORPUSCULAR HGB CONC 34 g/dL (31-37); MEAN CORPUSCULAR VOLUME 95 fL (79-100); MONO # 0.8 x10^3/uL (0.0-1.1); MONO % 7 % (0-9); NEUT # 9.9 x10^3/uL (1.8-7.7); NEUT % 84 % (31-73); PLATELET COUNT 320 x10^3/uL (140-400); RED BLOOD COUNT 2.98 x10^6/uL (3.50-5.40); WHITE BLOOD COUNT 11.8 x10^3/uL (4.0-11.0)
[2020-09-22 06:48] LABS: CALCIUM 7.9 mg/dL (8.5-10.1); CREATININE 0.4 mg/dL (0.6-1.0); GFR 172.6; MAGNESIUM 1.7 mg/dL (1.8-2.4); PHOSPHORUS 3.2 mg/dL (2.6-4.7); POTASSIUM 3.3 mmol/L (3.5-5.1)
[2020-09-22 07:30] VITALS: BP 152/98
[2020-09-22] MEDS ORDERED: POTASSIUM BICARB 20 MEQ EFFERVESCENT TABLET. NG ONE (07:30)
--- NOTE | 2020-09-22 08:35 | PDOC ---
Infectious Disease Note Subjective: Subjective Patient feels better today Denies any fever, nausea, vomiting, shortness of breath or cough Vital Signs: Vital Signs Vital Signs Date Time Temp Pulse Resp B/P (MAP) Pulse Ox O2 Delivery O2 Flow Rate FiO2 09/22/20 07:30 98.6 86 18 152/98 (116) 97 Room Air 98.6 Physical Exam: PHYSICAL EXAM GENERAL: Alert, oriented x 3 female lying in bed in no acute distress. HEENT: Normocephalic, atraumatic. Anicteric. NG tube removed Poor dentition NECK: Supple, no lymphadenopathy. LUNGS: Clear bilaterally. No wheezing. HEART: S1, S2. No gallops or murmurs. ABDOMEN: Soft. Laparoscopic dressing intact, dry, not taken down. Drain in place. Mild tenderness to palpation in the upper quadrant. No rebound or guarding. EXTREMITIES: No edema, no cyanosis. DERMATOLOGIC: Warm, dry, no generalized rash. NEUROLOGIC: Alert, oriented x 3, grossly nonfocal. PSYCHIATRIC: Calm and cooperative. Medications: Inpatient Meds: Medications reviewed. Labs: Lab Laboratory Tests Test 09/22/20 06:20 White Blood Count 11.8 x10^3/uL (4.0-11.0) Red Blood Count 2.98 x10^6/uL (3.50-5.40) Hemoglobin 9.5 g/dL (12.0-15.5) Hematocrit 28.4 % (36.0-47.0) Mean Corpuscular Volume 95 fL (79-100) Mean Corpuscular Hemoglobin 32 pg (25-35) Mean Corpuscular Hemoglobin Concent 34 g/dL (31-37) Red Cell Distribution Width 15.0 % (11.5-14.5) Platelet Count 320 x10^3/uL (140-400) Neutrophils (%) (Auto) 84 % (31-73) Lymphocytes (%) (Auto) 8 % (24-48) Monocytes (%) (Auto) 7 % (0-9) Eosinophils (%) (Auto) 1 % (0-3) Basophils (%) (Auto) 0 % (0-3) Neutrophils # (Auto) 9.9 x10^3/uL (1.8-7.7) Lymphocytes # (Auto) 1.0 x10^3/uL (1.0-4.8) Monocytes # (Auto) 0.8 x10^3/uL (0.0-1.1) Eosinophils # (Auto) 0.1 x10^3/uL (0.0-0.7) Basophils # (Auto) 0.0 x10^3/uL (0.0-0.2) Sodium Level 138 mmol/L (136-145) Potassium Level 3.3 mmol/L (3.5-5.1) Chloride Level 104 mmol/L (98-107) Carbon Dioxide Level 29 mmol/L (21-32) Anion Gap 5 (6-14) Blood Urea Nitrogen 2 mg/dL (7-20) Creatinine 0.4 mg/dL (0.6-1.0) Estimated GFR (Cockcroft-Gault) 172.6 Glucose Level 104 mg/dL (70-99) Calcium Level 7.9 mg/dL (8.5-10.1) Phosphorus Level 3.2 mg/dL (2.6-4.7) Magnesium Level 1.7 mg/dL (1.8-2.4) Objective: Assessment: 1. Septic shock from perforated viscus. 2. Acute abdominal pain due to perforated gastric ulcer. 3. Status post robotic-assisted laparoscopic repair of gastric ulcer and French patch on 09/14/2020. 4. Leukocytosis, likely reactive. 5. Anemia, acute blood loss. 6. History of tobaccoism. 7. BARBARA with hyponatremia, resolved. 8. Protein-calorie malnutrition. 9. Mediastinal mass/fullness on chest x-ray 10. Hypokalemia Plan: Plan of Care Cont Zosyn Will de-escalate soon Drain and wound care as directed. C. difficile negative Follow up labs and cultures. Continue supportive care. Maintain aspiration precaution. Discussed with nursing staff DARYN SHEPPARD MD Sep 22, 2020 08:35
--- NOTE | 2020-09-22 09:06 | PDOC ---
MARTIN GARCIA FINANCIAL SERVICES ASSISTANT 09/22/20 0906: SURGICAL PROGRESS NOTE DATE: 09/22/20 TIME: 09:04 Subjective body feels tired hurts at drain site no nausea Vital Signs Vital Signs Date Time Temp Pulse Resp B/P (MAP) Pulse Ox O2 Delivery O2 Flow Rate FiO2 09/22/20 07:30 98.6 86 18 152/98 (116) 97 Room Air 98.6 I&O Intake and Output 09/22/20 07:00 Intake Total 0 ml Output Total 25 ml Balance -25 ml Intake Oral 0 ml Drainage Total 25 ml # Voids 1 General: Alert, Oriented X3, Cooperative Abdomen: Soft, Other (drain serous ) Labs Laboratory Tests Test 09/21/20 03:45 09/21/20 05:30 09/22/20 06:20 Sodium Level 138 mmol/L (136-145) 138 mmol/L (136-145) Potassium Level 2.7 mmol/L (3.5-5.1) 3.1 mmol/L (3.5-5.1) 3.3 mmol/L (3.5-5.1) Chloride Level 103 mmol/L (98-107) 104 mmol/L (98-107) Carbon Dioxide Level 28 mmol/L (21-32) 29 mmol/L (21-32) Anion Gap 7 (6-14) 5 (6-14) Blood Urea Nitrogen 2 mg/dL (7-20) 2 mg/dL (7-20) Creatinine 0.4 mg/dL (0.6-1.0) 0.4 mg/dL (0.6-1.0) Estimated GFR (Cockcroft-Gault) 172.6 172.6 Glucose Level 134 mg/dL (70-99) 104 mg/dL (70-99) Calcium Level 7.5 mg/dL (8.5-10.1) 7.9 mg/dL (8.5-10.1) Phosphorus Level 3.4 mg/dL (2.6-4.7) 3.2 mg/dL (2.6-4.7) Magnesium Level 1.8 mg/dL (1.8-2.4) 1.7 mg/dL (1.8-2.4) White Blood Count 11.8 x10^3/uL (4.0-11.0) Red Blood Count 2.98 x10^6/uL (3.50-5.40) Hemoglobin 9.5 g/dL (12.0-15.5) Hematocrit 28.4 % (36.0-47.0) Mean Corpuscular Volume 95 fL (79-100) Mean Corpuscular Hemoglobin 32 pg (25-35) Mean Corpuscular Hemoglobin Concent 34 g/dL (31-37) Red Cell Distribution Width 15.0 % (11.5-14.5) Platelet Count 320 x10^3/uL (140-400) Neutrophils (%) (Auto) 84 % (31-73) Lymphocytes (%) (Auto) 8 % (24-48) Monocytes (%) (Auto) 7 % (0-9) Eosinophils (%) (Auto) 1 % (0-3) Basophils (%) (Auto) 0 % (0-3) Neutrophils # (Auto) 9.9 x10^3/uL (1.8-7.7) Lymphocytes # (Auto) 1.0 x10^3/uL (1.0-4.8) Monocytes # (Auto) 0.8 x10^3/uL (0.0-1.1) Eosinophils # (Auto) 0.1 x10^3/uL (0.0-0.7) Basophils # (Auto) 0.0 x10^3/uL (0.0-0.2) Laboratory Tests Test 09/22/20 06:20 White Blood Count 11.8 x10^3/uL (4.0-11.0) Red Blood Count 2.98 x10^6/uL (3.50-5.40) Hemoglobin 9.5 g/dL (12.0-15.5) Hematocrit 28.4 % (36.0-47.0) Mean Corpuscular Volume 95 fL (79-100) Mean Corpuscular Hemoglobin 32 pg (25-35) Mean Corpuscular Hemoglobin Concent 34 g/dL (31-37) Red Cell Distribution Width 15.0 % (11.5-14.5) Platelet Count 320 x10^3/uL (140-400) Neutrophils (%) (Auto) 84 % (31-73) Lymphocytes (%) (Auto) 8 % (24-48) Monocytes (%) (Auto) 7 % (0-9) Eosinophils (%) (Auto) 1 % (0-3) Basophils (%) (Auto) 0 % (0-3) Neutrophils # (Auto) 9.9 x10^3/uL (1.8-7.7) Lymphocytes # (Auto) 1.0 x10^3/uL (1.0-4.8) Monocytes # (Auto) 0.8 x10^3/uL (0.0-1.1) Eosinophils # (Auto) 0.1 x10^3/uL (0.0-0.7) Basophils # (Auto) 0.0 x10^3/uL (0.0-0.2) Sodium Level 138 mmol/L (136-145) Potassium Level 3.3 mmol/L (3.5-5.1) Chloride Level 104 mmol/L (98-107) Carbon Dioxide Level 29 mmol/L (21-32) Anion Gap 5 (6-14) Blood Urea Nitrogen 2 mg/dL (7-20) Creatinine 0.4 mg/dL (0.6-1.0) Estimated GFR (Cockcroft-Gault) 172.6 Glucose Level 104 mg/dL (70-99) Calcium Level 7.9 mg/dL (8.5-10.1) Phosphorus Level 3.2 mg/dL (2.6-4.7) Magnesium Level 1.7 mg/dL (1.8-2.4) Assessment/Plan clears, PPI, carafate, abx Justicifation of Admission Dx: Justifications for Admission: Justification of Admission Dx: Yes Sepsis: Hemodynamic Instability JHONY NÚÑEZ MD 09/22/20 1137: SURGICAL PROGRESS NOTE Assessment/Plan Agree with Silvano assessment and plan MARTIN GARCIA APRN Sep 22, 2020 09:06 JHONY NÚÑEZ MD Sep 22, 2020 11:37
[2020-09-22] MEDS: SUCRALFATE 1 GM/10 ML ORAL.SUSP. NG SCH ×4 (09:23→19:33)
[2020-09-22] MEDS: NICOTINE 21MG PATCH. TD SCH (09:24)
[2020-09-22] MEDS: PANTOPRAZOLE IV PUSH 40 MG VIAL. IVP SCH ×2 (09:35→15:54)
[2020-09-22 11:53] VITALS: BP 103/43
[2020-09-22] MEDS: TPN PER PHARMACY MC PRN (12:19)
--- NOTE | 2020-09-22 12:41 | NUR ---
Pharmacy TPN Dosing Note S: ROD NICHOLSON is a 45 year old F Currently receiving Central Continuous TPN started 09/19/20 B:Pertinent PMH: NPO, PERFORATED GASTRIC ULCERS Height: 5 feet, 9 inches Weight: 90.4 kg Current diet: LABS: Sodium: 138 Potassium: 3.3 Chloride: 104 Calcium: 7.9 Corrected Calcium: 9.90 Magnesium: 1.7 CO2: 29 SCr: 0.4 Glucose: 104 Albumin: 1.5 AST: 9 ALT: 8 TPN FORMULA: TPN TYPE: Central Continuous AMINO ACIDS: 70 gm DEXTROSE: 240 gm LIPIDS: 30 gm SODIUM CHLORIDE: mEq SODIUM ACETATE: 90 mEq SODIUM PHOSPHATE: mmol POTASSIUM CHLORIDE: 100 mEq POTASSIUM ACETATE: mEq POTASSIUM PHOSPHATE: 30 mmol MAGNESIUM: 24 mEq CALCIUM: 7 mEq INSULIN: units MULTIPLE VITAMIN: 5 ml TRACE ELEMENTS: 1 ml(s) TPN PLAN: UP MAGSO4 TO 24 MEQ AND KCL TO 100 MEQ R: Continue TPN AT 63ML/HR Will monitor electrolytes, glucose, and tolerance to TPN. CARLOS POLLARD [facility], 09/22/20 0861
--- NOTE | 2020-09-22 13:06 | PDOC ---
[employer] PROGRESS NOTE Date of Service DOS: DATE: 09/22/20 TIME: 13:05 Chief Complaint Chief Complaint Impression Septic shock Hemodynamic instability BARBARA due to vasomotor nephropathy Acute abdominal pain due to perforated gastric ulcer s/p surgical intervention Hyponatremia Tobacco misuse Plan Continue ongoing admission Patient is now status post surgery; NG tube removed and patient on clear liquid diet Antibiotics per infectious disease, possible peritonitis continue Zosyn, deescalate as indicated History of Present Illness History of Present Illness 45-year-old female with past medical history of plaque psoriasis, alcohol use, smoking who presents with 2-week history of epigastric abdominal pain and nausea vomiting. Abdominal pain got worse last Thursday, 9 out of 10 cramping sensation. She states that there is some blood in her vomitus and it in her stool. Her last alcoholic drink was on . She has been taking Aleve and ibuprofen for her pains. She does not take any antiacid medications. She was seen in the ED at [facility] and found on CT scan performed which showed abnormal thickening of the stomach consistent with gastritis as well as small extraluminal air perigastric concerning for gastric ulcer perforation. Patient currently is complaining of epigastric abdominal pain and appears to be very much in distress. 09/22/20 Patient seen and evaluated NG removed yesterday she is tolerating clear liquid diet Otherwise no complaints are all from her perspective Advance diet per surgery Plan of care discussed with bedside 09/21/20 Patient evaluated bedside NG still in place Reports continued improvement however NG planned to be pulled this afternoon 09/20/20 Patient evaluated at bedside Patient is noting her pain is little worse today not as controlled with the fentanyl NG tube still in place we will clamped today per surgery Continue antibiotics Plan of care discussed with bedside nurse 09/19/20 Patient seen and examined at bedside Reports overall feeling better today; says she was very fatigued the past 2 days but is feeling more energized today. Throat pain is improved with spray. Still has mild abdominal pain but again says notably improved NG tube with fair amount of secretions still NG tube management per surgical team Will add TPN today as patient has not had any nutrition in over 4 days Patient reports multiple episodes of diarrhea the past few days; reports 7 episodes yesterday. Will check C. difficile Plan of care discussed with bedside nurse 09/18/20 Patient seen and examined at bedside -Patient's only complaint this morning was wanting her NG tube out she also was rather lethargic on my interview CT scan showed no mass or lymphadenopathy Management of NG tube per general surgery team; patient says she thinks it is coming out today Possible discharge in the next day or 2 Will transition to oral medications when deemed appropriate by team surgery Plan of care discussed bedside RN 09/17/2020 Patient seen and examined at bedside Patient reports that her abdominal pain continues to improve says she was just a little sore from walking around. CT scan to evaluate mediastinal mass plan for today; echo performed this morning Continue Zosyn; Diet per surgical team Continue IV Protonix Leukocytosis improved Plan of care discussed with bedside RN 09/16/2020 continue Zosyn to 3.375 q. 6 hours Status post robotic-assisted laparoscopic repair of gastric ulcer and French patch on 09/14/2020. Leukocytosis, likely reactive.Recent postoperative pt Patient with labile blood pressures hanging in the low 70s to 80s systolics. Creatinine increased from 1.2-2.6. transferred to the ICU for vasopressor and possible surgical intervention. 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 Continue IV fluids IV electrolyte replacement as needed IV Protonix Serial abdominal exams Contraindicated for DVT prophylaxis mediastinal lymphadenopathy, mediastinal mass, or enlargement/tortuosity of the aorta. CT of the chest to further evaluate . / PULM CONSULT ECHO 33 min cc time 09/15/2020 Patient with labile blood pressures hanging in the low 70s to 80s systolics. Creatinine increased from 1.2-2.6. transferred to the ICU for vasopressor and possible surgical intervention. Patient's chart, labs, images were reviewed and discussed with RN Septic shock Hemodynamic instability BARBARA due to vasomotor nephropathyworsening Acute abdominal pain due to perforated gastric ulcer, concern for uncontained perforation Hyponatremia Tobacco misuse Admit to medicine for further management General surgery consult Strict n.p.o. Continue IV fluids IV electrolyte replacement as needed IV Protonix Serial abdominal exams Contraindicated for DVT prophylaxis 33 min cc time Vitals/I&O Vitals/I&O: Vital Signs Date Time Temp Pulse Resp B/P (MAP) Pulse Ox O2 Delivery O2 Flow Rate FiO2 09/22/20 11:53 98.8 89 18 103/43 (63) 97 Room Air 98.8 I & O 09/21/20 09/21/20 09/22/20 15:00 23:00 07:00 Intake Total 0 ml 0 ml 0 ml Output Total 25 ml Balance 0 ml -25 ml 0 ml Physical Exam Physical Exam: GENERAL: Alert, oriented x 3 female lying in bed in no acute distress. HEENT: Normocephalic, atraumatic. Anicteric. NG tube removed Poor dentition NECK: Supple, no lymphadenopathy. LUNGS: Clear bilaterally. No wheezing. HEART: S1, S2. No gallops or murmurs. ABDOMEN: Soft. Laparoscopic dressing intact, dry, not taken down. Drain in place. Mild tenderness to palpation in the upper quadrant. No rebound or guarding. EXTREMITIES: No edema, no cyanosis. DERMATOLOGIC: Warm, dry, no generalized rash. NEUROLOGIC: Alert, oriented x 3, grossly nonfocal. PSYCHIATRIC: Calm and cooperative. General: Alert, Oriented X3, Cooperative Heart: Regular rate, Normal S1, Normal S2 Lungs: Clear Abdomen: Soft, Other (drain serous ) Extremities: No cyanosis, No edema Skin: No rashes, No significant lesion Labs Labs: Laboratory Tests Test 09/22/20 06:20 White Blood Count 11.8 x10^3/uL (4.0-11.0) Red Blood Count 2.98 x10^6/uL (3.50-5.40) Hemoglobin 9.5 g/dL (12.0-15.5) Hematocrit 28.4 % (36.0-47.0) Mean Corpuscular Volume 95 fL (79-100) Mean Corpuscular Hemoglobin 32 pg (25-35) Mean Corpuscular Hemoglobin Concent 34 g/dL (31-37) Red Cell Distribution Width 15.0 % (11.5-14.5) Platelet Count 320 x10^3/uL (140-400) Neutrophils (%) (Auto) 84 % (31-73) Lymphocytes (%) (Auto) 8 % (24-48) Monocytes (%) (Auto) 7 % (0-9) Eosinophils (%) (Auto) 1 % (0-3) Basophils (%) (Auto) 0 % (0-3) Neutrophils # (Auto) 9.9 x10^3/uL (1.8-7.7) Lymphocytes # (Auto) 1.0 x10^3/uL (1.0-4.8) Monocytes # (Auto) 0.8 x10^3/uL (0.0-1.1) Eosinophils # (Auto) 0.1 x10^3/uL (0.0-0.7) Basophils # (Auto) 0.0 x10^3/uL (0.0-0.2) Sodium Level 138 mmol/L (136-145) Potassium Level 3.3 mmol/L (3.5-5.1) Chloride Level 104 mmol/L (98-107) Carbon Dioxide Level 29 mmol/L (21-32) Anion Gap 5 (6-14) Blood Urea Nitrogen 2 mg/dL (7-20) Creatinine 0.4 mg/dL (0.6-1.0) Estimated GFR (Cockcroft-Gault) 172.6 Glucose Level 104 mg/dL (70-99) Calcium Level 7.9 mg/dL (8.5-10.1) Phosphorus Level 3.2 mg/dL (2.6-4.7) Magnesium Level 1.7 mg/dL (1.8-2.4) Review of Systems Review of Systems: No acute complaints this morning Comment Review of Relevant I have reviewed the following items joel (where applicable) has been applied. Medications: Current Medications Medications (Trade) Dose Ordered Sig/Mouna Route PRN Reason Start Time Stop Time Status Last Admin Dose Admin Sodium Acetate 90 meq/Potassium Chloride 90 meq/ Potassium Phosphate 30 mmol/ Magnesium Sulfate 20 meq/Calcium Gluconate 7 meq/ Multivitamins 5 ml/Zinc/Copper/ Manganese/ Selenium 1 ml/ Total Parenteral Nutrition/Amino Acids/Dextrose/ Fat Emulsion Intravenous 1,512 ml @ 63 mls/hr TPN CONT IV 09/21/20 22:00 09/22/20 21:59 09/21/20 21:06 Potassium Bicarbonate (Potassium Effervescent Tablet) 40 meq 1X ONCE NG 09/22/20 07:30 09/22/20 07:31 DC 09/22/20 09:24 Justifications for Admission Other Justification Abdominal pain due to perforated gastric ulcer WONG,CHRISTOPHER MD Sep 22, 2020 13:06
[2020-09-22 15:27] VITALS: BP 165/99
[2020-09-22 19:49] VITALS: BP 168/101
[2020-09-22] MEDS ORDERED: TOTAL PARENTERAL NUTRITION IV SCH (22:00)
[2020-09-22] MEDS ORDERED: AMINO ACID IV SCH (22:00)
[2020-09-22] MEDS ORDERED: DEXTROSE 70% IV SCH (22:00)
[2020-09-22] MEDS ORDERED: [UNRECOGNIZED DRUG - OTHER] IV SCH (22:00)
[2020-09-22 23:33] VITALS: BP 151/98
[2020-09-23] MEDS: fentaNYL PF VIAL 100 MCG/2 ML VIAL IVP PRN ×7 (01:40→22:47)
[2020-09-23] MEDS: IV NORMAL SALINE 1000ML BAG 1,000 ML IV SCH ×4 (01:41→22:48)
[2020-09-23 03:53] VITALS: BP 161/99
[2020-09-23] MEDS: PIPERACILLIN/TAZOBACTAM 3.375 GM in IV NORMAL SALINE 50ML 50 ML IV SCH ×5 (06:05→22:48)
[2020-09-23 07:30] VITALS: BP 155/102
[2020-09-23] MEDS: SUCRALFATE 1 GM/10 ML ORAL.SUSP. NG SCH ×4 (08:46→19:43)
[2020-09-23] MEDS: PANTOPRAZOLE IV PUSH 40 MG VIAL. IVP SCH ×2 (08:47→16:19)
[2020-09-23] MEDS: NICOTINE 21MG PATCH. TD SCH (08:54)
--- NOTE | 2020-09-23 09:11 | PDOC ---
SURGICAL PROGRESS NOTE DATE: 09/23/20 TIME: 09:10 Subjective Overall improving patient still describes abdominal pain, she has had chronic abdominal pain Vital Signs Vital Signs Date Time Temp Pulse Resp B/P (MAP) Pulse Ox O2 Delivery O2 Flow Rate FiO2 09/23/20 08:47 85 161/99 09/23/20 07:30 99.4 18 97 Room Air 99.4 09/22/20 22:28 6.0 I&O Intake and Output 09/23/20 07:00 Intake Total 800 ml Output Total 2 ml Balance 798 ml Intake Oral 800 ml Urine/Stool Mix 2 ml # Voids 5 PATIENT HAS A BOWIE: No General: Alert, Oriented X3, Cooperative, mild distress Abdomen: Normal bowel sounds, Soft, Other (Mild tenderness at the drain site drain with serous drainage) Labs Laboratory Tests Test 09/22/20 06:20 White Blood Count 11.8 x10^3/uL (4.0-11.0) Red Blood Count 2.98 x10^6/uL (3.50-5.40) Hemoglobin 9.5 g/dL (12.0-15.5) Hematocrit 28.4 % (36.0-47.0) Mean Corpuscular Volume 95 fL (79-100) Mean Corpuscular Hemoglobin 32 pg (25-35) Mean Corpuscular Hemoglobin Concent 34 g/dL (31-37) Red Cell Distribution Width 15.0 % (11.5-14.5) Platelet Count 320 x10^3/uL (140-400) Neutrophils (%) (Auto) 84 % (31-73) Lymphocytes (%) (Auto) 8 % (24-48) Monocytes (%) (Auto) 7 % (0-9) Eosinophils (%) (Auto) 1 % (0-3) Basophils (%) (Auto) 0 % (0-3) Neutrophils # (Auto) 9.9 x10^3/uL (1.8-7.7) Lymphocytes # (Auto) 1.0 x10^3/uL (1.0-4.8) Monocytes # (Auto) 0.8 x10^3/uL (0.0-1.1) Eosinophils # (Auto) 0.1 x10^3/uL (0.0-0.7) Basophils # (Auto) 0.0 x10^3/uL (0.0-0.2) Sodium Level 138 mmol/L (136-145) Potassium Level 3.3 mmol/L (3.5-5.1) Chloride Level 104 mmol/L (98-107) Carbon Dioxide Level 29 mmol/L (21-32) Anion Gap 5 (6-14) Blood Urea Nitrogen 2 mg/dL (7-20) Creatinine 0.4 mg/dL (0.6-1.0) Estimated GFR (Cockcroft-Gault) 172.6 Glucose Level 104 mg/dL (70-99) Calcium Level 7.9 mg/dL (8.5-10.1) Phosphorus Level 3.2 mg/dL (2.6-4.7) Magnesium Level 1.7 mg/dL (1.8-2.4) Assessment/Plan Status post oversewing perforated gastric ulcer with French patch. Patient tolerating clear liquid diet serous output will advance to full liquid diet Justicifation of Admission Dx: Justifications for Admission: Justification of Admission Dx: Yes Sepsis: Hemodynamic Instability JHONY NÚÑEZ MD Sep 23, 2020 09:11
--- NOTE | 2020-09-23 10:33 | PDOC ---
[employer] PROGRESS NOTE Date of Service DOS: DATE: 09/23/20 TIME: 10:31 Chief Complaint Chief Complaint Impression Septic shock Hemodynamic instability BARBARA due to vasomotor nephropathy Acute abdominal pain due to perforated gastric ulcer s/p surgical intervention Hyponatremia Tobacco misuse Plan Continue ongoing admission Patient is now status post surgery; NG tube removed and patient on clear liquid diet Antibiotics per infectious disease, possible peritonitis continue Zosyn, deescalate as indicated History of Present Illness History of Present Illness 45-year-old female with past medical history of plaque psoriasis, alcohol use, smoking who presents with 2-week history of epigastric abdominal pain and nausea vomiting. Abdominal pain got worse last Thursday, 9 out of 10 cramping sensation. She states that there is some blood in her vomitus and it in her stool. Her last alcoholic drink was on . She has been taking Aleve and ibuprofen for her pains. She does not take any antiacid medications. She was seen in the ED at [facility] and found on CT scan performed which showed abnormal thickening of the stomach consistent with gastritis as well as small extraluminal air perigastric concerning for gastric ulcer perforation. Patient currently is complaining of epigastric abdominal pain and appears to be very much in distress. 09/23/20 Seen and examined at bedside Patient is morning reports not feeling very well, she did is having pain around her J-tube site She is also complaining of increased urinary frequency will check UA at this time Diet advance to full liquid today Otherwise continue current plan Plan of care discussed with bedside nurse 09/22/20 Patient seen and evaluated NG removed yesterday she is tolerating clear liquid diet Otherwise no complaints are all from her perspective Advance diet per surgery Plan of care discussed with bedside 09/21/20 Patient evaluated bedside NG still in place Reports continued improvement however NG planned to be pulled this afternoon 09/20/20 Patient evaluated at bedside Patient is noting her pain is little worse today not as controlled with the fentanyl NG tube still in place we will clamped today per surgery Continue antibiotics Plan of care discussed with bedside nurse 09/19/20 Patient seen and examined at bedside Reports overall feeling better today; says she was very fatigued the past 2 days but is feeling more energized today. Throat pain is improved with spray. Still has mild abdominal pain but again says notably improved NG tube with fair amount of secretions still NG tube management per surgical team Will add TPN today as patient has not had any nutrition in over 4 days Patient reports multiple episodes of diarrhea the past few days; reports 7 episodes yesterday. Will check C. difficile Plan of care discussed with bedside nurse 09/18/20 Patient seen and examined at bedside -Patient's only complaint this morning was wanting her NG tube out she also was rather lethargic on my interview CT scan showed no mass or lymphadenopathy Management of NG tube per general surgery team; patient says she thinks it is coming out today Possible discharge in the next day or 2 Will transition to oral medications when deemed appropriate by team surgery Plan of care discussed bedside RN 09/17/2020 Patient seen and examined at bedside Patient reports that her abdominal pain continues to improve says she was just a little sore from walking around. CT scan to evaluate mediastinal mass plan for today; echo performed this morning Continue Zosyn; Diet per surgical team Continue IV Protonix Leukocytosis improved Plan of care discussed with bedside RN 09/16/2020 continue Zosyn to 3.375 q. 6 hours Status post robotic-assisted laparoscopic repair of gastric ulcer and French patch on 09/14/2020. Leukocytosis, likely reactive.Recent postoperative pt Patient with labile blood pressures hanging in the low 70s to 80s systolics. Creatinine increased from 1.2-2.6. transferred to the ICU for vasopressor and possible surgical intervention. 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 Continue IV fluids IV electrolyte replacement as needed IV Protonix Serial abdominal exams Contraindicated for DVT prophylaxis mediastinal lymphadenopathy, mediastinal mass, or enlargement/tortuosity of the aorta. CT of the chest to further evaluate . / PULM CONSULT ECHO 33 min cc time 09/15/2020 Patient with labile blood pressures hanging in the low 70s to 80s systolics. Creatinine increased from 1.2-2.6. transferred to the ICU for vasopressor and possible surgical intervention. Patient's chart, labs, images were reviewed and discussed with RN Septic shock Hemodynamic instability BARBARA due to vasomotor nephropathyworsening Acute abdominal pain due to perforated gastric ulcer, concern for uncontained perforation Hyponatremia Tobacco misuse Admit to medicine for further management General surgery consult Strict n.p.o. Continue IV fluids IV electrolyte replacement as needed IV Protonix Serial abdominal exams Contraindicated for DVT prophylaxis 33 min cc time Vitals/I&O Vitals/I&O: Vital Signs Date Time Temp Pulse Resp B/P (MAP) Pulse Ox O2 Delivery O2 Flow Rate FiO2 09/23/20 08:47 85 161/99 09/23/20 07:30 99.4 18 97 Room Air 99.4 09/22/20 22:28 6.0 I & O 09/22/20 09/22/20 09/23/20 15:00 23:00 07:00 Intake Total 300 ml 400 ml 100 ml Output Total 2 ml Balance 300 ml 398 ml 100 ml Physical Exam Physical Exam: GENERAL: Alert, oriented x 3 female lying in bed in no acute distress. HEENT: Normocephalic, atraumatic. Anicteric. NG tube removed Poor dentition NECK: Supple, no lymphadenopathy. LUNGS: Clear bilaterally. No wheezing. HEART: S1, S2. No gallops or murmurs. ABDOMEN: Soft. Laparoscopic dressing intact, dry, not taken down. Drain in place. Mild tenderness to palpation in the upper quadrant. No rebound or guarding. EXTREMITIES: No edema, no cyanosis. DERMATOLOGIC: Warm, dry, no generalized rash. NEUROLOGIC: Alert, oriented x 3, grossly nonfocal. PSYCHIATRIC: Calm and cooperative. General: Alert, Oriented X3, Cooperative, mild distress Heart: Regular rate, Normal S1, Normal S2 Lungs: Clear Abdomen: Normal bowel sounds, Soft, Other (Mild tenderness at the drain site drain with serous drainage) Extremities: No cyanosis, No edema Skin: No rashes, No significant lesion Review of Systems Review of Systems: Abdominal pain Comment Review of Relevant I have reviewed the following items joel (where applicable) has been applied. Medications: Current Medications Medications (Trade) Dose Ordered Sig/Mouna Route PRN Reason Start Time Stop Time Status Last Admin Dose Admin Sodium Acetate 90 meq/Potassium Chloride 100 meq/ Potassium Phosphate 30 mmol/ Magnesium Sulfate 24 meq/Calcium Gluconate 7 meq/ Multivitamins 5 ml/Zinc/Copper/ Manganese/ Selenium 1 ml/ Total Parenteral Nutrition/Amino Acids/Dextrose/ Fat Emulsion Intravenous 1,512 ml @ 63 mls/hr TPN CONT IV 09/22/20 22:00 09/23/20 21:59 09/22/20 22:34 Amlodipine Besylate (Norvasc) 5 mg DAILY PO 09/23/20 09:00 09/23/20 08:47 Justifications for Admission Other Justification Abdominal pain due to perforated gastric ulcer LORENZO WONG MD Sep 23, 2020 10:33
[2020-09-23 11:17] VITALS: BP 157/101
--- NOTE | 2020-09-23 13:27 | PDOC ---
Infectious Disease Note Subjective: Subjective Pt feels better Denies any fever, nausea, vomiting, shortness of breath or cough Vital Signs: Vital Signs Vital Signs Date Time Temp Pulse Resp B/P (MAP) Pulse Ox O2 Delivery O2 Flow Rate FiO2 09/23/20 11:40 Room Air 09/23/20 11:17 98.7 86 18 157/101 (119) 95 98.7 09/22/20 22:28 6.0 Physical Exam: PHYSICAL EXAM GENERAL: Alert, oriented x 3 female lying in bed in no acute distress. HEENT: Normocephalic, atraumatic. Anicteric. NG tube removed Poor dentition NECK: Supple, no lymphadenopathy. LUNGS: Clear bilaterally. No wheezing. HEART: S1, S2. No gallops or murmurs. ABDOMEN: Soft. Laparoscopic dressing intact, dry, not taken down. Drain in place. Mild tenderness to palpation in the upper quadrant. No rebound or guarding. EXTREMITIES: No edema, no cyanosis. DERMATOLOGIC: Warm, dry, no generalized rash. NEUROLOGIC: Alert, oriented x 3, grossly nonfocal. PSYCHIATRIC: Calm and cooperative. Medications: Inpatient Meds: Medications reviewed. Objective: Assessment: 1. Septic shock from perforated viscus. 2. Acute abdominal pain due to perforated gastric ulcer. 3. Status post robotic-assisted laparoscopic repair of gastric ulcer and French patch on 09/14/2020. 4. Leukocytosis, likely reactive. 5. Anemia, acute blood loss. 6. History of tobaccoism. 7. BARBARA with hyponatremia, resolved. 8. Protein-calorie malnutrition. 9. Mediastinal mass/fullness on chest x-ray 10. Hypokalemia Plan: Plan of Care DC Zosyn augmentin Drain and wound care as directed. C. difficile negative Follow up labs and cultures. Continue supportive care. DARYN SHEPPARD MD Sep 23, 2020 13:27
[2020-09-23 15:00] VITALS: BP 155/97
[2020-09-23 17:30] LABS: BILIRUBIN,URINE NEGATIVE (NEG); CLARITY,URINE HAZY; COLOR,URINE YELLOW; NITRITE,URINE NEGATIVE (NEG); PH,URINE 8.5 (<5.0-8.0); PROTEIN,URINE NEGATIVE (NEG-TRACE)
[2020-09-23 17:31] LABS: BACTERIA,URINE 0 /HPF (0-FEW); RBC,URINE >40 /HPF (0-2); WBC,URINE 0 /HPF (0-4)
[2020-09-23 19:20] VITALS: BP 157/106
--- NOTE | 2020-09-23 22:00 | NUR ---
Pts STONE drain slowly reinflates by itself after decompression.
[2020-09-23 22:58] VITALS: BP 146/93
[2020-09-24] MEDS: fentaNYL PF VIAL 100 MCG/2 ML VIAL IVP PRN ×5 (01:50→20:08)
[2020-09-24] MEDS: ACETAMINOPHEN 325 MG TABLET. PO PRN ×2 (01:54→05:50)
[2020-09-24 03:01] VITALS: BP 145/95
[2020-09-24] MEDS: PIPERACILLIN/TAZOBACTAM 3.375 GM in IV NORMAL SALINE 50ML 50 ML IV SCH (05:44)
[2020-09-24] MEDS: IV NORMAL SALINE 1000ML BAG 1,000 ML IV SCH ×3 (05:44→19:59)
[2020-09-24 07:00] VITALS: BP 132/92
[2020-09-24] MEDS: SUCRALFATE 1 GM/10 ML ORAL.SUSP. NG SCH ×4 (07:30→20:07)
[2020-09-24] MEDS: PANTOPRAZOLE IV PUSH 40 MG VIAL. IVP SCH ×2 (07:30→16:29)
[2020-09-24] MEDS: NICOTINE 21MG PATCH. TD SCH (09:00)
--- NOTE | 2020-09-24 10:35 | NUR ---
SW following. Discussed with RN, pt from home, room air, full liquid diet, rapid COVID-19 negative. STONE drain, IV zosyn. RN advised no SW needs at this time. SW will continue to follow.
[2020-09-24 11:00] VITALS: BP 140/96
[2020-09-24 11:25] LABS: ALBUMIN 1.9 g/dL (3.4-5.0); ALBUMIN/GLOBULIN RATIO 0.4 (1.0-1.7); CALCIUM 8.7 mg/dL (8.5-10.1); CREATININE 0.6 mg/dL (0.6-1.0); GFR 108.1; POTASSIUM 4.3 mmol/L (3.5-5.1); TOTAL BILIRUBIN 0.6 mg/dL (0.2-1.0); TOTAL PROTEIN 6.6 g/dL (6.4-8.2)
[2020-09-24] MEDS: AMOXICILLIN/K CLAV 875/125MG TABLET. PO SCH ×2 (11:54→20:07)
--- NOTE | 2020-09-24 12:55 | PDOC ---
MARTIN GARCIA [employer] 09/24/20 1255: SURGICAL PROGRESS NOTE DATE: 09/24/20 TIME: 12:54 Subjective main complaint is loose stools tolerating diet Vital Signs Vital Signs Date Time Temp Pulse Resp B/P (MAP) Pulse Ox O2 Delivery O2 Flow Rate FiO2 09/24/20 11:55 20 93 Room Air 09/24/20 11:00 98.3 87 140/96 (111) 98.3 I&O Intake and Output 09/24/20 07:00 Intake Total 2550 ml Output Total 2 ml Balance 2548 ml Intake Oral 800 ml IV Total 1750 ml Urine/Stool Mix 2 ml # Voids 6 General: Alert, Oriented X3, Cooperative Abdomen: Soft, Other (drain serous) Labs Laboratory Tests Test 09/23/20 15:30 09/24/20 11:00 Urine Collection Type Unknown Urine Color Yellow Urine Clarity Hazy Urine pH 8.5 (<5.0-8.0) Urine Specific [place] 1.020 (1.000-1.030) Urine Protein Negative mg/dL (NEG-TRACE) Urine Glucose (UA) Negative mg/dL (NEG) Urine Ketones (Stick) Negative mg/dL (NEG) Urine Blood Large (NEG) Urine Nitrite Negative (NEG) Urine Bilirubin Negative (NEG) Urine Urobilinogen Dipstick 1.0 mg/dL (0.2 mg/dL) Urine Leukocyte Esterase Negative (NEG) Urine RBC >40 /HPF (0-2) Urine WBC 0 /HPF (0-4) Urine Squamous Epithelial Cells Mod /LPF Urine Bacteria 0 /HPF (0-FEW) Sodium Level 134 mmol/L (136-145) Potassium Level 4.3 mmol/L (3.5-5.1) Chloride Level 100 mmol/L (98-107) Carbon Dioxide Level 28 mmol/L (21-32) Anion Gap 6 (6-14) Blood Urea Nitrogen 6 mg/dL (7-20) Creatinine 0.6 mg/dL (0.6-1.0) Estimated GFR (Cockcroft-Gault) 108.1 BUN/Creatinine Ratio 10 (6-20) Glucose Level 80 mg/dL (70-99) Calcium Level 8.7 mg/dL (8.5-10.1) Total Bilirubin 0.6 mg/dL (0.2-1.0) Aspartate Amino Transf (AST/SGOT) 13 U/L (15-37) Alanine Aminotransferase (ALT/SGPT) 7 U/L (14-59) Alkaline Phosphatase 68 U/L (46-116) Total Protein 6.6 g/dL (6.4-8.2) Albumin 1.9 g/dL (3.4-5.0) Albumin/Globulin Ratio 0.4 (1.0-1.7) Laboratory Tests Test 09/23/20 15:30 09/24/20 11:00 Urine Collection Type Unknown Urine Color Yellow Urine Clarity Hazy Urine pH 8.5 (<5.0-8.0) Urine Specific [place] 1.020 (1.000-1.030) Urine Protein Negative mg/dL (NEG-TRACE) Urine Glucose (UA) Negative mg/dL (NEG) Urine Ketones (Stick) Negative mg/dL (NEG) Urine Blood Large (NEG) Urine Nitrite Negative (NEG) Urine Bilirubin Negative (NEG) Urine Urobilinogen Dipstick 1.0 mg/dL (0.2 mg/dL) Urine Leukocyte Esterase Negative (NEG) Urine RBC >40 /HPF (0-2) Urine WBC 0 /HPF (0-4) Urine Squamous Epithelial Cells Mod /LPF Urine Bacteria 0 /HPF (0-FEW) Sodium Level 134 mmol/L (136-145) Potassium Level 4.3 mmol/L (3.5-5.1) Chloride Level 100 mmol/L (98-107) Carbon Dioxide Level 28 mmol/L (21-32) Anion Gap 6 (6-14) Blood Urea Nitrogen 6 mg/dL (7-20) Creatinine 0.6 mg/dL (0.6-1.0) Estimated GFR (Cockcroft-Gault) 108.1 BUN/Creatinine Ratio 10 (6-20) Glucose Level 80 mg/dL (70-99) Calcium Level 8.7 mg/dL (8.5-10.1) Total Bilirubin 0.6 mg/dL (0.2-1.0) Aspartate Amino Transf (AST/SGOT) 13 U/L (15-37) Alanine Aminotransferase (ALT/SGPT) 7 U/L (14-59) Alkaline Phosphatase 68 U/L (46-116) Total Protein 6.6 g/dL (6.4-8.2) Albumin 1.9 g/dL (3.4-5.0) Albumin/Globulin Ratio 0.4 (1.0-1.7) Assessment/Plan advance diet expect home soon, will remove drain at discharge Justicifation of Admission Dx: Justifications for Admission: Justification of Admission Dx: Yes Sepsis: Hemodynamic Instability JHONY NÚÑEZ MD 09/24/20 1659: SURGICAL PROGRESS NOTE Assessment/Plan Agree with Igor's assessment and plan. MARTIN GARCIA APRN Sep 24, 2020 12:55 JHONY NÚÑEZ MD Sep 24, 2020 16:59
--- NOTE | 2020-09-24 14:45 | PDOC ---
[employer] PROGRESS NOTE Date of Service DOS: DATE: 09/24/20 TIME: 14:44 Chief Complaint Chief Complaint acute abd pain, perforated gastric ulcer on admit, s/p surgical in tervention Septic shock Hemodynamic instability BARBARA due to vasomotor nephropathy Hyponatremia Tobacco misuse History of Present Illness History of Present Illness 09/24, gen surg following, cnt current, DC when STONE drain out 45-year-old female with past medical history of plaque psoriasis, alcohol use, smoking who presents with 2-week history of epigastric abdominal pain and nausea vomiting. Abdominal pain got worse last Thursday, 9 out of 10 cramping sensation. She states that there is some blood in her vomitus and it in her stool. Her last alcoholic drink was on . She has been taking Aleve and ibuprofen for her pains. She does not take any antiacid medications. She was seen in the ED at [facility] and found on CT scan performed which showed abnormal thickening of the stomach consistent with gastritis as well as small extraluminal air perigastric concerning for gastric ulcer perforation. Patient currently is complaining of epigastric abdominal pain and appears to be very much in distress. 09/23/20 Seen and examined at bedside Patient is morning reports not feeling very well, she did is having pain around her J-tube site She is also complaining of increased urinary frequency will check UA at this time Diet advance to full liquid today Otherwise continue current plan Plan of care discussed with bedside nurse 09/22/20 Patient seen and evaluated NG removed yesterday she is tolerating clear liquid diet Otherwise no complaints are all from her perspective Advance diet per surgery Plan of care discussed with bedside 09/21/20 Patient evaluated bedside NG still in place Reports continued improvement however NG planned to be pulled this afternoon 09/20/20 Patient evaluated at bedside Patient is noting her pain is little worse today not as controlled with the fentanyl NG tube still in place we will clamped today per surgery Continue antibiotics Plan of care discussed with bedside nurse 09/19/20 Patient seen and examined at bedside Reports overall feeling better today; says she was very fatigued the past 2 days but is feeling more energized today. Throat pain is improved with spray. Still has mild abdominal pain but again says notably improved NG tube with fair amount of secretions still NG tube management per surgical team Will add TPN today as patient has not had any nutrition in over 4 days Patient reports multiple episodes of diarrhea the past few days; reports 7 episodes yesterday. Will check C. difficile Plan of care discussed with bedside nurse 09/18/20 Patient seen and examined at bedside -Patient's only complaint this morning was wanting her NG tube out she also was rather lethargic on my interview CT scan showed no mass or lymphadenopathy Management of NG tube per general surgery team; patient says she thinks it is coming out today Possible discharge in the next day or 2 Will transition to oral medications when deemed appropriate by team surgery Plan of care discussed bedside RN 09/17/2020 Patient seen and examined at bedside Patient reports that her abdominal pain continues to improve says she was just a little sore from walking around. CT scan to evaluate mediastinal mass plan for today; echo performed this morning Continue Zosyn; Diet per surgical team Continue IV Protonix Leukocytosis improved Plan of care discussed with bedside RN 09/16/2020 continue Zosyn to 3.375 q. 6 hours Status post robotic-assisted laparoscopic repair of gastric ulcer and French patch on 09/14/2020. Leukocytosis, likely reactive.Recent postoperative pt Patient with labile blood pressures hanging in the low 70s to 80s systolics. Creatinine increased from 1.2-2.6. transferred to the ICU for vasopressor and possible surgical intervention. 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 Continue IV fluids IV electrolyte replacement as needed IV Protonix Serial abdominal exams Contraindicated for DVT prophylaxis mediastinal lymphadenopathy, mediastinal mass, or enlargement/tortuosity of the aorta. CT of the chest to further evaluate . / PULM CONSULT ECHO 33 min cc time 09/15/2020 Patient with labile blood pressures hanging in the low 70s to 80s systolics. Creatinine increased from 1.2-2.6. transferred to the ICU for vasopressor and possible surgical intervention. Patient's chart, labs, images were reviewed and discussed with RN Septic shock Hemodynamic instability BARBARA due to vasomotor nephropathyworsening Acute abdominal pain due to perforated gastric ulcer, concern for uncontained perforation Hyponatremia Tobacco misuse Admit to medicine for further management General surgery consult Strict n.p.o. Continue IV fluids IV electrolyte replacement as needed IV Protonix Serial abdominal exams Contraindicated for DVT prophylaxis 33 min cc time Vitals/I&O Vitals/I&O: Vital Signs Date Time Temp Pulse Resp B/P (MAP) Pulse Ox O2 Delivery O2 Flow Rate FiO2 09/24/20 11:55 20 93 Room Air 09/24/20 11:00 98.3 87 140/96 (111) 98.3 I & O 09/23/20 09/23/20 09/24/20 15:00 23:00 07:00 Intake Total 400 ml 1300 ml 850 ml Output Total 2 ml Balance 400 ml 1298 ml 850 ml Physical Exam Physical Exam: GENERAL: Alert, oriented x 3 female lying in bed in no acute distress. HEENT: Normocephalic, atraumatic. Anicteric. NG tube removed Poor dentition NECK: Supple, no lymphadenopathy. LUNGS: Clear bilaterally. No wheezing. HEART: S1, S2. No gallops or murmurs. ABDOMEN: Soft. Laparoscopic dressing intact, dry, not taken down. Drain in place. Mild tenderness to palpation in the upper quadrant. No rebound or guarding. EXTREMITIES: No edema, no cyanosis. DERMATOLOGIC: Warm, dry, no generalized rash. NEUROLOGIC: Alert, oriented x 3, grossly nonfocal. PSYCHIATRIC: Calm and cooperative. General: Alert, Oriented X3, Cooperative Heart: Regular rate, Normal S1, Normal S2 Lungs: Clear Abdomen: Soft, Other (drain serous) Extremities: No cyanosis, No edema Skin: No rashes, No significant lesion Labs Labs: Laboratory Tests Test 09/23/20 15:30 09/24/20 11:00 Urine Collection Type Unknown Urine Color Yellow Urine Clarity Hazy Urine pH 8.5 (<5.0-8.0) Urine Specific [place] 1.020 (1.000-1.030) Urine Protein Negative mg/dL (NEG-TRACE) Urine Glucose (UA) Negative mg/dL (NEG) Urine Ketones (Stick) Negative mg/dL (NEG) Urine Blood Large (NEG) Urine Nitrite Negative (NEG) Urine Bilirubin Negative (NEG) Urine Urobilinogen Dipstick 1.0 mg/dL (0.2 mg/dL) Urine Leukocyte Esterase Negative (NEG) Urine RBC >40 /HPF (0-2) Urine WBC 0 /HPF (0-4) Urine Squamous Epithelial Cells Mod /LPF Urine Bacteria 0 /HPF (0-FEW) Sodium Level 134 mmol/L (136-145) Potassium Level 4.3 mmol/L (3.5-5.1) Chloride Level 100 mmol/L (98-107) Carbon Dioxide Level 28 mmol/L (21-32) Anion Gap 6 (6-14) Blood Urea Nitrogen 6 mg/dL (7-20) Creatinine 0.6 mg/dL (0.6-1.0) Estimated GFR (Cockcroft-Gault) 108.1 BUN/Creatinine Ratio 10 (6-20) Glucose Level 80 mg/dL (70-99) Calcium Level 8.7 mg/dL (8.5-10.1) Total Bilirubin 0.6 mg/dL (0.2-1.0) Aspartate Amino Transf (AST/SGOT) 13 U/L (15-37) Alanine Aminotransferase (ALT/SGPT) 7 U/L (14-59) Alkaline Phosphatase 68 U/L (46-116) Total Protein 6.6 g/dL (6.4-8.2) Albumin 1.9 g/dL (3.4-5.0) Albumin/Globulin Ratio 0.4 (1.0-1.7) Comment Review of Relevant I have reviewed the following items joel (where applicable) has been applied. Medications: Current Medications Medications (Trade) Dose Ordered Sig/Mouna Route PRN Reason Start Time Stop Time Status Last Admin Dose Admin Amoxicillin/ Clavulanate Potassium (Augmentin 875/ 125mg) 1 tab BID PO 09/24/20 12:00 09/24/20 11:54 Justifications for Admission Other Justification Abdominal pain due to perforated gastric ulcer BARBARA FLANNERY MD Sep 24, 2020 14:45
[2020-09-24] MEDS: oxyCODONE/APAP 10/325 1 TAB TABLET PO PRN ×2 (15:21→23:13)
[2020-09-24 19:48] VITALS: BP 152/103
[2020-09-24 23:39] VITALS: BP 155/91
[2020-09-25] MEDS: fentaNYL PF VIAL 100 MCG/2 ML VIAL IVP PRN ×3 (02:07→11:50)
[2020-09-25] MEDS: IV NORMAL SALINE 1000ML BAG 1,000 ML IV SCH ×2 (02:08→11:59)
[2020-09-25 03:17] VITALS: BP 121/86
[2020-09-25] MEDS: oxyCODONE/APAP 10/325 1 TAB TABLET PO PRN (05:43)
[2020-09-25 07:00] VITALS: BP 125/82
--- NOTE | 2020-09-25 08:26 | PDOC ---
Infectious Disease Note Subjective: Subjective Pt feels better Denies any fever, nausea, vomiting, shortness of breath or cough Vital Signs: Vital Signs Vital Signs Date Time Temp Pulse Resp B/P (MAP) Pulse Ox O2 Delivery O2 Flow Rate FiO2 09/25/20 06:13 95 Room Air 09/25/20 05:43 6.0 09/25/20 03:17 98.7 82 18 121/86 (98) 98.7 Physical Exam: PHYSICAL EXAM GENERAL: Alert, oriented x 3 female lying in bed in no acute distress. HEENT: Normocephalic, atraumatic. Anicteric. NG tube removed Poor dentition NECK: Supple, no lymphadenopathy. LUNGS: Clear bilaterally. No wheezing. HEART: S1, S2. No gallops or murmurs. ABDOMEN: Soft. Laparoscopic dressing intact, dry, not taken down. Drain in place. Mild tenderness to palpation in the upper quadrant. No rebound or guarding. EXTREMITIES: No edema, no cyanosis. DERMATOLOGIC: Warm, dry, no generalized rash. NEUROLOGIC: Alert, oriented x 3, grossly nonfocal. PSYCHIATRIC: Calm and cooperative. Medications: Inpatient Meds: Medications reviewed. Labs: Lab Laboratory Tests Test 09/24/20 11:00 Sodium Level 134 mmol/L (136-145) Potassium Level 4.3 mmol/L (3.5-5.1) Chloride Level 100 mmol/L (98-107) Carbon Dioxide Level 28 mmol/L (21-32) Anion Gap 6 (6-14) Blood Urea Nitrogen 6 mg/dL (7-20) Creatinine 0.6 mg/dL (0.6-1.0) Estimated GFR (Cockcroft-Gault) 108.1 BUN/Creatinine Ratio 10 (6-20) Glucose Level 80 mg/dL (70-99) Calcium Level 8.7 mg/dL (8.5-10.1) Total Bilirubin 0.6 mg/dL (0.2-1.0) Aspartate Amino Transf (AST/SGOT) 13 U/L (15-37) Alanine Aminotransferase (ALT/SGPT) 7 U/L (14-59) Alkaline Phosphatase 68 U/L (46-116) Total Protein 6.6 g/dL (6.4-8.2) Albumin 1.9 g/dL (3.4-5.0) Albumin/Globulin Ratio 0.4 (1.0-1.7) Objective: Assessment: 1. Septic shock from perforated viscus. 2. Acute abdominal pain due to perforated gastric ulcer. 3. Status post robotic-assisted laparoscopic repair of gastric ulcer and French patch on 09/14/2020. 4. Leukocytosis, likely reactive. 5. Anemia, acute blood loss. 6. History of tobaccoism. 7. BARBARA with hyponatremia, resolved. 8. Protein-calorie malnutrition. 9. Mediastinal mass/fullness on chest x-ray 10. Hypokalemia Plan: Plan of Care augmentin for 5 days Drain and wound care as directed. C. difficile negative Follow up labs and cultures. Continue supportive care. DARYN SHEPPARD MD Sep 25, 2020 08:25
[2020-09-25] MEDS: PANTOPRAZOLE IV PUSH 40 MG VIAL. IVP SCH (08:41)
[2020-09-25] MEDS: AMOXICILLIN/K CLAV 875/125MG TABLET. PO SCH (08:41)
[2020-09-25] MEDS: NICOTINE 21MG PATCH. TD SCH ×2 (08:42→08:46)
[2020-09-25] MEDS: SUCRALFATE 1 GM/10 ML ORAL.SUSP. NG SCH ×2 (08:42→11:50)
--- NOTE | 2020-09-25 09:20 | PDOC ---
MARTIN GARCIA BUTTON MACHINE OPERATOR 09/25/20 0920: SURGICAL PROGRESS NOTE DATE: 09/25/20 TIME: 09:19 Subjective tolerating diet mostly, not a breakfast person had some incisional pain Vital Signs Vital Signs Date Time Temp Pulse Resp B/P (MAP) Pulse Ox O2 Delivery O2 Flow Rate FiO2 09/25/20 08:42 84 125/82 09/25/20 07:00 98.0 16 95 Room Air 98.0 09/25/20 05:43 6.0 I&O Intake and Output 09/25/20 07:00 Intake Total 900 ml Output Total 500 ml Balance 400 ml Intake Oral 900 ml Output Urine Total 500 ml Drainage Total 0 ml # Bowel Movements 2 General: Alert, Oriented X3, Cooperative Abdomen: Soft, Other (harpreet serous, lap sites c/d/i) Labs Laboratory Tests Test 09/23/20 15:30 09/24/20 11:00 Urine Collection Type Unknown Urine Color Yellow Urine Clarity Hazy Urine pH 8.5 (<5.0-8.0) Urine Specific [place] 1.020 (1.000-1.030) Urine Protein Negative mg/dL (NEG-TRACE) Urine Glucose (UA) Negative mg/dL (NEG) Urine Ketones (Stick) Negative mg/dL (NEG) Urine Blood Large (NEG) Urine Nitrite Negative (NEG) Urine Bilirubin Negative (NEG) Urine Urobilinogen Dipstick 1.0 mg/dL (0.2 mg/dL) Urine Leukocyte Esterase Negative (NEG) Urine RBC >40 /HPF (0-2) Urine WBC 0 /HPF (0-4) Urine Squamous Epithelial Cells Mod /LPF Urine Bacteria 0 /HPF (0-FEW) Sodium Level 134 mmol/L (136-145) Potassium Level 4.3 mmol/L (3.5-5.1) Chloride Level 100 mmol/L (98-107) Carbon Dioxide Level 28 mmol/L (21-32) Anion Gap 6 (6-14) Blood Urea Nitrogen 6 mg/dL (7-20) Creatinine 0.6 mg/dL (0.6-1.0) Estimated GFR (Cockcroft-Gault) 108.1 BUN/Creatinine Ratio 10 (6-20) Glucose Level 80 mg/dL (70-99) Calcium Level 8.7 mg/dL (8.5-10.1) Total Bilirubin 0.6 mg/dL (0.2-1.0) Aspartate Amino Transf (AST/SGOT) 13 U/L (15-37) Alanine Aminotransferase (ALT/SGPT) 7 U/L (14-59) Alkaline Phosphatase 68 U/L (46-116) Total Protein 6.6 g/dL (6.4-8.2) Albumin 1.9 g/dL (3.4-5.0) Albumin/Globulin Ratio 0.4 (1.0-1.7) Laboratory Tests Test 09/24/20 11:00 Sodium Level 134 mmol/L (136-145) Potassium Level 4.3 mmol/L (3.5-5.1) Chloride Level 100 mmol/L (98-107) Carbon Dioxide Level 28 mmol/L (21-32) Anion Gap 6 (6-14) Blood Urea Nitrogen 6 mg/dL (7-20) Creatinine 0.6 mg/dL (0.6-1.0) Estimated GFR (Cockcroft-Gault) 108.1 BUN/Creatinine Ratio 10 (6-20) Glucose Level 80 mg/dL (70-99) Calcium Level 8.7 mg/dL (8.5-10.1) Total Bilirubin 0.6 mg/dL (0.2-1.0) Aspartate Amino Transf (AST/SGOT) 13 U/L (15-37) Alanine Aminotransferase (ALT/SGPT) 7 U/L (14-59) Alkaline Phosphatase 68 U/L (46-116) Total Protein 6.6 g/dL (6.4-8.2) Albumin 1.9 g/dL (3.4-5.0) Albumin/Globulin Ratio 0.4 (1.0-1.7) Assessment/Plan doing well surgically can dc when medically ready will dc drain prior to discharge Justicifation of Admission Dx: Justifications for Admission: Justification of Admission Dx: Yes Sepsis: Hemodynamic Instability JHONY NÚÑEZ MD 09/25/20 1135: SURGICAL PROGRESS NOTE Assessment/Plan Agree with Silvano assessment plan. Be sure drain is removed prior to discharge MARTIN GARCIA BUTTON MACHINE OPERATOR Sep 25, 2020 09:20 JHONY NÚÑEZ MD Sep 25, 2020 11:35
[2020-09-25 11:00] VITALS: BP 114/72
[2020-09-25] MEDS ORDERED: AMOX1TAB11 PO (11:27)
[2020-09-25] MEDS ORDERED: OXYC1TAB22 PO (11:27)
[2020-09-25] MEDS ORDERED: SUCR1ORA14 NG (11:27)
[2020-09-25] MEDS ORDERED: DOCU-153 PO (11:27)
[2020-09-25] MEDS ORDERED: DICYCLOMINE HCL IM (11:27)
[2020-09-25] MEDS ORDERED: PANT40TA77 PO (12:12)
--- NOTE | 2020-09-25 12:51 | PDOC3 ---
Discharge Summary Visit Information Date of Admission: Sep 13, 2020 Date of Discharge: Sep 25, 2020 Final Diagnosis acute abd pain, perforated gastric ulcer on admit, s/p surgical intervention Septic shock Hemodynamic instability BARBARA due to vasomotor nephropathy Hyponatremia Tobacco misuse Brief Hospital Course Allergies Allergies Coded Allergies Type Severity Reaction Last Updated Verified No Known Drug Allergies 09/13/20 No Vital Signs Vital Signs Date Time Temp Pulse Resp B/P (MAP) Pulse Ox O2 Delivery O2 Flow Rate FiO2 09/25/20 11:00 98.5 93 18 114/72 (86) 95 98.5 09/25/20 08:00 Room Air 09/25/20 05:43 6.0 Lab Results Laboratory Tests Test 09/23/20 15:30 09/24/20 11:00 Urine Collection Type Unknown Urine Color Yellow Urine Clarity Hazy Urine pH 8.5 (<5.0-8.0) Urine Specific [place] 1.020 (1.000-1.030) Urine Protein Negative mg/dL (NEG-TRACE) Urine Glucose (UA) Negative mg/dL (NEG) Urine Ketones (Stick) Negative mg/dL (NEG) Urine Blood Large (NEG) Urine Nitrite Negative (NEG) Urine Bilirubin Negative (NEG) Urine Urobilinogen Dipstick 1.0 mg/dL (0.2 mg/dL) Urine Leukocyte Esterase Negative (NEG) Urine RBC >40 /HPF (0-2) Urine WBC 0 /HPF (0-4) Urine Squamous Epithelial Cells Mod /LPF Urine Bacteria 0 /HPF (0-FEW) Sodium Level 134 mmol/L (136-145) Potassium Level 4.3 mmol/L (3.5-5.1) Chloride Level 100 mmol/L (98-107) Carbon Dioxide Level 28 mmol/L (21-32) Anion Gap 6 (6-14) Blood Urea Nitrogen 6 mg/dL (7-20) Creatinine 0.6 mg/dL (0.6-1.0) Estimated GFR (Cockcroft-Gault) 108.1 BUN/Creatinine Ratio 10 (6-20) Glucose Level 80 mg/dL (70-99) Calcium Level 8.7 mg/dL (8.5-10.1) Total Bilirubin 0.6 mg/dL (0.2-1.0) Aspartate Amino Transf (AST/SGOT) 13 U/L (15-37) Alanine Aminotransferase (ALT/SGPT) 7 U/L (14-59) Alkaline Phosphatase 68 U/L (46-116) Total Protein 6.6 g/dL (6.4-8.2) Albumin 1.9 g/dL (3.4-5.0) Albumin/Globulin Ratio 0.4 (1.0-1.7) Brief Hospital Course Ms. Martinez is a 45 old female with past medical history of plaque psoriasis, alcohol use, smoking who ADMIT with 2-week history of epigastric abdominal pain and nausea vomiting. ACUTE perforated gastic ulcer, to OR, surg repair, did well, pain, cramping, supportive measures and time, J-tube site, STONE drain removed before DC Discharge Information Condition at Discharge: Improved Follow Up: Weeks Disposition/Orders: D/C to Home Scheduled Amoxicillin/Potassium Clav (Amox Tr-K Clv 875-125 Mg Tab) 1 Each Tablet, 1 TAB PO BID for abd infection, #10 Prescribed by: BARBARA FLANNERY on 09/25/20 1248 Docusate Sodium (Dok) 100 Mg Capsule, 100 MG PO BID for hard stools, #60 hold for loose stools Prescribed by: BARBARA FLANNERY on 09/25/20 1248 Naproxen (Naproxen) 500 Mg Tablet.dr, 500 MG PO 6XDAY for pain, (Reported) Entered as Reported by: Tiff Rodriguez on 09/13/201954 Last Action: New Order on 09/13/201954 by Tiff Rodriguez Pantoprazole Sodium (Pantoprazole Sodium ) 40 Mg Tablet.dr, 40 MG PO BID for GERD, #60 Prescribed by: BARBARA FLANNERY on 09/25/20 1212 Sucralfate (Sucralfate) 1 Gm/10 Ml Oral.susp, 1 GM NG TIDAC for abd pain, #60 Prescribed by: BARBARA FLANNERY on 09/25/20 1248 Scheduled PRN Ibuprofen (Motrin Ib) 200 Mg Tablet, 200 MG PO PRN Q4-6HRS PRN for PAIN, (Reported) Entered as Reported by: Tiff Rodriguez on 09/13/201954 Last Action: New Order on 09/13/201954 by Tiff Rodriguez Oxycodone/Apap 10-325 (Percocet 10-325 Mg Tablet ) 1 Each Tablet, 1 TAB PO PRN Q6HRS PRN for MODERATE TO SEVERE PAIN, #30 Prescribed by: BARBARA FLANNERY on 09/25/20 1214 [Dicyclomine HCl] 10 MG/1 ML VIAL, 10 MG IM PRN QID PRN for ABDOMINAL CRAMPS, # 30 Prescribed by: BARBARA FLANNERY on 09/25/20 1211 Patient Instructions Patient Instructions > 30 min face to face gen surg, ID 5 more days abx Justicifation of Admission Dx: Justifications for Admission: Justification of Admission Dx: Yes Sepsis: Hemodynamic Instability BARBARA FLANNERY MD Sep 25, 2020 12:51
[2020-09-25] MEDS ORDERED: LACTOBACILLUS RHAMNOSUS GG 1 CAPSULE. PO SCH (13:00)
--- NOTE | 2020-09-25 13:05 | NUR ---
Discharge Note: ROD NICHOLSON [address] Discharge instructions and discharge home medications reviewed with Patient and a copy given. All questions have been answered and understanding verbalized. The following instructions and handouts were given: F/Uwith PCP within one week. F/U with general surgery as scheduled. Discontinued lines and drains: Central Line TL, R Hand PIV, RUQ STONE Drain. Patient discharged to Home or Self Care with Family Member via Wheelchair.
== END 2020-09-25 13:05 | disposition home or self-care (01) | DRG 853 ==
LOC: 6 SOUTH 17:10 → 1 WEST ICU 09-14 10:58 → 6 SOUTH 09-16 20:55
PROVIDERS: ADMIT Internal Medicine; ATTEND Internal Medicine
PROC: 8E0W4CZ Robotic Assisted Procedure of Trunk Region, Percutaneous Endoscopic Approach (ICD-10-PCS; 2020-09-14)
PROC: 02HV33Z Insertion of Infusion Device into Superior Vena Cava, Percutaneous Approach (ICD-10-PCS; 2020-09-14)
PROC: 0DU647Z Supplement Stomach with Autologous Tissue Substitute, Percutaneous Endoscopic Approach (ICD-10-PCS; principal; 2020-09-14 13:00)
DX: A41.9 Sepsis, unspecified organism (principal); N17.0 Acute kidney failure with tubular necrosis; E43 Unspecified severe protein-calorie malnutrition; R65.21 Severe sepsis with septic shock; K25.5 Chronic or unspecified gastric ulcer with perforation; D62 Acute posthemorrhagic anemia; E87.1 Hypo-osmolality and hyponatremia; J90 Pleural effusion, not elsewhere classified; M84.412A Pathological fracture, left shoulder, initial encounter for fracture; E87.6 Hypokalemia; F10.20 Alcohol dependence, uncomplicated; F17.200 Nicotine dependence, unspecified, uncomplicated; Z20.822 Contact with and (suspected) exposure to COVID-19; G89.29 Other chronic pain; L40.0 Psoriasis vulgaris; R59.0 Localized enlarged lymph nodes; Z82.49 Family history of ischemic heart disease and other diseases of the circulatory system; Z71.6 Tobacco abuse counseling; Z68.29 Body mass index [BMI] 29.0-29.9, adult
CPT/HCPCS: 36415; 71045; 71260; 74018; 80048; 80053; 80061; 80307; 81001; 81025; 83605; 83735; 84100; 84132; 84484; 85007; 85025; 85027; 85610; 87426; 87493; 93005; 93306; A4215; A4364; A4452; A4657; A4930; A6219; C9113; J0330; J0500; J0610; J0780; J2250; J2270; J2370; J2543; J2710; J3010; J3475; J3480; J3490; J7030; J7040; J7050; J7060; J7120; Q9967; 97110-GP; 97530-GP; G0378

== ENCOUNTER 2021-04-10 17:00 | Emergency (ER) | payer SELFPAY ==
[~2021-04-10] VITALS: Ht 175.3 cm; Wt 68.5 kg
[~2021-04-10 17:00] MED LIST: AMOX1TAB11 PO; DICYCLOMINE HCL IM; DOCU-148 PO; IBUP200T44 PO; NAPR500T8 PO; OXYC1TAB22 PO; PANT40TA77 PO; SUCR1ORA14 NG
[2021-04-10] MEDS ORDERED: IV NORMAL SALINE 1000ML BAG 1,000 ML IV SCH (17:45)
[2021-04-10] MEDS ORDERED: ONDANSETRON PF 4 MG/2 ML VIAL. IVP ONE (17:45)
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
[2021-04-10 17:54] LABS: BILIRUBIN,URINE NEGATIVE (NEG); CLARITY,URINE CLEAR; COLOR,URINE YELLOW; NITRITE,URINE NEGATIVE (NEG); PH,URINE 6.5 (<5.0-8.0); PROTEIN,URINE NEGATIVE (NEG-TRACE); UROBILINOGEN,URINE 0.2 mg/dL (0.2 mg/dL)
[2021-04-10 18:00] LABS: BARBITURATES NEG (NEG); BENZODIAZEPINES NEG (NEG); CANNABINOIDS NEG (NEG); COCAINE NEG (NEG); METHADONE NEG (NEG); OPIATES NEG (NEG); PHENCYCLIDINE NEG (NEG)
[2021-04-10] MEDS ORDERED: MULTIVIT INFUSN,ADULT 4,VIT K 10 ML, THIAMINE INJ 100 MG, FOLIC ACID INJ 1 MG in IV NOR... IV ONE (18:00)
[2021-04-10 18:04] LABS: AMPHETAMINE/METHAMPHETAMINE NEG (NEG)
[2021-04-10 18:05] LABS: BACTERIA,URINE FEW /HPF (0-FEW); RBC,URINE 0 /HPF (0-2); WBC,URINE 0 /HPF (0-4)
[2021-04-10 18:20] LABS: CALCIUM 8.2 mg/dL (8.5-10.1); CREATININE 0.6 mg/dL (0.6-1.0); GFR 108.1; POTASSIUM 3.7 mmol/L (3.5-5.1)
[2021-04-10 18:23] LABS: BASO # 0.1 x10^3/uL (0.0-0.2); BASO % 1 % (0-3); EOS # 0.1 x10^3/uL (0.0-0.7); EOS % 2 % (0-3); HEMATOCRIT 35.7 % (36.0-47.0); HEMOGLOBIN 11.3 g/dL (12.0-15.5); LYMPH # 2.4 x10^3/uL (1.0-4.8); LYMPH % 42 % (24-48); MEAN CORPUSCULAR HEMOGLOBIN 23 pg (25-35); MEAN CORPUSCULAR HGB CONC 32 g/dL (31-37); MEAN CORPUSCULAR VOLUME 73 fL (79-100); MONO # 0.4 x10^3/uL (0.0-1.1); MONO % 7 % (0-9); NEUT # 2.7 x10^3/uL (1.8-7.7); NEUT % 47 % (31-73); PLATELET COUNT 315 x10^3/uL (140-400); RED CELL DISTRIBUTION WIDTH 18.4 % (11.5-14.5); WHITE BLOOD COUNT 5.7 x10^3/uL (4.0-11.0)
[2021-04-10 18:26] LABS: ALBUMIN 3.7 g/dL (3.4-5.0); ALBUMIN/GLOBULIN RATIO 0.9 (1.0-1.7); TOTAL BILIRUBIN 0.3 mg/dL (0.2-1.0); TOTAL PROTEIN 7.8 g/dL (6.4-8.2)
[2021-04-10 19:30] LABS: % EOS 3 % (0-5); % LYMPHS 48 % (24-48); % MONOS 6 % (0-10); % SEGS 43 % (35-66); PLT ESTIMATE ADEQUATE (ADEQUATE)
[2021-04-10 19:31] LABS: ANISOCYTOSIS SLIGHT; HYPOCHROMIA SLIGHT; MICROCYTOSIS SLIGHT
[2021-04-10] MEDS ORDERED: IV NORMAL SALINE 1000ML BAG 1,000 ML IV ONE (20:45)
[2021-04-10 21:46] VITALS: BP 131/73
--- NOTE | 2021-04-11 07:39 | EKG ---
[facility] [address] [place] [address] Test Date: 2021-04-10 Test Time: 18:02:43 Pat Name: ROD NICHOLSON Department: Room: Gender: F [employer] Driver: : [id number] Requested By: ANA PAULA ERIC Order Number: [id number] Reading MD: Benjamin Schmid MD Measurements Intervals [place] Rate: 100 P: 21 OK: 158 QRS: 58 QRSD: 82 T: 38 QT: 344 QTc: 447 Interpretive Statements SINUS RHYTHM Electronically Signed On 04-15-2021 8:42:10 JAVA J2EE ARCHITECT by Benjamin Schmid MD
== END 2021-04-10 22:15 | disposition home or self-care (01) ==
LOC: ER 17:00
DX: F10.129 Alcohol abuse with intoxication, unspecified (principal); F17.200 Nicotine dependence, unspecified, uncomplicated; Y90.8 Blood alcohol level of 240 mg/100 ml or more
CPT/HCPCS: 36415; 80053; 80307; 81001; 82140; 83690; 85007; 85025; 93005; 96361; 96365; 96375; 99285; G0480; J2405; J3411; J3490; J7030; 96376